=== PATIENT | female | born 1940 | race Caucasian/White ===

== ENCOUNTER → 2017-11-03 | Outpatient (CLI) | payer MEDICARE ==
[2017-11-03 11:36] LABS: ALT 24 U/L (9-52); AST 23 U/L (14-36); Cholesterol 165 mg/dL (<200); HDL Cholesterol 42 mg/dL (40-60); LDL Cholesterol,Calculated 73 mg/dL (0-99); Triglycerides 248 mg/dL (<150)
== END | disposition home or self-care (01) ==
LOC: LABWHC1 10:46
PROVIDERS: ATTEND Internal Medicine Cardiovascular Disease
DX: E78.2 Mixed hyperlipidemia (principal)
CPT/HCPCS: 36415; 80061; 84450; 84460

== ENCOUNTER → 2018-07-07 | Outpatient (CLI) | payer MEDICARE | END | disposition home or self-care (01) | LOC: LABWHC1 11:45 | PROVIDERS: ATTEND Internal Medicine Cardiovascular Disease | DX: E78.2 Mixed hyperlipidemia (principal) | CPT/HCPCS: 36415; 80061; 84450; 84460 ==

== ENCOUNTER 2018-12-27 14:49 | Emergency (ER) | payer MEDICARE ==
[2018-12-27 15:38] VITALS: BP 163/68; PULSE 78; RESP 18; TEMP 98.1
[2018-12-27] MEDS ORDERED: traMADol 50 MG STARTER PACK 3 TAB BTL PO STA (15:58)
--- NOTE | 2018-12-27 16:00 | ED ---
Extremity Problem HPI - General Chief complaint: Extremity Problem,Nontraumatic Stated complaint: Hip Pain Time Seen by Provider: 12/27/18 15:39 Source: patient Mode of arrival: ambulatory Limitations: no limitations - History of Present Illness Initial comments: 78-year-old female presenting for right hip pain x 4 months. Patient states she has been told she has arthritis of the right hip. Patient's been through physical therapy. Patient states she has had imaging studies that revealed arthritis. Patient states that she takes Tylenol for this pain, she states that over the past 2 months. Increasing. She states the Tylenol no longer works. Patient denies any significant change within the last week he trauma or injury to the hip. She denies any fever or chills night sweats redness or decrease in ability to range at the right hip. Patient states it is tender with full range of motion as well as weightbearing, she states he use a walker for ambulation. Remaining review of systems negative, Patient denies any joint pain, shortness of breath, chest pain, back pain, abdominal pain, nausea or vomiting, numbness or tingling, dysuria or hematuria, constipation or diarrhea, headaches or visual changes, or any other complaints. - Related Data Home Medications Medication Instructions Recorded Confirmed Aspirin 81 mg PO DAILY 08/08/16 08/08/16 Atorvastatin [Lipitor] 80 mg PO HS 08/08/16 08/08/16 Isosorbide Mononitrate ER [Imdur] 30 mg PO DAILY 08/08/16 08/08/16 Losartan [Cozaar] 50 mg PO DAILY 08/08/16 08/08/16 Metoprolol Tartrate [Lopressor] 25 mg PO DAILY 08/08/16 08/08/16 Previous Rx's Medication Instructions Recorded traMADol HCL [Ultram] 50 mg PO Q6HR PRN 3 Days #12 tab 12/27/18 Allergies Allergy/AdvReac Type Severity Reaction Status Date / Time No Known Allergies Allergy Verified 08/08/16 20:55 Review of Systems ROS Statement: Those systems with pertinent positive or pertinent negative responses have been documented in the HPI. ROS Other: All systems not noted in ROS Statement are negative. Past Medical History Past Medical History: Coronary Artery Disease (CAD), COPD, Hypertension, Myocar dial Infarction ([place]) Additional Past Medical History / Comment(s): DIVERTICULITIS, INCONT OF URINE, UTI'S Last Myocardial Infarction Date:: 2014 History of Any Multi-Drug Resistant Organisms: None Reported Past Surgical History: Section, Heart Catheterization With Stent, Hysterectomy Additional Past Surgical History / Comment(s): cataracts removed from both eyes, COLONOSCOPY, D&C, BRONCHOSCOPY,PARTIAL HYSTERECTOMY Past Anesthesia/Blood Transfusion Reactions: No Reported Reaction Date of Last Stent Placement:: 2014 Past Psychological History: No Psychological Hx Reported Smoking Status: Current every day smoker Past Alcohol Use History: Rare Past Drug Use History: None Reported - Past Family History Father Family Medical History: Cancer Mother Family Medical History: Cancer Additional Family Medical History / Comment(s): COLON CA General Exam - General Exam Comments Initial Comments: General: The patient is awake and alert, in no distress, and does not appear acutely ill. Eye: Pupils are equal, round and reactive to light, extra-ocular movements are intact. No nystagmus. There is normal conjunctiva bilaterally. No signs of icterus. Ears, nose, mouth and throat: There are moist mucous membranes and no oral lesions. Neck: The neck is supple, there is no tenderness or JVD. Cardiovascular: There is a regular rate and rhythm. No murmur, rub or gallop is appreciated. Respiratory: Lungs are clear to auscultation, respirations are non-labored, breath sounds are equal. No wheezes, stridor, rales, or rhonchi. Musculoskeletal: Upon inspection of the right hip there is no erythema. Patient is tender to palpation over the hip joint. Patient is able to both passively and actively range at the right hip. Patient admits to tenderness, does not appear out of proportion. Strength 5/5 of the lower extremities equal and comparison bilaterally including the hips. Sensation intact both proximal and distal to complaint site. No midline tenderness to palpation of the lumbar spine. DP pulses equal bilaterally 2+. No lower extremity edema Neurological: A&O x 3. CN II-XII intact, There are no obvious motor or sensory deficits. Coordination appears grossly intact. Speech is normal. Skin: Skin is warm and dry and no rashes or lesions are noted. Psychiatric: Cooperative, appropriate mood & affect, normal judgment. Limitations: no limitations Course Vital Signs 12/27/18 15:34 Temperature 98.1 F Pulse Rate 78 Respiratory 18 Rate Blood Pressure 163/68 O2 Sat by Pulse 94 L Oximetry Medical Decision Making - Medical Decision Making Well-appearing 78-year-old male presented for right hip pain, patient states this is been ongoing for 4 months. Patient neurovascularly intact. No significant pain with passive or active range of motion. Patient states she was told she had arthritis about 2 weeks ago when she had imaging studies performed. Patient states she has undergone physical therapy and taken Tylenol for the pain. Patient states this has not helped. Patient states she needs something stronger. Patient is provided prescription for Ultram. Patient denies a significant change in pain, fall or constitutional symptoms. At this time feel patient's pain is most likely due to arthritis. Patient ambulates with walker at home. Patient was instructed to follow-up with orthopedic surgery for further evaluation and consultation outpatient in the next week. Patient is agreeable to care plan and discharge. I discussed the case with ibuprofen or Dr. Singh was agreeable to patient care plan and discharge at this time. Parameters were discussed with patient prior to discharge. Disposition Clinical Impression: Chronic right hip pain Disposition: HOME SELF-CARE Condition: Good Instructions (If sedation given, give patient instructions): Hip Pain (ED) Additional Instructions: Please use medication as discussed, no driving, drinking alcohol, the operating machinery or working under the influence of tramadol. Please follow-up with orthopedic surgery in the next week, please continue to use walker for ambulation. Please return to emergency room if the symptoms increase or worsen or for any other concerns. Prescriptions: traMADol HCL [Ultram] 50 mg PO Q6HR PRN 3 Days #12 tab PRN Reason: Pain Is patient prescribed a controlled substance at d/c from ED?: Yes When asked, does pt state using other controlled substances?: No If prescribed controlled substance>3 days was MAPS reviewed?: Prescribed <3 Days If opioid is for acute pain is fill amount 7 days or less?: Yes If Rx opioid, was Start Talking consent form obtained?: Yes Referrals: Angel Mendoza MD [Primary Care Provider] - 1-2 days Clinton Canseco DO [Doctor of Osteopathic Medicine] - 1-2 days Time of Disposition: 16:00
== END 2018-12-27 16:10 | disposition home or self-care (01) ==
LOC: EC 14:49
DX: G89.29 Other chronic pain (principal); M25.551 Pain in right hip; I25.10 Atherosclerotic heart disease of native coronary artery without angina pectoris; I10 Essential (primary) hypertension; I25.2 Old myocardial infarction; F17.200 Nicotine dependence, unspecified, uncomplicated; Z95.5 Presence of coronary angioplasty implant and graft; Z79.82 Long term (current) use of aspirin; Z79.899 Other long term (current) drug therapy
CPT/HCPCS: 99283

== ENCOUNTER 2019-01-10 23:24 | Emergency (ER) | payer MEDICARE ==
[2019-01-11] MEDS ORDERED: methylPREDNISolone SOD SUCCI 125 MG/2 ML VIAL IV STA (00:22)
[2019-01-11] MEDS ORDERED: KETOROLAC 30 MG/ML 1 ML VIAL IVP STA (00:22)
--- NOTE | 2019-01-11 01:03 | ED ---
Extremity Problem HPI - General Chief complaint: Extremity Problem,Nontraumatic Stated complaint: Hip pain Time Seen by Provider: 01/10/19 23:42 Source: patient, family, EMS Mode of arrival: EMS Limitations: no limitations - History of Present Illness Initial comments: 79-year-old female patient with osteoarthritis of the right hip presents to the emergency department today for evaluation of right hip pain. Patient states that she has been having problems of the right hip long time. Patient states he recently did see branch service specialist to perform testing and diagnosed with osteoarthritis. They have scheduled a right hip replacement for February 06 however patient states tonight the pain seems to be worse. States that she is unable to walk or move the leg because the pain is so severe. She denies any numbness or tingling to the extremity. She denies any new injury. Denies any fevers or chills with this. Patient states that she does take Advil and tramadol however the medications are not working. States that she did call the physician and they recommended she present here for further evaluation. - Related Data Home Medications Medication Instructions Recorded Confirmed Aspirin 81 mg PO DAILY 08/08/16 01/11/19 Atorvastatin [Lipitor] 80 mg PO HS 08/08/16 01/11/19 Isosorbide Mononitrate ER [Imdur] 30 mg PO DAILY 08/08/16 01/11/19 Losartan [Cozaar] 50 mg PO DAILY 08/08/16 01/11/19 Metoprolol Tartrate [Lopressor] 25 mg PO DAILY 08/08/16 01/11/19 Previous Rx's Medication Instructions Recorded traMADol HCL [Ultram] 50 mg PO Q6HR PRN 3 Days #12 tab 12/27/18 Naproxen [EC-Naprosyn] 500 mg PO BID #30 tablet. 01/11/19 Allergies Allergy/AdvReac Type Severity Reaction Status Date / Time No Known Allergies Allergy Verified 08/08/16 20:55 Review of Systems ROS Statement: Those systems with pertinent positive or pertinent negative responses have been documented in the HPI. ROS Other: All systems not noted in ROS Statement are negative. Past Medical History Past Medical History: Coronary Artery Disease (CAD), COPD, Hypertension, Myocardial Infarction ([place]), Osteoarthritis ([place]) Additional Past Medical History / Comment(s): DIVERTICULITIS, INCONT OF URINE, UTI'S Last Myocardial Infarction Date:: 2014 History of Any Multi-Drug Resistant Organisms: None Reported Past Surgical History: Section, Heart Catheterization With Stent, Hysterectomy Additional Past Surgical History / Comment(s): cataracts removed from both eyes, COLONOSCOPY, D&C, BRONCHOSCOPY,PARTIAL HYSTERECTOMY, lazer eye sx Past Anesthesia/Blood Transfusion Reactions: No Reported Reaction Date of Last Stent Placement:: 2014 Past Psychological History: No Psychological Hx Reported Smoking Status: Current every day smoker Past Alcohol Use History: Rare Past Drug Use History: None Reported - Past Family History Father Family Medical History: Cancer Mother Family Medical History: Cancer Additional Family Medical History / Comment(s): COLON [place] General Exam Limitations: no limitations General appearance: alert, in no apparent distress, other (Physical well- developed, well-nourished elderly female patient in no acute distress. Vital signs upon presentation are temperature 97.9F, pulse 72, respirations 18, blood pressure 91/76, pulse ox 99% on room air.) Eye exam: Present: normal appearance, PERRL, EOMI. Absent: scleral icterus, conjunctival injection, periorbital swelling ENT exam: Present: normal exam, normal oropharynx, mucous membranes moist Respiratory exam: Present: normal lung sounds bilaterally. Absent: respiratory distress, wheezes, rales, rhonchi, stridor Cardiovascular Exam: Present: regular rate, normal rhythm, normal heart sounds. Absent: systolic murmur, diastolic murmur, rubs, gallop, clicks GI/Abdominal exam: Present: soft, normal bowel sounds. Absent: distended, tenderness, guarding, rebound, rigid Extremities exam: Present: normal inspection, full ROM, normal capillary refill, other (Increased pain with range of motion to the right hip. Skin is otherwise pink, warm, dry. Cap refills less than 3 seconds. Pedal and posttibial pulses are 2+ and equal bilaterally.). Absent: tenderness, pedal edema, joint swelling, calf tenderness Neurological exam: Present: alert, oriented X3, CN II-XII intact Psychiatric exam: Present: normal affect, normal mood Skin exam: Present: warm, dry, intact, normal color. Absent: rash Course Vital Signs 01/10/19 01/11/19 23:25 03:41 Temperature 97.9 F 98.7 F Pulse Rate 72 82 Respiratory 18 20 Rate Blood Pressure 91/76 110/61 O2 Sat by Pulse 99 92 L Oximetry Medical Decision Making - Medical Decision Making 79 old female patient presents to the emergency department today for evaluation of increase in her chronic right hip pain. Physical examination was done unremarkable. Patient doesn't have increased pain with any attempt at movement of the right hip. No erythema or swelling. Neurovascular status are intact. Patient is scheduled to have a hip replacement on February 06 and has recently had evaluation by orthopedics including imaging. Patient did receive steroids and Toradol here in the emergency department. This did not improve her pain she was still unable to handle he. We did administer Dilaudid. Patient was then able to ambulate and does feel much better. She'll be discharged with a prescription of naproxen and the steroids. She is instructed to follow-up with branch service specialist for recheck as soon as possible. Return parameters were discussed in detail. She verbalizes understanding and agrees with this plan. Disposition Clinical Impression: Osteoarthritis of right hip Disposition: HOME SELF-CARE Condition: Good Instructions (If sedation given, give patient instructions): Osteoarthritis (ED), Hip Pain (ED) Additional Instructions: Stop taking Advil, start taking naproxen. Complete steroid prescription and full. Follow-up with the branch service specialist for recheck as soon as possible. Return to the emergency department immediately for any new, worsening, or concerning symptoms. Prescriptions: Naproxen [EC-Naprosyn] 500 mg PO BID #30 tablet.dr Is patient prescribed a controlled substance at d/c from ED?: No Referrals: Angel Mendoza MD [Primary Care Provider] - 1-2 days Clinton Canseco DO [Doctor of Osteopathic Medicine] - 1-2 days Time of Disposition: 03:57
[2019-01-11] MEDS ORDERED: HYDROmorphone 2 MG/ML 1 ML SYRINGE IM STA (02:10)
[2019-01-11] MEDS ORDERED: HYDROmorphone 1 MG/ML 1 ML SYRINGE IVP STA (03:05)
[2019-01-11 05:24] VITALS: BP 115/81; PULSE 87; RESP 18; TEMP 98.6
== END 2019-01-11 05:15 | disposition home or self-care (01) ==
LOC: EC 23:24
DX: M16.11 Unilateral primary osteoarthritis, right hip (principal); I25.10 Atherosclerotic heart disease of native coronary artery without angina pectoris; I10 Essential (primary) hypertension; I25.2 Old myocardial infarction; F17.200 Nicotine dependence, unspecified, uncomplicated; Z79.82 Long term (current) use of aspirin; Z79.899 Other long term (current) drug therapy; Z95.5 Presence of coronary angioplasty implant and graft; Z53.8 Procedure and treatment not carried out for other reasons
CPT/HCPCS: 99284; 96374; 96375 ×2; J2930; J1885; J1170

== ENCOUNTER → 2019-01-28 | Outpatient (CLI) | payer MEDICARE | END | disposition home or self-care (01) | LOC: LABPAT 10:24 | PROVIDERS: ATTEND Orthopaedic Surgery | DX: Z01.812 Encounter for preprocedural laboratory examination (principal); M16.11 Unilateral primary osteoarthritis, right hip | CPT/HCPCS: 36415; 86850; 86900; 86901; 87070 ==

== ENCOUNTER → 2019-02-01 | Outpatient (CLI) | payer MEDICARE ==
[2019-02-01 15:29] LABS: Prothrombin Time 10.5 sec (9.0-12.0)
[2019-02-01 15:40] LABS: Anisocytosis Slight; Basophils % (A) 0 %; Eosinophils # (A) 0.1 k/uL (0-0.7); Eosinophils % (A) 1 %; HCT 35.3 % (34.0-46.0); Hypochromasia Slight; Lymphocytes # (A) 2.1 k/uL (1.0-4.8); Lymphocytes % (A) 21 %; MCH 28.4 pg (25.0-35.0); MCHC 31.1 g/dL (31.0-37.0); MCV 91.3 fL (80.0-100.0); Mean Platelet Volume 7.2; Monocytes # (A) 0.5 k/uL (0-1.0); Monocytes % (A) 5 %; Neutrophils # (A) 7.1 k/uL (1.3-7.7); Neutrophils % (A) 70 %; Platelet Count 397 k/uL (150-450); RBC 3.87 m/uL (3.80-5.40); RDW 16.9 % (11.5-15.5); WBC 10.1 k/uL (3.8-10.6)
== END ==
LOC: LABPAT 14:35
PROVIDERS: ATTEND Orthopaedic Surgery
DX: Z01.812 Encounter for preprocedural laboratory examination (principal); M16.11 Unilateral primary osteoarthritis, right hip; Z51.81 Encounter for therapeutic drug level monitoring; Z79.01 Long term (current) use of anticoagulants
CPT/HCPCS: 36415; 80051; 85025; 85610

== ENCOUNTER 2019-02-07 12:06 | Inpatient (IN) | payer MEDICARE ==
--- NOTE | 2019-02-06 12:44 | HP ---
HISTORY AND PHYSICAL REASON FOR ADMISSION: Surgery scheduled 02/07/2019 Edie Villalta is a 79-year-old patient seen with symptomatic right hip osteoarthritis. We discussed treatment options. She elected to proceed with right total hip arthroplasty. Consent was obtained. Medical clearance was provided by Dr. Mendoza. Cardiac clearance was provided by Dr. Clayton. PAST MEDICAL HISTORY: Cardiovascular disease, hypertension, hyperlipidemia. PAST SURGICAL HISTORY: Cardiac catheterization with stent insertion. DAILY MEDICATIONS: Aspirin, atorvastatin, isosorbide, losartan, metoprolol. ALLERGIES: None. SOCIAL HISTORY: Smokes 1 pack of cigarettes daily. PHYSICAL EXAMINATION: Evaluation of the right hip: She has limited range of motion, severe pain. Positive hip impingement sign. Straight leg raise negative. Distal neurovascular exam intact. RADIOGRAPHS: Radiographs of the right hip revealed moderate to severe osteoarthritic changes. IMPRESSION: 1. Right hip osteoarthritis. 2. Tobacco use. 3. Hypertension. 4. Hyperlipidemia. 5. Cardiovascular disease. PLAN: Right total hip arthroplasty. Surgery 02/07/2019. MMODL / IJN: [id number] /
[2019-02-07] MEDS ORDERED: FUROSEMIDE 10 MG/ML 4 ML VIAL IV STA (12:29)
--- NOTE | 2019-02-07 12:35 | ED ---
General Adult HPI - General Stated complaint: CHF Time Seen by Provider: 02/07/19 12:10 Source: RN notes reviewed - History of Present Illness Initial comments: This is a 79-year-old female presents emergency department stating that her legs are much more swollen than normal. Patient was supposed to have surgery in the right hip today but they saw her legs so swollen and decided to send her to the emergency department instead. Patient states this is been ongoing for at least a week or to start primary medical care doctor but he did not give her any diuretics. Patient states she is not feeling short of breath but they indicated to her in preop that she was oxygenating well. Patient denies any chest pain. Patient denies any palpitations. Patient denies any recent fever chills or cough. Patient denies abdominal pain. Patient has any nausea vomiting diarrhea. Patient denies lightheadedness dizziness or near syncopal episode. - Related Data Home Medications Medication Instructions Recorded Confirmed Aspirin 81 mg PO DAILY 08/08/16 02/07/19 Atorvastatin [Lipitor] 80 mg PO DAILY 08/08/16 02/07/19 Isosorbide Mononitrate ER [Imdur] 30 mg PO DAILY 08/08/16 02/07/19 Metoprolol Tartrate [Lopressor] 25 mg PO DAILY 08/08/16 02/07/19 Acetaminophen [Tylenol Extra 1,000 mg PO Q4H PRN 01/27/19 02/07/19 Strength] Calcium Carb-Vit D 250Mg-125Un 1 tab PO BID 01/27/19 02/07/19 [Oscal 250+D] HYDROcodone/APAP 5-325MG [[place]terson 1 tab PO BID 01/27/19 02/07/19 5-325] Losartan Potassium [Cozaar] 100 mg PO DAILY 01/27/19 02/07/19 Allergies Allergy/AdvReac Type Severity Reaction Status Date / Time No Known Allergies Allergy Verified 02/07/19 12:25 Review of Systems ROS Statement: Those systems with pertinent positive or pertinent negative responses have been documented in the HPI. ROS Other: All systems not noted in ROS Statement are negative. Past Medical History Past Medical History: Coronary Artery Disease (CAD), COPD, Hypertension, Myocardial Infarction ([place]), Osteoarthritis ([place]) Additional Past Medical History / Comment(s): TAKES FEW STEPS WITH WALKER BUT MOSTLY WHEEL CHAIR BOUND DUE TO PAIN RIGHT HIP. Last Myocardial Infarction Date:: 2014 History of Any Multi-Drug Resistant Organisms: None Reported Past Surgical History: Section, Heart Catheterization With Stent, Hysterectomy Additional Past Surgical History / Comment(s): LINDSAY CATARACTS , LASER EYE SURGERY., COLONOSCOPY, D&C, BRONCHOSCOPY,PARTIAL HYSTERECTOMY Past Anesthesia/Blood Transfusion Reactions: No Reported Reaction Date of Last Stent Placement:: 2014 Smoking Status: Former smoker Additional Past Alcohol Use History / Comment(s): QUIT SMOKING 3 DAYS AGO. (JANUARY 2019), SMOKED 1 PPD, STARTED SMOKING @ 20 YRS OLD - Past Family History Father Family Medical History: Cancer Mother Family Medical History: Cancer Additional Family Medical History / Comment(s): COLON CA General Exam - General Exam Comments Initial Comments: GENERAL: Patient is well-developed and well-nourished. Patient is nontoxic and well- hydrated and is in mild distress. ENT: Neck is soft and supple. No significant lymphadenopathy is noted. Oropharynx is clear. Moist mucous membranes. Neck has full range of motion without eliciting any pain. EYES: The sclera were anicteric and conjunctiva were pink and moist. Extraocular movements were intact and pupils were equal round and reactive to light. Eyelids were unremarkable. PULMONARY: Unlabored respirations. Good breath sounds bilaterally. No audible rales rhonchi or wheezing was noted. CARDIOVASCULAR: Patient is crackles bilateral bases. ABDOMEN: Soft and nontender with normal bowel sounds. No palpable organomegaly was noted. There is no palpable pulsatile mass. SKIN: Skin is clear with no lesions or rashes and otherwise unremarkable. NEUROLOGIC: Patient is alert and oriented x3. Cranial nerves II through XII are grossly intact. Motor and sensory are also intact. Normal speech, volume and content. Symmetrical smile. MUSCULOSKELETAL: Normal extremities with adequate strength and full range of motion. patient has 2+ edema LYMPHATICS: No significant lymphadenopathy is noted PSYCHIATRIC: Normal psychiatric evaluation. Course Vital Signs 02/07/19 02/07/19 12:26 14:20 Temperature 98.7 F Pulse Rate 95 92 Respiratory 24 18 Rate Blood Pressure 132/67 144/66 O2 Sat by Pulse 92 L 93 L Oximetry Medical Decision Making - Medical Decision Making EKG shows sinus rhythm with occasional PAC at 90 bpm OH interval 240 QRS is 94 QT interval 360 QTC is 440. Patient's EKG shows T-wave inversions in precordial leads V1 through V4 Chest x-ray shows pulmonary edema. Patient also has a pleural effusion on the left. Patient's troponin was elevated he did have some EKG changes I started the patient on heparin. I gave the patient Can't Because of the Elevated Potassium As Well As Some Kayexalate. I Spoke with Dr. Morales Agreed to Admit the Patient Admitted the Patient I Consulted Cardiology and Nephrology. - Lab Data Result diagrams: 02/07/19 11:45 02/07/19 11:45 Lab Results 02/07/19 02/07/19 02/07/19 Range/Units 11:45 11:45 11:45 WBC 10.9 H (3.8-10.6) k/uL RBC 4.02 (3.80-5.40) m/uL Hgb 11.0 L (11.4-16.0) gm/dL Hct 36.2 (34.0-46.0) % MCV 90.1 (80.0-100.0) fL MCH 27.4 (25.0-35.0) pg MCHC 30.4 L (31.0-37.0) g/dL RDW 17.8 H (11.5-15.5) % Plt Count 342 (150-450) k/uL Neutrophils % 76 % Lymphocytes % 15 % Monocytes % 7 % Eosinophils % 1 % Basophils % 0 % Neutrophils # 8.3 H (1.3-7.7) k/uL Lymphocytes # 1.6 (1.0-4.8) k/uL Monocytes # 0.7 (0-1.0) k/uL Eosinophils # 0.1 (0-0.7) k/uL Basophils # 0.0 (0-0.2) k/uL Hypochromasia Moderate Poikilocytosis Slight Anisocytosis Slight PT (9.0-12.0) sec INR (<1.2) APTT (22.0-30.0) sec Sodium 135 L (137-145) mmol/L Potassium 6.0 H (3.5-5.1) mmol/L Chloride 103 (98-107) mmol/L Carbon Dioxide 19 L (22-30) mmol/L Anion Gap 13 mmol/L BUN 86 H (7-17) mg/dL Creatinine 2.78 H (0.52-1.04) mg/dL Est GFR (CKD-EPI)AfAm 18 (>60 ml/min/1.73 sqM) Est GFR (CKD-EPI)NonAf 16 (>60 ml/min/1.73 sqM) Glucose 103 H (74-99) mg/dL Calcium 8.9 (8.4-10.2) mg/dL Magnesium 2.5 H (1.6-2.3) mg/dL Total Bilirubin 0.9 (0.2-1.3) mg/dL AST 59 H (14-36) U/L ALT 29 (9-52) U/L Alkaline Phosphatase 79 (38-126) U/L Troponin I (0.000-0.034) ng/mL NT-Pro-B Natriuret Pep 72838 pg/mL Total Protein 6.3 (6.3-8.2) g/dL Albumin 3.2 L (3.5-5.0) g/dL 02/07/19 02/07/19 Range/Units 11:45 14:10 WBC (3.8-10.6) k/uL RBC (3.80-5.40) m/uL Hgb (11.4-16.0) gm/dL Hct (34.0-46.0) % MCV (80.0-100.0) fL MCH (25.0-35.0) pg MCHC (31.0-37.0) g/dL RDW (11.5-15.5) % Plt Count (150-450) k/uL Neutrophils % % Lymphocytes % % Monocytes % % Eosinophils % % Basophils % % Neutrophils # (1.3-7.7) k/uL Lymphocytes # (1.0-4.8) k/uL Monocytes # (0-1.0) k/uL Eosinophils # (0-0.7) k/uL Basophils # (0-0.2) k/uL Hypochromasia Poikilocytosis Anisocytosis PT 10.3 (9.0-12.0) sec INR 1.0 (<1.2) APTT 21.6 L (22.0-30.0) sec Sodium (137-145) mmol/L Potassium (3.5-5.1) mmol/L Chloride (98-107) mmol/L Carbon Dioxide (22-30) mmol/L Anion Gap mmol/L BUN (7-17) mg/dL Creatinine (0.52-1.04) mg/dL Est GFR (CKD-EPI)AfAm (>60 ml/min/1.73 sqM) Est GFR (CKD-EPI)NonAf (>60 ml/min/1.73 sqM) Glucose (74-99) mg/dL Calcium (8.4-10.2) mg/dL Magnesium (1.6-2.3) mg/dL Total Bilirubin (0.2-1.3) mg/dL AST (14-36) U/L ALT (9-52) U/L Alkaline Phosphatase (38-126) U/L Troponin I 0.149 H* (0.000-0.034) ng/mL NT-Pro-B Natriuret Pep pg/mL Total Protein (6.3-8.2) g/dL Albumin (3.5-5.0) g/dL Critical Care Time Critical Care Time: Yes Total Critical Care Time: 35 Disposition Clinical Impression: Pleural effusion, Acute pulmonary edema, Elevated troponin, Acute renal failure Disposition: ADMITTED IP TO THIS HOSP Referrals: Angel Mendoza MD [Primary Care Provider] - 1-2 days Time of Disposition: 15:05
[2019-02-07 13:07] LABS: Albumin 3.2 g/dL (3.5-5.0); Calcium 8.9 mg/dL (8.4-10.2); Magnesium 2.5 mg/dL (1.6-2.3); Total Bilirubin 0.9 mg/dL (0.2-1.3); Total Protein 6.3 g/dL (6.3-8.2)
[2019-02-07 13:18] LABS: Anisocytosis Slight; Basophils % (A) 0 %; Eosinophils # (A) 0.1 k/uL (0-0.7); Eosinophils % (A) 1 %; HCT 36.2 % (34.0-46.0); Hypochromasia Moderate; Lymphocytes # (A) 1.6 k/uL (1.0-4.8); Lymphocytes % (A) 15 %; MCH 27.4 pg (25.0-35.0); MCHC 30.4 g/dL (31.0-37.0); MCV 90.1 fL (80.0-100.0); Mean Platelet Volume 7.9; Monocytes # (A) 0.7 k/uL (0-1.0); Monocytes % (A) 7 %; Neutrophils # (A) 8.3 k/uL (1.3-7.7); Neutrophils % (A) 76 %; Platelet Count 342 k/uL (150-450); Poikilocytosis Slight; RBC 4.02 m/uL (3.80-5.40); RDW 17.8 % (11.5-15.5); WBC 10.9 k/uL (3.8-10.6)
--- NOTE | 2019-02-07 13:52 | XR ---
EXAMINATION TYPE: XR chest 2V DATE OF EXAM: 02/07/2019 COMPARISON: Prior chest x-ray 08/08/2016 HISTORY: Difficulty breathing TECHNIQUE: Frontal and lateral views of the chest are obtained. FINDINGS: There is retrocardiac density with obscured left hemidiaphragm. Central vascularity and in terstitium are increased. There is no pneumothorax. Aorta is dense. Patient is rotated. Heart size is likely stable accounting for technique, likely enlarged. IMPRESSION: Correlate for congestive heart failure with associated left pleural effusion and associa nima atelectasis versus edema, pneumonia not excluded. Follow-up recommended.
[2019-02-07 14:52] LABS: Prothrombin Time 10.3 sec (9.0-12.0)
[2019-02-07] MEDS ORDERED: CALCIUM CHLORIDE 100 MG/ML 10 ML SYRINGE IVP STA (14:59)
[2019-02-07] MEDS ORDERED: SODIUM POLYSTYRENE SULFONATE 15 GM/60 ML BOTTLE PO STA (14:59)
[2019-02-07 15:00] LABS: Partial Thromboplastin Time 21.6 sec (22.0-30.0)
[2019-02-07] MEDS ORDERED: HEPARIN SODIUM,PORCINE 5,000 UNIT/ML 1 ML VIAL IV ONE (15:01)
[2019-02-07] MEDS: SODIUM CHLORIDE 0.9% 500 ML 500 ML IV SCH (15:57)
[2019-02-07] MEDS: HEPARIN SOD,PORK IN 0.45% NACL 25,000 UNIT in 0.45% NACL 1 250ML.BAG IV SCH (16:06)
[2019-02-07] MEDS: NITROGLYCERIN OINT 1 INCH/GM PACKET TOPICAL SCH ×2 (17:37→21:37)
[2019-02-07] MEDS: FUROSEMIDE 10 MG/ML 4 ML VIAL IV SCH (21:37)
[2019-02-07] MEDS ORDERED: ACETAMINOPHEN TAB 500 MG TAB PO PRN (22:08)
[2019-02-07] MEDS: HYDROcodone/APAP 5-325MG 1 EACH TAB PO PRN (22:20)
[2019-02-08] MEDS ORDERED: HYDROcodone/APAP 5-325MG 1 EACH TAB PO SCH
[2019-02-08] MEDS: FUROSEMIDE 10 MG/ML 4 ML VIAL IV SCH ×3 (06:24→20:33)
[2019-02-08 07:03] LABS: Albumin 2.7 g/dL (3.5-5.0); Calcium 8.9 mg/dL (8.4-10.2); Magnesium 2.4 mg/dL (1.6-2.3); Total Bilirubin 0.8 mg/dL (0.2-1.3); Total Protein 5.6 g/dL (6.3-8.2)
[2019-02-08 07:04] LABS: Potassium 4.9 mmol/L (3.5-5.1)
[2019-02-08] MEDS: NITROGLYCERIN OINT 1 INCH/GM PACKET TOPICAL SCH ×2 (08:24→12:11)
[2019-02-08] MEDS: HYDROcodone/APAP 5-325MG 1 EACH TAB PO PRN ×2 (08:24→20:32)
[2019-02-08] MEDS: ATORVASTATIN 80 MG TAB PO SCH (08:24)
[2019-02-08] MEDS ORDERED: LOSARTAN 50 MG TAB PO SCH (09:00)
--- NOTE | 2019-02-08 10:45 | P.NPCON ---
History of Present Illness - Reason for Consult acute renal failure - History of Present Illness Reason for consultation: Acute kidney injury History of present illness: Patient is a 79-year-old female seen in renal consultation for acute kidney injury. Patient's creatinine in 2014 was in the range of 0.6-0.8. In August 2016 it was 1.19. No other records available. Patient presented to the [facility] with lower extremity edema. Patient has history of arthritis and was scheduled to undergo right hip arthroplasty but was subsequently sent to the hospital due to edema. The surgery has been delayed for now. Creatinine admission was 2.78 and is 2.52 today. She is maintained on Lasix 40 mg IV 3 times daily. She admits to good urine output. Denies hematuria or dysuria. Denies use of nonsteroidals. Denies family history of renal disease. No history of diabetes. Potassium level was 6 on admission which was medically treated. It is 4.9 this morning. She does have history of coronary artery disease and had a stent placed in the past. Her BNP level was noted to be elevated at 49,300 on admission. Chest x-ray was suggestive of vascular congestion. She does have edema in her lower extremities. No vomiting or diarrhea. No fever or chills. No cough. Vital signs are stable. General: The patient appeared well nourished and normally developed. HEENT: Head exam is unremarkable. Neck is without jugular venous distension. LUNGS: Lungs are clear to auscultation and percussion. Breath sounds decreased. HEART: Rate and Rhythm are regular. First and second heart sounds normal. No m urmurs, rubs or gallops. ABDOMEN: Abdominal exam reveals normal bowel sounds. Non-tender and non-di stended. No evidence of peritonitis. EXTREMITITES: 1+ edema. Past Medical History Past Medical History: Coronary Artery Disease (CAD), COPD, Hypertension, Myoca rdial Infarction (IA), Osteoarthritis (OA) Additional Past Medical History / Comment(s): TAKES FEW STEPS WITH WALKER BUT MOSTLY WHEEL CHAIR BOUND DUE TO PAIN RIGHT HIP. Last Myocardial Infarction Date:: 2014 History of Any Multi-Drug Resistant Organisms: None Reported Past Surgical History: Section, Heart Catheterization With Stent, Hysterectomy Additional Past Surgical History / Comment(s): LINDSAY CATARACTS , LASER EYE SURGERY., COLONOSCOPY, D&C, BRONCHOSCOPY,PARTIAL HYSTERECTOMY Past Anesthesia/Blood Transfusion Reactions: No Reported Reaction Date of Last Stent Placement:: 2014 Past Psychological History: No Psychological Hx Reported Smoking Status: Former smoker Past Alcohol Use History: None Reported Additional Past Alcohol Use History / Comment(s): REPORTS CURRENTLY SMOKING 5 CIGARETTES PER DAY Past Drug Use History: None Reported - Past Family History Father Family Medical History: Cancer Mother Family Medical History: Cancer Additional Family Medical History / Comment(s): COLON CA Medications and Allergies Home Medications Medication Instructions Recorded Confirmed Type Aspirin 81 mg PO DAILY 08/08/16 02/07/19 History Atorvastatin [Lipitor] 80 mg PO DAILY 08/08/16 02/07/19 History Isosorbide Mononitrate ER [Imdur] 30 mg PO DAILY 08/08/16 02/07/19 History Metoprolol Tartrate [Lopressor] 25 mg PO DAILY 08/08/16 02/07/19 History Acetaminophen [Tylenol Extra 1,000 mg PO Q4H PRN 01/27/19 02/07/19 History Strength] Calcium Carb-Vit D 250Mg-125Un 1 tab PO BID 01/27/19 02/07/19 History [Oscal 250+D] HYDROcodone/APAP 5-325MG [Ola 1 tab PO BID 01/27/19 02/07/19 History 5-325] Losartan Potassium [Cozaar] 100 mg PO DAILY 01/27/19 02/07/19 History Allergies Allergy/AdvReac Type Severity Reaction Status Date / Time No Known Allergies Allergy Verified 02/07/19 20:02 Physical Exam Vitals: Vital Signs Temp Pulse Pulse Resp BP BP Pulse Ox 02/08/19 08:00 97.9 F 117 H 20 175/70 94 L 02/08/19 04:00 98.1 F 90 20 139/77 94 L 02/08/19 03:25 90 20 02/08/19 00:00 98.5 F 108 H 20 100/64 95 02/07/19 20:00 98.4 F 110 H 20 145/98 94 L 02/07/19 17:00 98.3 F 96 16 168/71 95 02/07/19 16:01 89 22 175/70 94 L 02/07/19 16:00 99.0 F 89 104 H 18 119/75 90/50 94 L 02/07/19 14:20 92 18 144/66 93 L 02/07/19 12:26 98.7 F 95 24 132/67 92 L Intake and Output 02/07/19 02/08/19 02/08/19 22:59 06:59 14:59 Intake Total 240 137.152 240 Output Total 1100 400 Balance -860 137.152 -160 Intake: Intake, IV Titration 137.152 Amount Heparin Sod,Pork in 0.45% 137.152 NaCl 25,000 unit In 0.45 % NaCl 1 250ml.bag @ 12 UNITS/KG/HR 8.491 mls/hr IV .Q24H [facility] Rx#: [id number] Oral 240 240 Output: Urine 1100 400 Other: # Voids 1 2 # Bowel Movements 1 Weight 50.5 kg Results - Lab Results Most recent lab results Calcium 8.9 mg/dL (8.4-10.2) 02/08/19 05:13 Magnesium 2.4 mg/dL (1.6-2.3) H 02/08/19 05:13 02/07/19 11:45 02/08/19 05:13 Assessment and Plan Plan: Assessment: 1. Acute kidney injury mostly prerenal secondary to cardiorenal syndrome. Creatinine 2.78 on admission and is 2.53 today. Baseline creatinine in the range of 0.6-0.8 from 2015. 2. Volume overload. Improving with diuresis. 3. Hyperkalemia secondary to acute kidney injury, metabolic acidosis and losartan. Improved with medical management. 4. Osteoarthritis of the right hip. Surgery delayed for now. 5. Benign hypertension. 6. Metabolic acidosis secondary to acute kidney injury. Better. Plan: Maintain Lasix 40 mg IV 3 times daily. Maintain Cozaar but need to hold the systolic blood pressure less than 120. Check urinalysis. Check renal ultrasound. Continue to monitor renal function and urine output. Thank you for the consultation. I will continue to follow the patient with you during her hospital stay.
--- NOTE | 2019-02-08 11:39 | US ---
EXAMINATION TYPE: US kidneys/renal and bladder DATE OF EXAM: 02/08/2019 COMPARISON: NONE CLINICAL HISTORY: tanya. EXAM MEASUREMENTS: Right Kidney: 10.9 x 4.1 x 4.7 cm Left Kidney: 10.3 x 4.7 x 5.6 cm Right Kidney: No hydronephrosis or masses seen Left Kidney: multiple cysts, largest measures 3.7 x 3.1 x 3.9 cm Bladder: wnl Bilateral Jets seen: No Incidental note is made of left pleural effusion. Cortical medullary junction and renal cortical echogenicity maintained. IMPRESSION: 1. Multiple simple appearing left renal cysts. Cortical medullary junction is maintained. 2. Incidental note made of a left pleural effusion.
--- NOTE | 2019-02-08 12:36 | P.CNOR ---
History of Present Illness - [facility] Consult date: 02/08/19 Consult reason: joint pain History of present illness: Patient is a 79-year-old female with Dr. Canseco, she has a known history of right hip osteoarthritis with significant discomfort. She was scheduled yester day for a right direct anterior total hip arthroplasty, it was determined in the preoperative area that the patient was in questionable heart failure. Surgery was canceled, she was admitted to the stepdown unit on 3 S. Multiple medical specialists having consult for her care. Patient was examined today at bedside, she is resting comfortably. She does note some discomfort in the right groin with movement. There is family at bedside today. She has no other orthopedic complaints this time. Review of Systems Constitutional: Reports as per [facility] Past Medical History Past Medical History: Coronary Artery Disease (CAD), COPD, Hypertension, Myocardial Infarction (MD), Osteoarthritis (OA) Additional Past Medical History / Comment(s): TAKES FEW STEPS WITH WALKER BUT MOSTLY WHEEL CHAIR BOUND DUE TO PAIN RIGHT HIP. Last Myocardial Infarction Date:: 2014 History of Any Multi-Drug Resistant Organisms: None Reported Past Surgical History: Section, Heart Catheterization With Stent, Hysterectomy Additional Past Surgical History / Comment(s): LINDSAY CATARACTS , LASER EYE SURGERY., COLONOSCOPY, D&C, BRONCHOSCOPY,PARTIAL HYSTERECTOMY Past Anesthesia/Blood Transfusion Reactions: No Reported Reaction Date of Last Stent Placement:: 2014 Past Psychological History: No Psychological Hx Reported Smoking Status: Former smoker Past Alcohol Use History: None Reported Additional Past Alcohol Use History / Comment(s): REPORTS CURRENTLY SMOKING 5 CIGARETTES PER DAY Past Drug Use History: None Reported - Past Family History Father Family Medical History: Cancer Mother Family Medical History: Cancer Additional Family Medical History / Comment(s): COLON CA Medications and Allergies Home Medications Medication Instructions Recorded Confirmed Type Aspirin 81 mg PO DAILY 08/08/16 02/07/19 History Atorvastatin [Lipitor] 80 mg PO DAILY 08/08/16 02/07/19 History Isosorbide Mononitrate ER [Imdur] 30 mg PO DAILY 08/08/16 02/07/19 History Metoprolol Tartrate [Lopressor] 25 mg PO DAILY 08/08/16 02/07/19 History Acetaminophen [Tylenol Extra 1,000 mg PO Q4H PRN 01/27/19 02/07/19 History Strength] Calcium Carb-Vit D 250Mg-125Un 1 tab PO BID 01/27/19 02/07/19 History [Oscal 250+D] HYDROcodone/APAP 5-325MG [Kathleen 1 tab PO BID 01/27/19 02/07/19 History 5-325] Losartan Potassium [Cozaar] 100 mg PO DAILY 01/27/19 02/07/19 History Allergies Allergy/AdvReac Type Severity Reaction Status Date / Time No Known Allergies Allergy Verified 02/07/19 20:02 Physical Examination Right lower extremity: No open lesions or sores present in the hip area Logroll maneuver of the hip reproduces some discomfort in the groin, she can straight leg raising minimal difficulty Plantar flexion, dorsiflexion, EHL, FHL are intact Sensory exam to light touch throughout extremities intact, dorsal pedis pulses 2+ Results - Labs Labs: Abnormal Lab Results - Last 24 Hours (Table) 02/07/19 02/07/19 02/07/19 Range/Units 11:45 11:45 11:45 WBC 10.9 H (3.8-10.6) k/uL Hgb 11.0 L (11.4-16.0) gm/dL MCHC 30.4 L (31.0-37.0) g/dL RDW 17.8 H (11.5-15.5) % Neutrophils # 8.3 H (1.3-7.7) k/uL APTT (22.0-30.0) sec Sodium 135 L (137-145) mmol/L Potassium 6.0 H (3.5-5.1) mmol/L Carbon Dioxide 19 L (22-30) mmol/L BUN 86 H (7-17) mg/dL Creatinine 2.78 H (0.52-1.04) mg/dL Glucose 103 H (74-99) mg/dL Magnesium 2.5 H (1.6-2.3) mg/dL AST 59 H (14-36) U/L Troponin I 0.149 H* (0.000-0.034) ng/mL Total Protein (6.3-8.2) g/dL Albumin 3.2 L (3.5-5.0) g/dL 02/07/19 02/07/19 02/07/19 Range/Units 14:10 21:32 21:32 WBC (3.8-10.6) k/uL Hgb (11.4-16.0) gm/dL MCHC (31.0-37.0) g/dL RDW (11.5-15.5) % Neutrophils # (1.3-7.7) k/uL APTT 21.6 L 41.7 H (22.0-30.0) sec Sodium (137-145) mmol/L Potassium (3.5-5.1) mmol/L Carbon Dioxide (22-30) mmol/L BUN (7-17) mg/dL Creatinine (0.52-1.04) mg/dL Glucose (74-99) mg/dL Magnesium (1.6-2.3) mg/dL AST (14-36) U/L Troponin I 0.146 H* (0.000-0.034) ng/mL Total Protein (6.3-8.2) g/dL Albumin (3.5-5.0) g/dL 02/08/19 02/08/19 02/08/19 Range/Units 03:29 05:13 05:13 WBC (3.8-10.6) k/uL Hgb (11.4-16.0) gm/dL MCHC (31.0-37.0) g/dL RDW (11.5-15.5) % Neutrophils # (1.3-7.7) k/uL APTT 45.7 H (22.0-30.0) sec Sodium (137-145) mmol/L Potassium (3.5-5.1) mmol/L Carbon Dioxide (22-30) mmol/L BUN 85 H (7-17) mg/dL Creatinine 2.53 H (0.52-1.04) mg/dL Glucose (74-99) mg/dL Magnesium 2.4 H (1.6-2.3) mg/dL AST 65 H (14-36) U/L Troponin I 0.136 H* (0.000-0.034) ng/mL Total Protein 5.6 L (6.3-8.2) g/dL Albumin 2.7 L (3.5-5.0) g/dL H & H 02/07/19 Range/Units 11:45 Hgb 11.0 L (11.4-16.0) gm/dL Hct 36.2 (34.0-46.0) % Coagulation 02/07/19 Range/Units 14:10 INR 1.0 (<1.2) Result Diagrams: 02/07/19 11:45 02/08/19 05:13 Assessment and Plan Plan: Assessment: 1. Right hip pain 2. Right hip osteoarthritis 3. Multiple medical comorbidities Plan: We did tentatively schedule patient for her hip surgery on 02/10/2019, pending clearances from other medical specialties Patient may weight-bear as tolerated with walker Pain control, oral medications needed Other medical specially recommendations at this time We'll continue to follow patient during inpatient stay Time with Patient: Less than 30
[2019-02-08] MEDS: HEPARIN SOD,PORK IN 0.45% NACL 25,000 UNIT in 0.45% NACL 1 250ML.BAG IV SCH (13:08)
[2019-02-08] MEDS: SODIUM CHLORIDE 0.9% 500 ML 500 ML IV SCH (13:08)
[2019-02-08 14:35] LABS: Appearance,Urine Cloudy (Clear); Bacteria,Urine Rare /hpf; Bilirubin,Urine Negative (Negative); Blood,Urine Negative (Negative); Color,Urine Light Yellow; Glucose,Urine (UA) Negative (Negative); Ketones,Urine Negative (Negative); Leukocyte Esterase,Urine Trace (Negative); Mucus,Urine Rare /hpf; Nitrite,Urine Negative (Negative); Protein,Urine Trace (Negative); RBC,Urine <1 /hpf (0-5); Squamous Epithelial Cell,Urine 1 /hpf (0-4); Urobilinogen,Urine <2.0 mg/dL (<2.0); WBC,Urine 3 /hpf (0-5)
[2019-02-08] MEDS ORDERED: HYDROcodone/APAP 5-325MG 1 EACH TAB ONE (15:20)
[2019-02-08] MEDS ORDERED: HEPARIN SODIUM,PORCINE 5,000 UNIT/ML 1 ML VIAL ONE (15:20)
[2019-02-08] MEDS: HEPARIN SODIUM,PORCINE 5,000 UNIT/ML 1 ML VIAL SQ SCH ×2 (16:40→23:54)
--- NOTE | 2019-02-08 16:57 | P.CRDCN ---
History of Present Illness Consult date: 02/08/19 Requesting physician: Justin Mendez Consult reason: congestive heart failure Chief complaint: Shortness of breath bilateral lower extremity edema History of present illness: This is a 79-year-old female with history of hypertension, hyperlipidemia, coronary artery disease with prior stent placement, COPD, she has also history of right hip osteoarthritis with significant discomfort on a regular basis. She was scheduled to undergo a right direct anterior total hip arthroplasty, it was determined in the preoperative area that the patient was in questionable heart failure therefore the surgery was canceled and she was admitted to the cardiac unit where we have seen her today in consultation. According to the patient, she's been having this noted swelling for quite some time, and it was felt that this was from her arthritis. He has also not been eating and drinking enough at home, because she has not wanted to have to move much to go to the bathroom because of the pain in her hip. Her blood pressure on arrival here 132/60 with a heart rate of 90, 92% on 2 L of oxygen. Blood pressure this morning 112/50 with a heart rate of 90, 95% on 5 L of oxygen. Chest x-ray showed congestive heart failure with associated left-sided pleural effusion and associated atelectasis versus edema. EKG showed normal sinus rhythm with incomplete right bundle branch block pattern and nonspecific ST-T wave changes. Ultrasound of the abdomen and bladder showed multiple simple appearing left renal cysts. Left pleural effusion noted. White blood cell count 10.9, hemoglobin 11.0, platelet count 342. Sodium 138, potassium 4.9, BUN 85 and 2.5 creatinine today. Yesterday her BUN was 86 and creatinine was 2.7. Patient's creatinine in 2014 was in the range of 0.6-0.8, in August 2016 was 1.1. BNP level49,300. Troponins 0.14, 0.14, 0.13. The patient was initiated on IV Lasix 40 mg every 8 hourly. She is also on Cozaar at home which we will discontinue at this time and start the patient on hydralazine. It was explained to the patient and her family in detail, that we would need to postpone her surgery until she is medically stable. We will obtain an echocardiogram with Yobany rocha, continue to laura. Past Medical History Past Medical History: Coronary Artery Disease (CAD), COPD, Hypertension, Myocardial Infarction (CT), Osteoarthritis (OA) Additional Past Medical History / Comment(s): TAKES FEW STEPS WITH WALKER BUT MOSTLY WHEEL CHAIR BOUND DUE TO PAIN RIGHT HIP. Last Myocardial Infarction Date:: 2014 History of Any Multi-Drug Resistant Organisms: None Reported Past Surgical History: Section, Heart Catheterization With Stent, Hysterectomy Additional Past Surgical History / Comment(s): LINDSAY CATARACTS , LASER EYE SURGERY., COLONOSCOPY, D&C, BRONCHOSCOPY,PARTIAL HYSTERECTOMY Past Anesthesia/Blood Transfusion Reactions: No Reported Reaction Date of Last Stent Placement:: 2014 Past Psychological History: No Psychological Hx Reported Smoking Status: Former smoker Past Alcohol Use History: None Reported Additional Past Alcohol Use History / Comment(s): REPORTS CURRENTLY SMOKING 5 CIGARETTES PER DAY Past Drug Use History: None Reported - Past Family History Father Family Medical History: Cancer Mother Family Medical History: Cancer Additional Family Medical History / Comment(s): COLON CA Medications and Allergies Home Medications Medication Instructions Recorded Confirmed Type Aspirin 81 mg PO DAILY 08/08/16 02/07/19 History Atorvastatin [Lipitor] 80 mg PO DAILY 08/08/16 02/07/19 History Isosorbide Mononitrate ER [Imdur] 30 mg PO DAILY 08/08/16 02/07/19 History Metoprolol Tartrate [Lopressor] 25 mg PO DAILY 08/08/16 02/07/19 History Acetaminophen [Tylenol Extra 1,000 mg PO Q4H PRN 01/27/19 02/07/19 History Strength] Calcium Carb-Vit D 250Mg-125Un 1 tab PO BID 01/27/19 02/07/19 History [Oscal 250+D] HYDROcodone/APAP 5-325MG [Cromwell 1 tab PO BID 01/27/19 02/07/19 History 5-325] Losartan Potassium [Cozaar] 100 mg PO DAILY 01/27/19 02/07/19 History Allergies Allergy/AdvReac Type Severity Reaction Status Date / Time No Known Allergies Allergy Verified 02/07/19 20:02 Physical Exam Vitals: Vital Signs Temp Pulse Pulse Resp BP BP Pulse Ox 02/08/19 11:41 97.5 F L 95 18 112/55 95 02/08/19 08:00 97.9 F 117 H 20 175/70 94 L 02/08/19 04:00 98.1 F 90 20 139/77 94 L 02/08/19 03:25 90 20 02/08/19 00:00 98.5 F 108 H 20 100/64 95 02/07/19 20:00 98.4 F 110 H 20 145/98 94 L 02/07/19 17:00 98.3 F 96 16 168/71 95 Intake and Output 02/08/19 02/08/19 02/08/19 06:59 14:59 22:59 Intake Total 137.152 549.63 Output Total 400 Balance 137.152 149.63 Intake: Intake, IV Titration 137.152 69.63 Amount Heparin Sod,Pork in 0.45% 137.152 69.63 NaCl 25,000 unit In 0.45 % NaCl 1 250ml.bag @ 12 UNITS/KG/HR 8.491 mls/hr IV .Q24H [facility] Rx#: [id number] Oral 480 Output: Urine 400 Other: # Voids 2 # Bowel Movements 1 Weight 50.5 kg PHYSICAL EXAMINATION: GENERAL: 79-year-old female in no acute distress at the time of my examination HEENT: Head is atraumatic, normocephalic. Pupils equal, round. Sclera anic teric. Conjunctiva are clear. Mucous membranes of the mouth are moist. Neck is supple. There is elevated jugular venous pressure. No carotid bruit is heard. HEART EXAMINATION: Heart S1 S2 1 systolic murmur is heard CHEST EXAMINATION: Lungs reveal rales bilaterally with diminished air entry to the bases, left greater than right ABDOMEN: Soft, nontender. Bowel sounds are heard. No organomegaly noted. EXTREMITIES: 2+ peripheral pulses with 2+ evidence of peripheral edema and no calf tenderness noted. NEUROLOGIC patient is awake, alert and oriented 3 . . Results 02/07/19 11:45 02/08/19 05:13 Cardiac Enzymes 02/07/19 02/08/19 02/08/19 Range/Units 21:32 03:29 05:13 AST 65 H (14-36) U/L Troponin I 0.146 H* 0.136 H* (0.000-0.034) ng/mL Coagulation 02/07/19 02/08/19 02/08/19 Range/Units 21:32 05:13 12:37 APTT 41.7 H 45.7 H 46.3 H (22.0-30.0) sec Comprehensive Metabolic Panel 02/07/19 02/08/19 Range/Units 21:32 05:13 Sodium 138 (137-145) mmol/L Potassium 4.9 4.9 (3.5-5.1) mmol/L Chloride 107 (98-107) mmol/L Carbon Dioxide 22 (22-30) mmol/L BUN 85 H (7-17) mg/dL Creatinine 2.53 H (0.52-1.04) mg/dL Glucose 88 (74-99) mg/dL Calcium 8.9 (8.4-10.2) mg/dL AST 65 H (14-36) U/L ALT 32 (9-52) U/L Alkaline Phosphatase 64 (38-126) U/L Total Protein 5.6 L (6.3-8.2) g/dL Albumin 2.7 L (3.5-5.0) g/dL Current Medications Generic Name Dose Route Start Last Admin Trade Name Freq PRN Reason Stop Dose Admin Acetaminophen 1,000 mg 02/07/19 22:08 Tylenol Tab PO Q6H PRN Pain Hydrocodone Bitart/Acetaminophen 2 each 02/07/19 22:10 02/08/19 08:24 Cromwell 5-325 PO 2 each Q6HR PRN Administration Pain Atorvastatin Calcium 80 mg 02/08/19 09:00 02/08/19 08:24 Lipitor PO 80 mg DAILY [facility] Administration Furosemide 40 mg 02/07/19 22:00 02/08/19 13:07 Lasix IV 40 mg Q8H [facility] Administration Heparin Sodium (Porcine) 5,000 unit 02/08/19 16:00 02/08/19 16:40 Heparin SQ Not Given Q8HR [facility] Sodium Chloride 500 mls @ 20 mls/hr 02/07/19 15:30 02/08/19 13:08 Saline 0.9% IV 20 mls/hr .Q24H [facility] Administration Losartan Potassium 100 mg 02/08/19 09:00 02/08/19 08:24 Cozaar PO 100 mg DAILY [facility] Administration Intake and Output 02/08/19 02/08/19 02/08/19 06:59 14:59 22:59 Intake Total 137.152 549.63 Output Total 400 Balance 137.152 149.63 Intake: Intake, IV Titration 137.152 69.63 Amount Heparin Sod,Pork in 0.45% 137.152 69.63 NaCl 25,000 unit In 0.45 % NaCl 1 250ml.bag @ 12 UNITS/KG/HR 8.491 mls/hr IV .Q24H [facility] Rx#: [id number] Oral 480 Output: Urine 400 Other: # Voids 2 # Bowel Movements 1 Weight 50.5 kg 02/07/19 11:45 02/08/19 05:13 EKG Interpretations (text) EKG shows a normal sinus rhythm with PACs and incomplete right bundle branch block pattern. Assessment and Plan Plan: Assessment and plan #1 congestive cardiac failure, LV function unknown #2 acute kidney injury #3 hyperkalemia #4 hypertension #5 hyperlipidemia #6 coronary artery disease with prior stent placement #7 osteoarthritis of the right hip, surgery delayed for now Plan We'll obtain an echocardiogram with Doppler study to assess the LV function, we will discontinue the Cozaar and start the patient on hydralazine at this time maintaining her blood pressure under adequate control. Continue with IV Lasix monitoring intake and output along with daily weights and daily lytes BUN and creatinine. His point in time patient is not medically stable to undergo surgery, continue current therapy. DNP note has been reviewed, I agree with a documented findings and plan of care. Patient was seen and examined.
[2019-02-08] MEDS: hydrALAZINE HCL 50 MG TAB PO SCH ×2 (17:37→20:33)
--- NOTE | 2019-02-08 18:28 | P.HPIM ---
History of Present Illness H&P Date: 02/08/19 Chief Complaint: short of breath History of presenting complaint: Severity pleasant 79-year-old patient of follows with from [place]. Her button sewer hand is Dr. Mauro Clayton. Chronic stable medical conditions include coronary artery with stent, COPD, hypertension, osteoarthritis. Patient was due to get a right hip surgery done yesterday. But patient of recently has become increasingly short of breath and wheezing increasing leg swelling. Finding it difficult to get around the house. This is been coming on about 3-4 weeks' time. No fever or chills. No sputum. Surgery was canceled and patient was admitted for the same. Patient currently got oxygen as has a walker. Patient's daughter and [id number] present. No chest pain. Review of systems: GEN.: Tired EYES: None HEENT: None NECK: None RESPIRATORY: Short of breath, cough, wheezing CARDIOVASCULAR: No chest pain, edema GASTROINTESTINAL: None GENITOURINARY: None MUSCULOSKELETAL: Pain In many joints LYMPHATICS: None HEMATOLOGICAL: None PSYCHIATRY: None NEUROLOGICAL: None Past medical history: Coronary artery with stent, COPD, hypertension, osteoarthritis Social history smoking a pack a day for 60 years for last 3-4 week is down to a few cigarettes a day. No alcohol. Lives with her boyfriend. Uses a walker. Investigations reviewed in the clinical context White count 10.9 hemoglobin 11 platelets 342 potassium 6 BUN 86 creatinine 2.78 Troponin I 0.149, 0.146, 0.136 EKG-flipped T waves in anterior leads Chest [id number] closely reviewed by me shows pulmonary edema Assessment: -Acute congestive heart failure exacerbation, EF not known -Acute COPD exacerbation and a current smoker -Chronic nicotine dependence patient active cigarette smoker -Primary osteoarthritis in multiple joints bilateral special he the right hip -Coronary artery disease diseases a prior history of stent -Essential hypertension -Acute hypoxic respiratory failure combination of COPD and CHF -Hyperkalemia in the setting of acute renal failure -Acute renal failure probably cardiorenal syndrome cannot rule out chronic kidney disease -Metabolic acidosis due to renal failure Plan: This is started on IV Lasix. Lovenox for DVT prophylaxis. We'll start the patient on DuoNeb's and bronchodilators and also stated IV steroids. Patient surgery currently is postponed. 2-D echocardiogram will be done. Also patient is made to cardiology and nephrology. Patient is to receive a cocktail for hyperkalemia. Repeat potassium is better. Adding bicarbonate. Care was discussed detail with the patient and family the bedside. Past Medical History Past Medical History: Coronary Artery Disease (CAD), COPD, Hypertension, Myocardial Infarction (IA), Osteoarthritis (OA) Additional Past Medical History / Comment(s): TAKES FEW STEPS WITH WALKER BUT MOSTLY WHEEL CHAIR BOUND DUE TO PAIN RIGHT HIP. Last Myocardial Infarction Date:: 2014 History of Any Multi-Drug Resistant Organisms: None Reported Past Surgical History: Section, Heart Catheterization With Stent, Hysterectomy Additional Past Surgical History / Comment(s): LINDSAY CATARACTS , LASER EYE SURGERY., COLONOSCOPY, D&C, BRONCHOSCOPY,PARTIAL HYSTERECTOMY Past Anesthesia/Blood Transfusion Reactions: No Reported Reaction Date of Last Stent Placement:: 2014 Past Psychological History: No Psychological Hx Reported Smoking Status: Former smoker Past Alcohol Use History: None Reported Additional Past Alcohol Use History / Comment(s): REPORTS CURRENTLY SMOKING 5 CIGARETTES PER DAY Past Drug Use History: None Reported - Past Family History Father Family Medical History: Cancer Mother Family Medical History: Cancer Additional Family Medical History / Comment(s): COLON CA Medications and Allergies Home Medications Medication Instructions Recorded Confirmed Type Aspirin 81 mg PO DAILY 08/08/16 02/07/19 History Atorvastatin [Lipitor] 80 mg PO DAILY 08/08/16 02/07/19 History Isosorbide Mononitrate ER [Imdur] 30 mg PO DAILY 08/08/16 02/07/19 History Metoprolol Tartrate [Lopressor] 25 mg PO DAILY 08/08/16 02/07/19 History Acetaminophen [Tylenol Extra 1,000 mg PO Q4H PRN 01/27/19 02/07/19 History Strength] Calcium Carb-Vit D 250Mg-125Un 1 tab PO BID 01/27/19 02/07/19 History [Oscal 250+D] HYDROcodone/APAP 5-325MG [[place] 1 tab PO BID 01/27/19 02/07/19 History 5-325] Losartan Potassium [Cozaar] 100 mg PO DAILY 01/27/19 02/07/19 History Allergies Allergy/AdvReac Type Severity Reaction Status Date / Time No Known Allergies Allergy Verified 02/07/19 20:02 Physical Exam Vitals: Vital Signs Temp Pulse Pulse Resp BP BP Pulse Ox 02/08/19 11:41 97.5 F L 95 18 112/55 95 02/08/19 08:00 97.9 F 117 H 20 175/70 94 L 02/08/19 04:00 98.1 F 90 20 139/77 94 L 02/08/19 03:25 90 20 02/08/19 00:00 98.5 F 108 H 20 100/64 95 02/07/19 20:00 98.4 F 110 H 20 145/98 94 L 02/07/19 17:00 98.3 F 96 16 168/71 95 02/07/19 16:01 89 22 175/70 94 L 02/07/19 16:00 99.0 F 89 104 H 18 119/75 90/50 94 L 02/07/19 14:20 92 18 144/66 93 L 02/07/19 12:26 98.7 F 95 24 132/67 92 L Intake and Output 02/07/19 02/08/19 02/08/19 22:59 06:59 14:59 Intake Total 240 137.152 240 Output Total 1100 400 Balance -860 137.152 -160 Intake: Intake, IV Titration 137.152 Amount Heparin Sod,Pork in 0.45% 137.152 NaCl 25,000 unit In 0.45 % NaCl 1 250ml.bag @ 12 UNITS/KG/HR 8.491 mls/hr IV .Q24H [facility] Rx#: [id number] Oral 240 240 Output: Urine 1100 400 Other: # Voids 1 2 # Bowel Movements 1 Weight 50.5 kg Results CBC & Chem 7: 02/07/19 11:45 02/08/19 05:13 Labs: Abnormal Lab Results - Last 24 Hours (Table) 02/07/19 02/07/19 02/07/19 Range/Units 11:45 11:45 11:45 WBC 10.9 H (3.8-10.6) k/uL Hgb 11.0 L (11.4-16.0) gm/dL MCHC 30.4 L (31.0-37.0) g/dL RDW 17.8 H (11.5-15.5) % Neutrophils # 8.3 H (1.3-7.7) k/uL APTT (22.0-30.0) sec Sodium 135 L (137-145) mmol/L Potassium 6.0 H (3.5-5.1) mmol/L Carbon Dioxide 19 L (22-30) mmol/L BUN 86 H (7-17) mg/dL Creatinine 2.78 H (0.52-1.04) mg/dL Glucose 103 H (74-99) mg/dL Magnesium 2.5 H (1.6-2.3) mg/dL AST 59 H (14-36) U/L Troponin I 0.149 H* (0.000-0.034) ng/mL Total Protein (6.3-8.2) g/dL Albumin 3.2 L (3.5-5.0) g/dL 02/07/19 02/07/19 02/07/19 Range/Units 14:10 21:32 21:32 WBC (3.8-10.6) k/uL Hgb (11.4-16.0) gm/dL MCHC (31.0-37.0) g/dL RDW (11.5-15.5) % Neutrophils # (1.3-7.7) k/uL APTT 21.6 L 41.7 H (22.0-30.0) sec Sodium (137-145) mmol/L Potassium (3.5-5.1) mmol/L Carbon Dioxide (22-30) mmol/L BUN (7-17) mg/dL Creatinine (0.52-1.04) mg/dL Glucose (74-99) mg/dL Magnesium (1.6-2.3) mg/dL AST (14-36) U/L Troponin I 0.146 H* (0.000-0.034) ng/mL Total Protein (6.3-8.2) g/dL Albumin (3.5-5.0) g/dL 02/08/19 02/08/19 02/08/19 Range/Units 03:29 05:13 05:13 WBC (3.8-10.6) k/uL Hgb (11.4-16.0) gm/dL MCHC (31.0-37.0) g/dL RDW (11.5-15.5) % Neutrophils # (1.3-7.7) k/uL APTT 45.7 H (22.0-30.0) sec Sodium (137-145) mmol/L Potassium (3.5-5.1) mmol/L Carbon Dioxide (22-30) mmol/L BUN 85 H (7-17) mg/dL Creatinine 2.53 H (0.52-1.04) mg/dL Glucose (74-99) mg/dL Magnesium 2.4 H (1.6-2.3) mg/dL AST 65 H (14-36) U/L Troponin I 0.136 H* (0.000-0.034) ng/mL Total Protein 5.6 L (6.3-8.2) g/dL Albumin 2.7 L (3.5-5.0) g/dL Thrombosis Risk Factor Assmnt - Choose All That Apply Each Factor Represents 1 point: Abnormal pulmonary function (COPD), Medical pt on bed rest, Obesity (BMI >25), Swollen legs (current) Each Risk Factor Represents 3 Points: Age 75 years or older Thrombosis Risk Factor Assessment Total Risk Factor Score: 7 Thrombosis Risk Factor Assessment Level: High Risk
[2019-02-08] MEDS: methylPREDNISolone SOD SUCCI 40 MG/ML 1 ML VIAL IV SCH ×2 (18:40→23:54)
[2019-02-08] MEDS: BUDESONIDE 1 MG/2 ML NEBU INHALATION SCH (20:24)
[2019-02-08] MEDS: IPRATROPIUM-ALBUTEROL 3 ML NEB INHALATION SCH (20:24)
[2019-02-08 21:02] LABS: Glucose,Whole Blood 138 mg/dL (75-99)
[2019-02-08] MEDS: INSULIN ASPART (NovoLOG) 100 UNIT/ML VIAL SQ SCH (21:06)
[2019-02-09] MEDS: IPRATROPIUM-ALBUTEROL 3 ML NEB INHALATION SCH ×7 (00:50→23:33)
[2019-02-09] MEDS: HYDROcodone/APAP 5-325MG 1 EACH TAB PO PRN (02:45)
[2019-02-09] MEDS: FUROSEMIDE 10 MG/ML 4 ML VIAL IV SCH ×3 (05:59→21:03)
[2019-02-09 06:00] LABS: Glucose,Whole Blood 223 mg/dL (75-99)
[2019-02-09] MEDS: INSULIN ASPART (NovoLOG) 100 UNIT/ML VIAL SQ SCH ×4 (06:32→21:03)
[2019-02-09 07:49] LABS: Calcium 8.6 mg/dL (8.4-10.2)
[2019-02-09] MEDS: ATORVASTATIN 80 MG TAB PO SCH (07:50)
[2019-02-09] MEDS: methylPREDNISolone SOD SUCCI 40 MG/ML 1 ML VIAL IV SCH ×2 (07:50→16:40)
[2019-02-09] MEDS: hydrALAZINE HCL 50 MG TAB PO SCH ×2 (07:50→16:40)
[2019-02-09] MEDS: HEPARIN SODIUM,PORCINE 5,000 UNIT/ML 1 ML VIAL SQ SCH ×2 (07:50→16:40)
[2019-02-09 07:57] LABS: Magnesium 2.7 mg/dL (1.6-2.3)
[2019-02-09] MEDS: BUDESONIDE 1 MG/2 ML NEBU INHALATION SCH ×2 (08:51→19:33)
[2019-02-09 11:26] VITALS: BMI 28.0
[2019-02-09 12:12] LABS: Glucose,Whole Blood 240 mg/dL (75-99)
[2019-02-09] MEDS: SODIUM CHLORIDE 0.9% 500 ML 500 ML IV SCH (16:35)
[2019-02-09 16:47] LABS: Glucose,Whole Blood 184 mg/dL (75-99)
--- NOTE | 2019-02-09 18:12 | PN ---
PROGRESS NOTE Patient is seen for followup for acute kidney injury. Patient was admitted with complaints of lower extremity edema and fluid overload. She is maintained on IV Lasix. She states she is feeling better. Her weight, however, is not significantly changed since admission. Serum creatinine is 2.48 today. It was at 2.7 on initial admission. On physical examination, blood pressure was 93/48 this morning, heart rate 92 per minute. Patient is afebrile. EXAMINATION OF THE HEART: S1 and S2. EXAMINATION OF LUNGS: Bilateral breath sounds are heard. Decreased breath sounds in the bases. ABDOMEN: Soft, non-tender. Examination of lower extremities shows edema 1+ bilaterally. Labs show sodium 138, potassium 6.0. Repeat potassium was 4.2 this morning. BUN 92, serum creatinine 2.48. ASSESSMENT: 1. Acute kidney injury, nonoliguric, mainly cardiorenal, somewhat improved. May continue with the IV Lasix. 2. Fluid overload, slowly improving. 3. Hyperkalemia on admission associated with acute kidney injury. 4. Osteoarthritis, right hip. Scheduled for right hip arthroplasty, but surgery on hold, given the heart failure and volume overload. PLAN: Continue with IV Lasix for now. Repeat labs in a.m. Avoid nephrotoxic agents. Ultrasound was unremarkable except for renal cysts. No contraindication to proceed with surgery from nephrology standpoint. MMODL / IJN: [id number] /
--- NOTE | 2019-02-09 19:09 | PN ---
PROGRESS NOTE This patient was supposed to have a hip surgery yesterday, but she was found to be in heart failure and so the surgery was canceled. The patient has a significant worsening of the renal failure. Creatinine today is 2.48 and BUN is 92. First and second heart sounds are normal. Lungs examination reveals bilateral basal rales. Chest x-ray suggestive of congestive cardiac failure. The patient's ultrasound of the abdomen does not show any evidence of hydronephrosis. We will continue the patient on the IV diuretics at present. Discussed the patient's condition with the patient's daughter. At present she is considered high risk for any surgical intervention. We may have to wait to 3 weeks to stabilize our heart failure and the renal functions. MMODL / IJN: [id number] /
[2019-02-09 20:43] LABS: Glucose,Whole Blood 245 mg/dL (75-99)
--- NOTE | 2019-02-09 22:55 | PN ---
PROGRESS NOTE DATE OF SERVICE: 02/09/2019 PRESENTING COMPLAINT: Short of breath. INTERVAL HISTORY: Patient admitted with CHF exacerbation, COPD exacerbation and acute hypoxic respiratory failure. Breathing is a bit better. Did tolerate some diet. Edema has gone down. Patient is also in acute renal failure from cardiorenal syndrome. REVIEW OF SYSTEMS: Done for constitutional, cardiovascular, GI, pulmonary; relevant findings as above. CURRENT MEDICATIONS: Reviewed. They include IV Lasix 40 mg q.8, bronchodilators and IV Solu-Medrol. PHYSICAL EXAMINATION: Temperature 97.8, pulse 53, respiration 18, blood pressure 102/58, pulse ox 96% on 3 L. GENERAL APPEARANCE: Sitting up, awake. Tired. EYES: Pupils equal. Conjunctivae normal. NECK: JVD unable to assess. Mass not palpable. RESPIRATORY: Effort increased. LUNGS: Decreased crackles. Wheezing present. CARDIOVASCULAR: Heart sounds irregular. Decreased edema. ABDOMEN: Soft, non-tender. Liver and spleen not palpable. PSYCHIATRY: Alert and oriented x3. Mood and affect normal. INVESTIGATIONS: Potassium was 6 and repeat was 4.2. BUN 92, creatinine 2.48. ASSESSMENT: 1. Acute congestive heart failure exacerbation; ejection fraction not known. 2. Acute chronic obstructive pulmonary disease exacerbation in a current smoker, slow to respond. 3. Chronic nicotine dependence. Patient is an active cigarette smoker. 4. Coronary artery disease with prior history of stent. 5. Essential hypertension. 6. Acute hypoxic respiratory failure; combination of chronic obstructive pulmonary disease and congestive heart failure. 7. Hyperkalemia in the setting of acute renal failure, recurrent. 8. Acute renal failure, probably cardiorenal syndrome. 9. Metabolic acid due to renal failure. Will continue patient on IV Lasix. We will keep a very close eye on patient's renal function. Again care was discussed the patient and family at the bedside. Surgery will have to be held off for a short time. In the meantime, continue with bronchodilators, steroids. Repeat electrolytes. MMODL / IJN: [id number] /
[2019-02-10] MEDS: methylPREDNISolone SOD SUCCI 40 MG/ML 1 ML VIAL IV SCH ×3 (00:01→16:47)
[2019-02-10] MEDS: HEPARIN SODIUM,PORCINE 5,000 UNIT/ML 1 ML VIAL SQ SCH ×3 (00:01→16:47)
[2019-02-10] MEDS: hydrALAZINE HCL 50 MG TAB PO SCH ×2 (00:02→07:43)
[2019-02-10] MEDS: IPRATROPIUM-ALBUTEROL 3 ML NEB INHALATION SCH ×5 (04:22→21:03)
[2019-02-10 06:06] LABS: Glucose,Whole Blood 230 mg/dL (75-99)
[2019-02-10] MEDS: FUROSEMIDE 10 MG/ML 4 ML VIAL IV SCH (06:15)
[2019-02-10] MEDS: INSULIN ASPART (NovoLOG) 100 UNIT/ML VIAL SQ SCH ×4 (06:16→21:38)
--- NOTE | 2019-02-10 06:33 | HP ---
HISTORY AND PHYSICAL ADDENDUM TO HISTORY AND PHYSICAL DATE OF SERVICE: 02/08/2019 PHYSICAL EXAMINATION: On examination, temperature 98.1, pulse 90, respiration 20, blood pressure 139/77, pulse ox 94% on 5 L. GENERAL APPEARANCE: Sitting up, tired, short of breath. EYES: Pupils equal. Conjunctivae normal. NECK: JVD possibly raised. Mass not palpable. RESPIRATORY: Effort increased. LUNGS: Decreased breath sounds. Some crackles, wheezing. CARDIOVASCULAR: First and second sounds . Edema present. ABDOMEN: Distended, soft. Liver and spleen not palpable. LYMPHATIC: No lymph nodes palpable in the neck and axilla. PSYCHIATRY: Alert and oriented x3. Mood and affect anxious appearing. MUSCULOSKELETAL: Evidence of osteoarthritis especially in the hands and knees. MMODL / IJN: [id number] /
[2019-02-10] MEDS: ATORVASTATIN 80 MG TAB PO SCH (07:43)
[2019-02-10] MEDS: BUDESONIDE 1 MG/2 ML NEBU INHALATION SCH ×2 (08:35→21:12)
--- NOTE | 2019-02-10 09:53 | XR ---
EXAMINATION TYPE: XR chest 2V DATE OF EXAM: 02/10/2019 COMPARISON: 02/07/2019 INDICATION: CHF TECHNIQUE: Frontal and lateral views of the chest are obtained. FINDINGS: The heart size is normal. The pulmonary vasculature is normal. Mild right lower lobe infiltrate is present. This is increasing. There is a small to moderate left pl eural effusion which appears stable.. IMPRESSION: 1. Stable small to moderate left pleural effusion. 2. Mild increasing infiltrate at the right base. Correlate for atelectasis or pneumonia. Atypical pul monary edema could be considered.
--- NOTE | 2019-02-10 09:58 | P.PN ---
Progress Note - Text Progress Note Date: 02/10/19 Patient is evaluated at bedside, her is present with her in the room. She was actually working with physical therapy when I came in. She continues to ambulate with the walker. Pain with regards to right hip is controlled at this time. After reviewing notes from the multiple medical specialists, patient is not medically cleared for right hip surgery at this time. I had the discussion with the patient today regarding rescheduling the right hip surgery when she is cleared by flanging roll operator. Patient is in good understanding. Patient will follow-up in the outpatient setting in the next few weeks
--- NOTE | 2019-02-10 11:07 | ECHOF ---
Referral Reason:chf MEASUREMENTS -------- HEIGHT: 157.5 cm WEIGHT: 69.4 kg BP: RVIDd: 3.2 cm (< 3.3) IVSd: 1.4 cm (0.6 - 1.1) LVIDd: 3.2 cm (3.9 - 5.3) LVPWd: 1.4 cm (0.6 - 1.1) IVSs: 1.7 cm LVIDs: 1.5 cm LVPWs: 2.0 cm Ao Diam: 2.9 cm (2.0 - 3.7) AV Cusp: 1.7 cm (1.5 - 2.6) LA Diam: 3.2 cm (2.7 - 3.8) MV EXCURSION: 9.024 mm (> 18.000) MV EF SLOPE: 39 mm/s (70 - 150) EPSS: 0.5 cm MV E Anand: 1.09 m/s MV DecT: 174 ms MV A Anand: 1.74 m/s MV E/A Ratio: 0.63 AV maxP.62 mmHg AV meanP.49 mmHg RAP: 5.00 mmHg RVSP: 42.70 mmHg FINDINGS -------- Sinus rhythm. This was a technically good study. The cavity size is decreased. There is moderate concentric left ventricular hypertrophy. Overall left ventricular systolic function is normal with, an EF between 65 - 70 %. Heart appears hyperdyna charli and LVH causing the gradients across the aortic valve and lvot to be high. The right ventricle is normal in size. The left atrial size is normal. The right atrial size is normal. Interatrial and interventricular septum intact. Aortic valve is trileaflet and is mildly thickened. Peak/mean gradient across the Aortic Valve is 2 8.62mmHg / 15.49mmHg. The mitral valve leaflets are mildly thickened. Mild mitral annular calcification present. Mild m itral regurgitation is present. Mild tricuspid regurgitation present. There is mild pulmonary hypertension. The right ventricular systolic pressure, as measured by Doppler, is 42.70mmHg. There is no pulmonic regurgitation present. The aortic root size is normal. Normal inferior vena cava with normal inspiratory collapse consistent with estimated right atrial pre ssure of 5 mmHg. There is no pericardial effusion. CONCLUSIONS -------- 1. Sinus rhythm. 2. This was a technically good study. 3. The cavity size is decreased. 4. There is moderate concentric left ventricular hypertrophy. 5. Overall left ventricular systolic function is normal with, an EF between 65 - 70 %. 6. Heart appears hyperdynamic and LVH causing the gradients across the aortic valve and lvot to be hi gh. 7. The right ventricle is normal in size. 8. The left atrial size is normal. 9. The right atrial size is normal. 10. Interatrial and interventricular septum intact. 11. Aortic valve is trileaflet and is mildly thickened. 12. Peak/mean gradient across the Aortic Valve is 28.62mmHg / 15.49mmHg. 13. The mitral valve leaflets are mildly thickened. 14. Mild mitral annular calcification present. 15. Mild mitral regurgitation is present. 16. Mild tricuspid regurgitation present. 17. There is mild pulmonary hypertension. 18. The right ventricular systolic pressure, as measured by Doppler, is 42.70mmHg. 19. There is no pulmonic regurgitation present. 20. The aortic root size is normal. 21. Normal inferior vena cava with normal inspiratory collapse consistent with estimated right atrial pressure of 5 mmHg. 22. There is no pericardial effusion. TRIMMING MACHINE SET UP OPERATOR: Teri David RDCS
--- NOTE | 2019-02-10 11:11 | P.PN ---
Subjective Patient is seen in follow-up for acute kidney injury. Patient's creatinine in 2014 was in the range of 0.6-0.8. In August 2016 it was 1.19. No other records available. Patient presented to the hospital with lower extremity edema which is improving. She is maintained on IV Lasix 40 mg 3 times daily. Urine output has been good. Vital signs are stable. General: The patient appeared well nourished and normally developed. HEENT: Head exam is unremarkable. Neck is without jugular venous distension. LUNGS: Breath sounds decreased. HEART: Rate and Rhythm are regular. First and second heart sounds normal. No murmurs, rubs or gallops. ABDOMEN: Abdominal exam reveals normal bowel sounds. Non-tender and non- distended. No evidence of peritonitis. EXTREMITITES: Trace edema. Objective - Vital Signs Vital signs: Vital Signs Temp 97.8 F 02/10/19 07:47 Pulse 92 02/10/19 08:56 Resp 18 02/10/19 07:47 BP 104/58 02/10/19 07:47 Pulse Ox 96 02/10/19 07:47 Intake & Output 02/09/19 02/10/19 02/10/19 18:59 06:59 18:59 Intake Total 480 260 240 Output Total 900 1550 500 Balance -420 -1290 -260 Weight 69.7 kg 67.6 kg Intake: Intake, IV Titration 60 Amount Sodium Chloride 0.9% 500 60 ml 500 ml @ 20 mls/hr IV .Q24H [facility] Rx#:[id number] Oral 480 200 240 Output: Urine 900 1550 500 Other: # Voids 1 1 # Bowel Movements 1 - Labs CBC & Chem 7: 02/07/19 11:45 02/09/19 12:31 Labs: Abnormal Lab Results - Last 24 Hours (Table) 02/09/19 02/09/19 02/09/19 Range/Units 11:43 16:44 20:42 POC Glucose (mg/dL) 240 H 184 H 245 H (75-99) mg/dL 02/10/19 Range/Units 06:05 POC Glucose (mg/dL) 230 H (75-99) mg/dL Assessment and Plan Plan: Assessment: 1. Acute kidney injury mostly prerenal secondary to cardiorenal syndrome. Creatinine 2.78 on admission and was 2.48 as of yesterday. Baseline creatinine in the range of 0.6-0.8 from 2015. Trace proteinuria on UA. No hydronephrosis noted on renal ultrasound. 2. Volume overload. Improving with diuresis. 3. Hyperkalemia secondary to acute kidney injury, metabolic acidosis and [place]. Improved with medical management. 4. Osteoarthritis of the right hip. Surgery delayed for now. 5. Benign hypertension. 6. Metabolic acidosis secondary to acute kidney injury. Plan: I will change Lasix to 40 mg orally twice daily. Avoid nephrotoxins. ECHO revealed preserved EF. Follow-up morning labs. Patient is cleared for right hip arthroplasty from nephrology standpoint.
[2019-02-10 11:54] LABS: Glucose,Whole Blood 162 mg/dL (75-99)
[2019-02-10] MEDS: METOPROLOL SUCCINATE (ER) 25 MG TAB.ER.24H PO SCH (12:04)
[2019-02-10 12:06] LABS: Magnesium 2.1 mg/dL (1.6-2.3)
[2019-02-10] MEDS ORDERED: FUROSEMIDE 40 MG TAB PO SCH (16:00)
[2019-02-10] MEDS: SODIUM CHLORIDE 0.9% 500 ML 500 ML IV SCH (16:28)
[2019-02-10 16:58] LABS: Glucose,Whole Blood 205 mg/dL (75-99)
[2019-02-10 21:04] LABS: Glucose,Whole Blood 160 mg/dL (75-99)
--- NOTE | 2019-02-10 21:13 | PN ---
PROGRESS NOTE This patient was supposed to have a hip surgery and the surgery was canceled because patient was found to be in heart failure. She is doing better. Her breathing is slightly improved. Chest x-ray still shows some congestive changes. The patient was also acute on chronic renal failure. Her creatinine is now 2.06, BUN is 85. First and second heart sounds are normal. Lungs reveal bilateral rhonchi. The patient's echocardiogram shows a hyperdynamic circulation with some increased LVOT gradient. PLAN: We will continue the patient on Lasix 40 mg b.i.d., discontinue hydralazine and start the patient on Lopressor 25 mg daily. We will gradually increase the dose of Toprol as necessary. We would like to get the patient stabilized for 2-3 weeks from heart failure point of view and after the patient remains euvolemic, the patient can undergo surgery. MARLO / JERI: [id number] /
[2019-02-10] MEDS: guaiFENesin 600 MG TABLET.ER PO SCH (21:38)
[2019-02-10] MEDS: FUROSEMIDE 100 MG in SODIUM CHLORIDE 0.9% 90 ML IV SCH (21:56)
--- NOTE | 2019-02-10 23:35 | PN ---
PROGRESS NOTE DATE OF SERVICE: 02/10/2019. PRESENTING COMPLAINT: Short of breath, cough. INTERVAL HISTORY: Patient with CHF exacerbation, COPD exacerbation, acute hypoxic respiratory failure. Breathing is better. Still congested. Edema has gone down. Short of breath at rest. The patient also felt to have a cardiorenal syndrome. REVIEW OF SYSTEMS: Done for constitutional, cardiovascular, GI, pulmonary; relevant findings as above. CURRENT MEDICATIONS: Reviewed that include IV Solu-Medrol, bronchodilator, switched to oral Lasix earlier today. PHYSICAL EXAMINATION: Temperature 97.7, pulse 101, respirations 22, blood pressure 108/55, pulse ox 95% on 2 L. GENERAL APPEARANCE: Sitting up, short of breath. EYES: Pupils equal. Conjunctivae normal. NECK: JVD possibly raised. Mass not palpable. Respiratory effort increased. LUNGS: Crackles are present. Wheezing present. CARDIOVASCULAR: Heart sounds irregular. Edema present. ABDOMEN: Soft, nontender. Liver and spleen not palpable. PSYCHIATRY: Alert, oriented x3. Mood and affect normal. INVESTIGATIONS: Potassium 4, BUN 85, creatinine 2.06. Accu-Cheks are noted. Chest x-ray film personally reviewed by me, shows left pleural effusion, pulmonary edema. ASSESSMENT: 1. Acute on chronic congestive heart failure exacerbation from diastolic dysfunction, EF 65 to 70 percent. 2. Hypertensive heart disease. 3. Acute chronic obstructive pulmonary disease exacerbation in a current smoker, slow to respond. 4. Chronic nicotine dependence patient is a cigarette smoker. 5. Coronary artery disease, prior history of stent. 6. Essential hypertension. 7. Acute hypoxic respiratory failure from chronic obstructive pulmonary disease and congestive heart failure. 8. Hyperkalemia in the setting of acute renal failure. 9. Acute renal failure, probably from cardiorenal syndrome. 10.Metabolic acidosis due to renal failure. PLAN: The patient still looks to be in fluid overload, especially symptomatically. At this point we will give the patient a Lasix drip overnight. We will also add Mucinex. Care was discussed with the patient and daughter at the bedside. Will follow. MMODL / IJN: [id number] /
[2019-02-11] MEDS: methylPREDNISolone SOD SUCCI 40 MG/ML 1 ML VIAL IV SCH ×3 (00:12→17:45)
[2019-02-11] MEDS: IPRATROPIUM-ALBUTEROL 3 ML NEB INHALATION SCH ×6 (00:26→19:55)
[2019-02-11] MEDS: FUROSEMIDE 100 MG in SODIUM CHLORIDE 0.9% 90 ML IV SCH (04:27)
[2019-02-11 06:14] LABS: Glucose,Whole Blood 232 mg/dL (75-99)
[2019-02-11] MEDS: INSULIN ASPART (NovoLOG) 100 UNIT/ML VIAL SQ SCH ×4 (06:26→20:40)
[2019-02-11 06:43] LABS: Calcium 8.1 mg/dL (8.4-10.2); Potassium 3.4 mmol/L (3.5-5.1)
[2019-02-11] MEDS: ATORVASTATIN 80 MG TAB PO SCH (08:31)
[2019-02-11] MEDS: guaiFENesin 600 MG TABLET.ER PO SCH ×2 (08:32→20:40)
[2019-02-11] MEDS: METOPROLOL SUCCINATE (ER) 25 MG TAB.ER.24H PO SCH (08:32)
[2019-02-11] MEDS: BUDESONIDE 1 MG/2 ML NEBU INHALATION SCH ×2 (08:54→19:56)
[2019-02-11] MEDS ORDERED: ENOXAPARIN 40 MG/0.4 ML SYRINGE SQ SCH (09:00)
[2019-02-11] MEDS ORDERED: POTASSIUM CHLORIDE ER 20 MEQ TAB.ER PO STA (09:25)
--- NOTE | 2019-02-11 09:33 | P.PN ---
Subjective Patient is seen in follow-up for acute kidney injury. Patient's creatinine in 2014 was in the range of 0.6-0.8. In August 2016 it was 1.19. No other records available. Patient presented to the hospital with lower extremity edema which is improving. Patient was receiving IV Lasix and was started on Lasix drip yesterday. Urine output has been good. Patient feels better. Renal function is worse which is due to diuresis. Creatinine 2.21 today. Vital signs are stable. General: The patient appeared well nourished and normally developed. HEENT: Head exam is unremarkable. Neck is without jugular venous distension. LUNGS: Breath sounds decreased. HEART: Rate and Rhythm are regular. First and second heart sounds normal. No murmurs, rubs or gallops. ABDOMEN: Abdominal exam reveals normal bowel sounds. Non-tender and non- distended. No evidence of peritonitis. EXTREMITITES: Trace edema. Objective - Vital Signs Vital signs: Vital Signs Temp 97.9 F 02/11/19 04:00 Pulse 96 02/11/19 09:14 Resp 18 02/11/19 04:00 BP 98/64 02/11/19 04:00 Pulse Ox 92 L 02/11/19 04:00 Intake & Output 02/10/19 02/11/19 02/11/19 18:59 06:59 18:59 Intake Total 960 65.167 Output Total 1300 600 Balance -340 -534.833 Weight 66.7 kg Intake: Intake, IV Titration 65.167 Amount Furosemide 100 mg In 65.167 Sodium Chloride 0.9% 90 ml @ 10 MG/HR 10 mls/hr IV .Q10H PAMELA Rx#: [id number] Oral 960 Output: Urine 1300 600 Other: # Voids 1 - Labs CBC & Chem 7: 02/07/19 11:45 02/11/19 05:44 Labs: Abnormal Lab Results - Last 24 Hours (Table) 02/10/19 02/10/19 02/10/19 Range/Units 11:29 11:32 16:43 Potassium (3.5-5.1) mmol/L BUN 85 H (7-17) mg/dL Creatinine 2.06 H (0.52-1.04) mg/dL Glucose 146 H (74-99) mg/dL POC Glucose (mg/dL) 162 H 205 H (75-99) mg/dL Calcium 8.0 L (8.4-10.2) mg/dL 02/10/19 02/11/19 02/11/19 Range/Units 21:01 05:44 06:09 Potassium 3.4 L (3.5-5.1) mmol/L BUN 87 H (7-17) mg/dL Creatinine 2.21 H (0.52-1.04) mg/dL Glucose 225 H (74-99) mg/dL POC Glucose (mg/dL) 160 H 232 H (75-99) mg/dL Calcium 8.1 L (8.4-10.2) mg/dL Assessment and Plan Plan: Assessment: 1. Acute kidney injury mostly prerenal secondary to cardiorenal syndrome. Creatinine 2.78 on admission and was 2.06 as of yesterday. It is 2.21 today due to aggressive diuresis. Baseline creatinine in the range of 0.6-0.8 from 2015. Trace proteinuria on UA. No hydronephrosis noted on renal ultrasound. 2. Volume overload. Improving with diuresis. 3. Hyperkalemia secondary to acute kidney injury, metabolic acidosis and losartan. Improved with medical management. Now hypokalemic from diuresis. 4. Osteoarthritis of the right hip. Surgery delayed for now. 5. Benign hypertension. Blood pressures on the lower side. 6. Metabolic acidosis secondary to acute kidney injury. Better. Plan: I will change Lasix to 40 mg IV twice daily. She can be transitioned over to 40 mg orally twice daily upon discharge. Avoid nephrotoxins. ECHO revealed preserved EF. Replace potassium. 40 mEq today. Add maintenance potassium supplementation. Patient will need a BMP and a mag rechecked 2-3 days postdischarge and follow up outpatient in the next 1-2 weeks.
[2019-02-11 12:09] LABS: Glucose,Whole Blood 163 mg/dL (75-99)
[2019-02-11] MEDS: FUROSEMIDE 10 MG/ML 4 ML VIAL IV SCH ×2 (12:30→20:40)
--- NOTE | 2019-02-11 14:54 | PN ---
PROGRESS NOTE This patient is admitted with respiratory distress secondary to acute exacerbation of chronic congestive heart failure as well as may have underlying some bronchospasm. Patient is feeling better. She is not in any respiratory distress. Blood pressure is 110/80 mmHg. First and second heart sounds are normal. Lungs reveal bilateral scattered wheezes. Patient's creatinine is 2.2. We will repeat the chest x- ray tomorrow. Continue IV Lasix for 24 hours and switch to the p.o. Lasix. Discussed the condition with daughter that the patient should be continued on the diuretics and bronchodilators for a couple of weeks and can be evaluated by Dr. Clayton as an outpatient and after her condition is stable, she can be considered for orthopedic surgery. MMODL / IJN: [id number] /
[2019-02-11 16:50] LABS: Glucose,Whole Blood 205 mg/dL (75-99)
[2019-02-11] MEDS: SODIUM CHLORIDE 0.9% 500 ML 500 ML IV SCH (17:45)
[2019-02-11 20:37] LABS: Glucose,Whole Blood 222 mg/dL (75-99)
[2019-02-11] MEDS: predniSONE 20 MG TAB PO SCH (20:39)
--- NOTE | 2019-02-11 21:24 | PN ---
PROGRESS NOTE DATE OF SERVICE: 02/11/2019 PRESENTING COMPLAINT: Short of breath, cough. INTERVAL HISTORY: Patient with CHF exacerbation, COPD exacerbation, acute hypoxic respiratory failure. I did put the patient on Lasix drip overnight. She put out close to 1000 mL. Edema has further gone down. Breathing is getting better. REVIEW OF SYSTEMS: Done for constitutional, cardiovascular, GI, pulmonary, relevant findings as above. CURRENT MEDICATIONS: Reviewed that include DuoNeb, switched over to IV Lasix 40 q.12h with Cardiology, IV Solu-Medrol. PHYSICAL EXAMINATION: VITAL SIGNS: Temperature 98.2, pulse 97, respiratory rate 16, blood pressure 109/75, pulse 91 percent on 3 L. GENERAL APPEARANCE: Sitting up, less short of breath. EYES: Pupils are equal. Conjunctivae normal. NECK: JVD raised. Mass not palpable. RESPIRATORY: Effort increased. LUNGS: Decreased breath sounds. Decreased crackle. Less wheezing. CARDIOVASCULAR: Heart sounds irregular. Decreased edema. ABDOMEN: Soft, nontender. Liver and spleen not palpable. PSYCHIATRY: Alert and oriented times three. Mood and affect normal. INVESTIGATIONS: Potassium 3.4, BUN 87, creatinine 2.21. ASSESSMENT: 1. Acute on chronic congestive heart failure exacerbation from diastolic dysfunction. EF 65-70 percent, improving. 2. Hypertensive heart disease. 3. Acute chronic obstructive pulmonary disease exacerbation in a current smoker. 4. Chronic nicotine dependence, patient is a cigarette smoker. 5. Coronary artery disease, prior history of stent. 6. Essential hypertension. 7. Acute hypoxic respiratory failure from chronic chronic obstructive pulmonary disease and congestive heart failure. 8. Hyperkalemia in a setting of acute renal failure. 9. Acute renal failure probably from cardiorenal syndrome. 10.Metabolic acidosis due to renal failure. PLAN: Care was discussed with the patient and daughter at the bedside. Dr. Garcia has switched the patient over to Lasix 40 q.12h. We will switch the patient to oral prednisone in the morning and expect the patient to be in the hospital for another day or 2. MMODL / IJN: [id number] /
[2019-02-12] MEDS: IPRATROPIUM-ALBUTEROL 3 ML NEB INHALATION SCH ×7 (00:47→23:55)
[2019-02-12 06:25] LABS: Glucose,Whole Blood 237 mg/dL (75-99)
--- NOTE | 2019-02-12 06:52 | XR ---
EXAMINATION TYPE: XR chest 2V DATE OF EXAM: 02/12/2019 HISTORY: f/u chf. REFERENCE: Previous study dated 02/10/2019. FINDINGS: Lung volumes are prominent. The heart is not enlarged. There is left basilar airspace disea se. There is a small left effusion. This is improved from previous. IMPRESSION: 1. COPD. 2. IMPROVING LEFT BASILAR AIRSPACE DISEASE. 3. SMALL LEFT EFFUSION.
[2019-02-12 07:01] LABS: Calcium 7.8 mg/dL (8.4-10.2); Magnesium 1.9 mg/dL (1.6-2.3); Potassium 3.9 mmol/L (3.5-5.1)
[2019-02-12] MEDS: INSULIN ASPART (NovoLOG) 100 UNIT/ML VIAL SQ SCH ×4 (07:09→20:46)
[2019-02-12] MEDS: POTASSIUM CHLORIDE ER 10 MEQ TAB.ER.PRT PO SCH (07:57)
[2019-02-12] MEDS: predniSONE 20 MG TAB PO SCH (07:57)
[2019-02-12] MEDS: METOPROLOL SUCCINATE (ER) 25 MG TAB.ER.24H PO SCH (07:58)
[2019-02-12] MEDS: guaiFENesin 600 MG TABLET.ER PO SCH ×2 (07:58→20:46)
[2019-02-12] MEDS: ENOXAPARIN 30 MG/0.3 ML SYRINGE SQ SCH (07:58)
[2019-02-12] MEDS: ATORVASTATIN 80 MG TAB PO SCH (07:58)
[2019-02-12] MEDS: FUROSEMIDE 10 MG/ML 4 ML VIAL IV SCH (07:58)
[2019-02-12] MEDS: BUDESONIDE 1 MG/2 ML NEBU INHALATION SCH ×2 (09:13→18:42)
--- NOTE | 2019-02-12 10:09 | P.PN ---
Subjective Patient is seen in follow-up for acute kidney injury. Patient's creatinine in 2014 was in the range of 0.6-0.8. In August 2016 it was 1.19. No other records available. Patient presented to the hospital with lower extremity edema which is improving. Currently on IV Lasix 40 mg twice daily. Urine output has been good. Patient feels better. Renal function is better. Vital signs are stable. General: The patient appeared well nourished and normally developed. HEENT: Head exam is unremarkable. Neck is without jugular venous distension. LUNGS: Breath sounds decreased. HEART: Rate and Rhythm are regular. First and second heart sounds normal. No murmurs, rubs or gallops. ABDOMEN: Abdominal exam reveals normal bowel sounds. Non-tender and non- distended. No evidence of peritonitis. EXTREMITITES: No edema. Objective - Vital Signs Vital signs: Vital Signs Temp 98.2 F 02/12/19 07:50 Pulse 99 02/12/19 07:50 Resp 20 02/12/19 07:50 BP 107/69 02/12/19 07:50 Pulse Ox 94 L 02/12/19 07:50 Intake & Output 02/11/19 02/12/19 02/12/19 18:59 06:59 18:59 Intake Total 720 240 Output Total 1800 Balance -1080 240 Weight 66.7 kg 65.4 kg Intake: Oral 720 240 Output: Urine 1800 Other: Voiding Method Bedside Commode Bedside Commode # Voids 3 # Bowel Movements 1 - Labs CBC & Chem 7: 02/07/19 11:45 02/12/19 06:26 Labs: Abnormal Lab Results - Last 24 Hours (Table) 02/11/19 02/11/19 02/11/19 Range/Units 11:49 16:47 20:35 Chloride (98-107) mmol/L BUN (7-17) mg/dL Creatinine (0.52-1.04) mg/dL Glucose (74-99) mg/dL POC Glucose (mg/dL) 163 H 205 H 222 H (75-99) mg/dL Calcium (8.4-10.2) mg/dL 02/12/19 02/12/19 Range/Units 06:24 06:26 Chloride 97 L (98-107) mmol/L BUN 97 H (7-17) mg/dL Creatinine 2.05 H (0.52-1.04) mg/dL Glucose 228 H (74-99) mg/dL POC Glucose (mg/dL) 237 H (75-99) mg/dL Calcium 7.8 L (8.4-10.2) mg/dL Assessment and Plan Plan: Assessment: 1. Acute kidney injury mostly prerenal secondary to cardiorenal syndrome. Renal function a little better today. Creatinine 2.05. Baseline creatinine in the range of 0.6-0.8 from 2015. Trace proteinuria on UA. No hydronephrosis noted on renal ultrasound. 2. Volume overload. Improving with diuresis. 3. Hyperkalemia secondary to acute kidney injury, metabolic acidosis and losartan. Improved with medical management. Patient then became hypokalemic from diuresis which was replaced. 4. Osteoarthritis of the right hip. Surgery delayed for now. 5. Benign hypertension. Stable. 6. Metabolic acidosis secondary to acute kidney injury. Better. Plan: I will change Lasix to 40 mg orally twice daily. Avoid nephrotoxins. ECHO revealed preserved EF. Patient will need a BMP and a mag rechecked 2-3 days postdischarge and follow up outpatient in the next 1-2 weeks.
[2019-02-12 11:49] LABS: Glucose,Whole Blood 138 mg/dL (75-99)
--- NOTE | 2019-02-12 14:00 | P.PN ---
Subjective Progress Note Date: 02/12/19 This is a 79-year-old female with history of hypertension, hyperlipidemia, coronary artery disease with prior stent placement, COPD, she has also history of right hip osteoarthritis with significant discomfort on a regular basis. She was scheduled to undergo a right direct anterior total hip arthroplasty, it was determined in the preoperative area that the patient was in questionable heart failure therefore the surgery was canceled and she was admitted to the cardiac unit where we have seen her today in consultation. According to the patient, she's been having this noted swelling for quite some time, and it was felt that this was from her arthritis. He has also not been eating and drinking enough at home, because she has not wanted to have to move much to go to the bathroom because of the pain in her hip. Her blood pressure on arrival here 132/60 with a heart rate of 90, 92% on 2 L of oxygen. Blood pressure this morning 112/50 with a heart rate of 90, 95% on 5 L of oxygen. Ch est x-ray showed congestive heart failure with associated left-sided pleural effusion and associated atelectasis versus edema. EKG showed normal sinus rhythm with incomplete right bundle branch block pattern and nonspecific ST-T wave changes. Ultrasound of the abdomen and bladder showed multiple simple appearing left renal cysts. Left pleural effusion noted. White blood cell count 10.9, hemoglobin 11.0, platelet count 342. Sodium 138, potassium 4.9, BUN 85 and 2.5 creatinine today. Yesterday her BUN was 86 and creatinine was 2.7. Patient's creatinine in 2014 was in the range of 0.6-0.8, in August 2016 was 1.1. BNP level49,300. Troponins 0.14, 0.14, 0.13. The patient was initiated on IV Lasix 40 mg every 8 hourly. She is also on Cozaar at home which we will discontinue at this time and start the patient on hydralazine. It was explained to the patient and her family in detail, that we would need to postpone her surgery until she is medically stable. We will obtain an echocardiogram with Doppler study, continue to laura. 02/12/2019 She was seen and examined this morning, she had continued on IV Lasix until this morning, nephrology has now changed her over to oral diuretics today. Blood pressure 122/70 with a heart rate of 90, 94% on 2 L of oxygen. Sodium 137, po tassium 3.9, and BUN 97 and creatinine 2.0, magnesium today is 1.9. Objective - Vital Signs Vital signs: Vital Signs Temp 98.0 F 02/12/19 11:54 Pulse 91 02/12/19 11:54 Resp 20 02/12/19 11:54 BP 123/71 02/12/19 11:54 Pulse Ox 94 L 02/12/19 11:54 Intake & Output 02/11/19 02/12/19 02/12/19 18:59 06:59 18:59 Intake Total 720 240 240 Output Total 1800 Balance -1080 240 240 Weight 66.7 kg 65.4 kg Intake: Oral 720 240 240 Output: Urine 1800 Other: Voiding Method Bedside Commode Bedside Commode # Voids 3 1 # Bowel Movements 1 1 - Exam PHYSICAL EXAMINATION: GENERAL: 79-year-old female in no acute distress at the time of my examination HEENT: Head is atraumatic, normocephalic. Pupils equal, round. Sclera anicteric. Conjunctiva are clear. Mucous membranes of the mouth are moist. Neck is supple. There is elevated jugular venous pressure. No carotid bruit is heard. HEART EXAMINATION: Heart S1 S2 1 systolic murmur is heard CHEST EXAMINATION: Lungs mild diminished air entry to bilateral bases ABDOMEN: Soft, nontender. Bowel sounds are heard. No organomegaly noted. EXTREMITIES: 2+ peripheral pulses with trace evidence of peripheral edema and no calf tenderness noted. NEUROLOGIC patient is awake, alert and oriented 3 . . - Labs CBC & Chem 7: 02/07/19 11:45 02/12/19 06:26 Labs: Abnormal Lab Results - Last 24 Hours (Table) 02/11/19 02/11/19 02/12/19 Range/Units 16:47 20:35 06:24 Chloride (98-107) mmol/L BUN (7-17) mg/dL Creatinine (0.52-1.04) mg/dL Glucose (74-99) mg/dL POC Glucose (mg/dL) 205 H 222 H 237 H (75-99) mg/dL Calcium (8.4-10.2) mg/dL 02/12/19 02/12/19 Range/Units 06:26 11:43 Chloride 97 L (98-107) mmol/L BUN 97 H (7-17) mg/dL Creatinine 2.05 H (0.52-1.04) mg/dL Glucose 228 H (74-99) mg/dL POC Glucose (mg/dL) 138 H (75-99) mg/dL Calcium 7.8 L (8.4-10.2) mg/dL Assessment and Plan Plan: Assessment and plan #1 congestive cardiac failure, LV function unknown #2 acute kidney injury #3 hyperkalemia #4 hypertension #5 hyperlipidemia #6 coronary artery disease with prior stent placement #7 osteoarthritis of the right hip, surgery delayed for now Plan From cardiology's perspective, patient may be able to be discharged home once cleared by primary and nephrology. Patient needs to be on diuretics and bronchodilators for a couple of weeks and then evaluated by Dr. Park as an outpatient, after her condition is stable she can then be considered for o rthopedic surgery We will make her a follow-up appointment in the office post discharge. DNP note has been reviewed, I agree with a documented findings and plan of care. Patient was seen and examined.
[2019-02-12 17:11] LABS: Glucose,Whole Blood 277 mg/dL (75-99)
[2019-02-12] MEDS: FUROSEMIDE 40 MG TAB PO SCH (17:23)
[2019-02-12 20:10] LABS: Glucose,Whole Blood 216 mg/dL (75-99)
[2019-02-13] MEDS: IPRATROPIUM-ALBUTEROL 3 ML NEB INHALATION SCH ×4 (03:55→16:33)
[2019-02-13 07:49] LABS: Glucose,Whole Blood 116 mg/dL (75-99)
[2019-02-13] MEDS: INSULIN ASPART (NovoLOG) 100 UNIT/ML VIAL SQ SCH ×2 (07:51→12:34)
[2019-02-13] MEDS: BUDESONIDE 1 MG/2 ML NEBU INHALATION SCH (07:55)
[2019-02-13] MEDS: ATORVASTATIN 80 MG TAB PO SCH (08:32)
[2019-02-13] MEDS: guaiFENesin 600 MG TABLET.ER PO SCH (08:32)
[2019-02-13] MEDS: FUROSEMIDE 40 MG TAB PO SCH ×2 (08:33→16:03)
[2019-02-13] MEDS: ENOXAPARIN 30 MG/0.3 ML SYRINGE SQ SCH (08:33)
[2019-02-13] MEDS: METOPROLOL SUCCINATE (ER) 25 MG TAB.ER.24H PO SCH (08:33)
[2019-02-13] MEDS: predniSONE 20 MG TAB PO SCH (08:33)
[2019-02-13] MEDS: POTASSIUM CHLORIDE ER 10 MEQ TAB.ER.PRT PO SCH (08:33)
[2019-02-13] MEDS ORDERED: CALCIUM CARBONATE 500 MG CHEWABLE PO PRN (09:11)
[2019-02-13] MEDS: HYDROcodone/APAP 5-325MG 1 EACH TAB PO PRN (10:27)
--- NOTE | 2019-02-13 11:20 | P.PN ---
Subjective Patient is seen in follow-up for acute kidney injury. Patient's creatinine in 2014 was in the range of 0.6-0.8. In August 2016 it was 1.19. No other records available. Patient presented to the hospital with lower extremity edema which is improving. Currently on oral Lasix 40 mg twice daily. Urine output has been good. Patient feels better. Creatinine was down to 2.05 as of yesterday. Vital signs are stable. General: The patient appeared well nourished and normally developed. HEENT: Head exam is unremarkable. Neck is without jugular venous distension. LUNGS: Breath sounds decreased. HEART: Rate and Rhythm are regular. First and second heart sounds normal. No murmurs, rubs or gallops. ABDOMEN: Abdominal exam reveals normal bowel sounds. Non-tender and non- distended. No evidence of peritonitis. EXTREMITITES: No edema. Objective - Vital Signs Vital signs: Vital Signs Temp 98.5 F 02/13/19 07:28 Pulse 86 02/13/19 10:29 Resp 18 02/13/19 07:28 BP 195/75 02/13/19 10:29 Pulse Ox 96 02/13/19 10:29 Intake & Output 02/12/19 02/13/19 02/13/19 18:59 06:59 18:59 Intake Total 480 220 Output Total 400 Balance 80 220 Intake: Oral 480 220 Output: Urine 400 Other: Voiding Method Toilet Toilet Bedside Commode # Voids 1 1 # Bowel Movements 1 - Labs CBC & Chem 7: 02/07/19 11:45 02/12/19 06:26 Labs: Abnormal Lab Results - Last 24 Hours (Table) 02/12/19 02/12/19 02/12/19 Range/Units 11:43 16:53 20:08 POC Glucose (mg/dL) 138 H 277 H 216 H (75-99) mg/dL 02/13/19 Range/Units 07:29 POC Glucose (mg/dL) 116 H (75-99) mg/dL Assessment and Plan Plan: Assessment: 1. Acute kidney injury mostly prerenal secondary to cardiorenal syndrome. Renal function improved as of yesterday. Creatinine 2.05. Baseline creatinine in the range of 0.6-0.8 from 2014. Trace proteinuria on UA. No hydronephrosis noted on renal ultrasound. 2. Volume overload. Improved with diuresis. 3. Hyperkalemia secondary to acute kidney injury, metabolic acidosis and losartan. Improved with medical management. Patient then became hypokalemic from diuresis which was replaced. 4. Osteoarthritis of the right hip. Surgery delayed for now. 5. Benign hypertension. Stable. 6. Metabolic acidosis secondary to acute kidney injury. Better. Plan: Maintain Lasix 40 mg orally twice daily. Avoid nephrotoxins. ECHO revealed preserved EF. Patient will need a BMP and magnesium checked 2-3 days postdischarge and follow up outpatient in the next 1-2 weeks.
[2019-02-13 12:16] LABS: Calcium 8.2 mg/dL (8.4-10.2); Magnesium 1.9 mg/dL (1.6-2.3); Potassium 3.9 mmol/L (3.5-5.1)
[2019-02-13 12:18] LABS: Glucose,Whole Blood 141 mg/dL (75-99)
[2019-02-13 15:30] VITALS: BP 151/74; PULSE 89; RESP 17; TEMP 98.3
== END 2019-02-13 17:17 | disposition home or self-care (01) | DRG 291 ==
LOC: EC 12:06 → 3SCARD 15:07 → 4SSUR 02-12 23:04
PROVIDERS: ADMIT Hospitalist; ATTEND Hospitalist
DX: I13.0 Hypertensive heart and chronic kidney disease with heart failure and stage 1 through stage 4 chronic kidney disease, or unspecified chronic kidney disease (principal); J96.01 Acute respiratory failure with hypoxia; E87.2 Acidosis; J44.1 Chronic obstructive pulmonary disease with (acute) exacerbation; N17.9 Acute kidney failure, unspecified; I50.9 Heart failure, unspecified; E78.5 Hyperlipidemia, unspecified; E87.5 Hyperkalemia; E87.6 Hypokalemia; F17.210 Nicotine dependence, cigarettes, uncomplicated; I25.10 Atherosclerotic heart disease of native coronary artery without angina pectoris; I25.2 Old myocardial infarction; I45.10 Unspecified right bundle-branch block; M16.11 Unilateral primary osteoarthritis, right hip; N18.9 Chronic kidney disease, unspecified; N28.1 Cyst of kidney, acquired; T50.2X5A Adverse effect of carbonic-anhydrase inhibitors, benzothiadiazides and other diuretics, initial encounter; Z53.9 Procedure and treatment not carried out, unspecified reason; Z79.82 Long term (current) use of aspirin; Z79.899 Other long term (current) drug therapy; Z80.0 Family history of malignant neoplasm of digestive organs; Z90.711 Acquired absence of uterus with remaining cervical stump; Z95.5 Presence of coronary angioplasty implant and graft; Z98.42 Cataract extraction status, left eye; Z98.41 Cataract extraction status, right eye; Z99.3 Dependence on wheelchair
CPT/HCPCS: 36415; 71046; 76770; 80048; 80053; 81001; 83735; 83880; 84132; 84484; 85025; 85610; 85730; 86850; 86900; 86901; 93005; 93306; 94640; 94760; 96365; 96366; 96375; 96376; 99285

== ENCOUNTER 2019-03-02 10:06 | Inpatient (IN) | payer MEDICARE ==
--- NOTE | 2019-03-02 10:43 | ED ---
Abdominal Pain HPI - General Source: patient Mode of arrival: wheelchair Limitations: no limitations <Esau Chambers - Last Filed: 03/02/19 11:34> <Fidencio Spring - Last Filed: 03/02/19 12:41> - General Chief Complaint: Abdominal Pain Stated Complaint: lt sided pain Time Seen by Provider: 03/02/19 10:17 - History of Present Illness Initial Comments: Patient is 79-year-old female with history of heart failure and acute kidney failure presents to the emergency Department with her daughter for left sided abdominal pain. Patient reports she was scheduled to have a hip replacement surgery on February 07 which was delayed due to fluid retention secondary to heart failure. Patient reports she was admitted for one week for inpatient treatment on February 07. Patient was discharged with diuretics, steroids and placed on 2 L nasal cannula at home. Patient denies chest pain chest tightness but does report shortness of breath ever since she was admitted along with a cough. Patient reports left-sided flank pain that occurs only in the morning for approximately 1 hour and is colicky in nature. Patient reports the pain is intermittent throughout the day and is positional. Patient does report constipation for past few days. Patient does take narcotics for pain control. Patient denies increased lower extremity edema. Patient denies fever, nausea, vomiting, diarrhea, suprapubic pain, increased urgency, frequency or dysuria. Patient denies hematuria, hematochezia or melena. (Esau Chambers) - Related Data Home Medications Medication Instructions Recorded Confirmed Aspirin 81 mg PO DAILY 08/08/16 03/02/19 Atorvastatin [Lipitor] 80 mg PO DAILY 08/08/16 03/02/19 Acetaminophen [Tylenol Extra 1,000 mg PO Q4H PRN 01/27/19 03/02/19 Strength] Calcium Carb-Vit D 250Mg-125Un 1 tab PO BID 01/27/19 03/02/19 [Oscal 250+D] HYDROcodone/APAP 5-325MG [[place] 1 tab PO BID 01/27/19 03/02/19 5-325] Budesonide-Formot 160-4.5 Mcg 1 puff INHALATION RT-BID 03/02/19 03/02/19 [Symbicort 160-4.5 Mcg Inhaler] Ipratropium-Albuterol Nebulize 3 ml INHALATION RT-TID 03/02/19 03/02/19 [Duoneb 0.5 mg-3 mg/3 ml Soln] Previous Rx's Medication Instructions Recorded Furosemide [Lasix] 40 mg PO DAILY #30 tablet 02/13/19 Metoprolol Tartrate [Lopressor] 12.5 mg PO BID #0 02/13/19 Potassium Chloride ER [K-Dur 10] 10 meq PO DAILY #30 tab.er.prt 02/13/19 guaiFENesin [Mucinex] 1,200 mg PO Q12HR #30 tablet.er 02/13/19 Allergies Allergy/AdvReac Type Severity Reaction Status Date / Time No Known Allergies Allergy Verified 03/02/19 10:42 Review of Systems ROS Other: All systems not noted in ROS Statement are negative. <Esau Chambers - Last Filed: 03/02/19 11:34> ROS Other: All systems not noted in ROS Statement are negative. <Fidencio Spring - Last Filed: 03/02/19 12:41> ROS Statement: Those systems with pertinent positive or pertinent negative responses have been documented in the HPI. Past Medical History Past Medical History: Coronary Artery Disease (CAD), COPD, Hypertension, Myocardial Infarction (HI), Osteoarthritis (OA) Additional Past Medical History / Comment(s): TAKES FEW STEPS WITH WALKER BUT MOSTLY WHEEL CHAIR BOUND DUE TO PAIN RIGHT HIP. Last Myocardial Infarction Date:: 2014 History of Any Multi-Drug Resistant Organisms: None Reported Past Surgical History: Section, Heart Catheterization With Stent, Hysterectomy Additional Past Surgical History / Comment(s): LINDSAY CATARACTS , LASER EYE SURGERY., COLONOSCOPY, D&C, BRONCHOSCOPY,PARTIAL HYSTERECTOMY Past Anesthesia/Blood Transfusion Reactions: No Reported Reaction Date of Last Stent Placement:: 2014 Past Psychological History: No Psychological Hx Reported Smoking Status: Former smoker Past Alcohol Use History: None Reported Past Drug Use History: None Reported - Past Family History Father Family Medical History: Cancer Mother Family Medical History: Cancer Additional Family Medical History / Comment(s): COLON CA <Esau Chambers - Last Filed: 03/02/19 11:34> General Exam Limitations: no limitations General appearance: alert, in no apparent distress Head exam: Present: atraumatic, normocephalic, normal inspection Eye exam: Present: normal appearance, PERRL, EOMI Pupils: Present: normal accommodation ENT exam: Present: normal exam, mucous membranes moist Neck exam: Present: normal inspection, full ROM Respiratory exam: Present: other (Crackles noted on bilateral lungs). Absent: respiratory distress Cardiovascular Exam: Present: regular rate, normal rhythm GI/Abdominal exam: Present: soft, normal bowel sounds. Absent: distended, tenderness, guarding, rebound Extremities exam: Present: normal inspection, full ROM, normal capillary refill, other (+2 dorsalis pedis and posterior tibialis, bilaterally. No lower extremity edema.) Back exam: Present: normal inspection Neurological exam: Present: alert, oriented X3 Psychiatric exam: Present: normal affect, normal mood Skin exam: Present: warm, intact, normal color <Esau Chambers - Last Filed: 03/02/19 11:34> Course <Fidencio Spring - Last Filed: 03/02/19 12:41> Vital Signs 03/02/19 03/02/19 10:10 11:34 Temperature 98.2 F 98 F Pulse Rate 86 94 Respiratory 20 16 Rate Blood Pressure 115/71 131/60 O2 Sat by Pulse 94 L 95 Oximetry - Reevaluation(s) Reevaluation #1: 03/02/19 12:04 PA supervision: I proceeded [id number] evaluation the patient she does demonstrate evidence of shortness of breath and exertional dyspnea. She does have a left pleural effusion. She will be admitted I discuss case with Dr. Mendez. 03/02/19 12:40 Abdomen is nontender to palpation I did review the x-rays (Fidencio Spring) Medical Decision Making - Lab Data Result diagrams: 03/02/19 11:09 <Esau Chambers - Last Filed: 03/02/19 11:34> - Lab Data Result diagrams: 03/02/19 11:09 03/02/19 11:09 <Fidencio Spring - Last Filed: 03/02/19 12:41> - Lab Data Lab Results 03/02/19 03/02/19 03/02/19 Range/Units 11:09 11:09 11:09 WBC 15.9 H (3.8-10.6) k/uL RBC 3.90 (3.80-5.40) m/uL Hgb 10.6 L (11.4-16.0) gm/dL Hct 32.7 L (34.0-46.0) % MCV 83.9 D (80.0-100.0) fL MCH 27.2 (25.0-35.0) pg MCHC 32.4 (31.0-37.0) g/dL RDW 16.7 H (11.5-15.5) % Plt Count 298 (150-450) k/uL Neutrophils % 70 % Lymphocytes % 20 % Monocytes % 5 % Eosinophils % 2 % Basophils % 0 % Neutrophils # 11.2 H (1.3-7.7) k/uL Lymphocytes # 3.2 (1.0-4.8) k/uL Monocytes # 0.8 (0-1.0) k/uL Eosinophils # 0.3 (0-0.7) k/uL Basophils # 0.1 (0-0.2) k/uL Hypochromasia Slight Poikilocytosis Slight Anisocytosis Slight Sodium 130 L (137-145) mmol/L Potassium 4.3 (3.5-5.1) mmol/L Chloride 92 L (98-107) mmol/L Carbon Dioxide 24 (22-30) mmol/L Anion Gap 14 mmol/L BUN 89 H (7-17) mg/dL Creatinine 2.23 H (0.52-1.04) mg/dL Est GFR (CKD-EPI)AfAm 24 (>60 ml/min/1.73 sqM) Est GFR (CKD-EPI)NonAf 20 (>60 ml/min/1.73 sqM) Glucose 148 H (74-99) mg/dL Calcium 9.4 (8.4-10.2) mg/dL Total Bilirubin 0.8 (0.2-1.3) mg/dL AST 49 H (14-36) U/L ALT 37 (9-52) U/L Alkaline Phosphatase 86 (38-126) U/L Total Protein 6.3 (6.3-8.2) g/dL Albumin 3.3 L (3.5-5.0) g/dL Amylase 89 (30-110) U/L Lipase 147 (23-300) U/L Urine Color Yellow Urine Appearance Cloudy H (Clear) Urine pH 5.0 (5.0-8.0) Ur Specific [place] 1.014 (1.001-1.035) Urine Protein 1+ H (Negative) Urine Glucose (UA) Negative (Negative) Urine Ketones Negative (Negative) Urine Blood Trace H (Negative) Urine Nitrite Negative (Negative) Urine Bilirubin Negative (Negative) Urine Urobilinogen <2.0 (<2.0) mg/dL Ur Leukocyte Esterase Large H (Negative) Urine RBC 4 (0-5) /hpf Urine WBC 48 H (0-5) /hpf Ur Squamous Epith Cells 6 H (0-4) /hpf Amorphous Sediment Rare H (None) /hpf Hyaline Casts 4 H (0-2) /lpf Urine Mucus Rare H (None) /hpf Disposition <Esau Chambers - Last Filed: 03/02/19 11:34> <Fidencio Spring - Last Filed: 03/02/19 12:41> Clinical Impression: Pleural effusion on left, Abdominal pain Disposition: ADMITTED IP TO THIS HOSP Condition: Stable
--- NOTE | 2019-03-02 11:15 | XR ---
EXAMINATION TYPE: XR chest 2V DATE OF EXAM: 03/02/2019 COMPARISON: 02/12/2019 HISTORY: 79-year-old female cough and pain TECHNIQUE: PA and lateral views FINDINGS: Left heart margin obscured by adjacent pleural parenchymal opacity. Mild interstitial prominence is u nchanged. Mild hyperinflation. Increasing, now moderate to large left pleural effusion with extensive adjacent opacity on the left. Atherosclerotic calcifications throughout the aorta. IMPRESSION: Increasing, now moderate to large left pleural effusion with adjacent atelectasis and/or consolidatio n. Background of COPD. Further appropriate evaluation recommended as to etiology.
--- NOTE | 2019-03-02 11:17 | XR ---
EXAMINATION TYPE: XR KUB DATE OF EXAM: 03/02/2019 CLINICAL DATA: 79-year-old female abdominal pain, PHH COMPARISON: None FINDINGS: No evidence for free intraperitoneal air. Scattered air-fluid levels in the colon. No differential air-fluid levels in the small bowel or abnor mal bowel dilatation. Moderate stool in the right side of the colon. Scattered air extends distally i nto the rectum. Vascular calcifications. Nonspecific calcifications in the left paramedian epigastric region measuring up to 1.2 cm are nonspe cific. IMPRESSION: 1. Overall nonobstructive bowel gas pattern. No free air. 2. A few scattered air-fluid levels in the colon could represent ileus or enteritis. Moderate stool o n the right. 3. Nonspecific calcifications left paramedian epigastric region could represent vascular calcificatio ns, pancreatic calcifications in the setting of chronic pancreatitis, or left renal calculi measuring up to 1.2 cm.
[2019-03-02 11:26] LABS: Amorphous Sediment,Urine Rare /hpf; Appearance,Urine Cloudy (Clear); Bilirubin,Urine Negative (Negative); Blood,Urine Trace (Negative); Color,Urine Yellow; Glucose,Urine (UA) Negative (Negative); Hyaline Casts,Urine 4 /lpf (0-2); Ketones,Urine Negative (Negative); Leukocyte Esterase,Urine Large (Negative); Mucus,Urine Rare /hpf; Nitrite,Urine Negative (Negative); Protein,Urine 1+ (Negative); RBC,Urine 4 /hpf (0-5); Specific Gravity,Urine 1.014 (1.001-1.035); Squamous Epithelial Cell,Urine 6 /hpf (0-4); Urobilinogen,Urine <2.0 mg/dL (<2.0); WBC,Urine 48 /hpf (0-5)
[2019-03-02 11:29] LABS: Albumin 3.3 g/dL (3.5-5.0); Calcium 9.4 mg/dL (8.4-10.2); Potassium 4.3 mmol/L (3.5-5.1); Total Bilirubin 0.8 mg/dL (0.2-1.3); Total Protein 6.3 g/dL (6.3-8.2)
[2019-03-02 11:42] LABS: Anisocytosis Slight; Basophils # (A) 0.1 k/uL (0-0.2); Basophils % (A) 0 %; Eosinophils # (A) 0.3 k/uL (0-0.7); Eosinophils % (A) 2 %; HCT 32.7 % (34.0-46.0); HGB 10.6 gm/dL (11.4-16.0); Hypochromasia Slight; Lymphocytes # (A) 3.2 k/uL (1.0-4.8); Lymphocytes % (A) 20 %; MCH 27.2 pg (25.0-35.0); MCHC 32.4 g/dL (31.0-37.0); Mean Platelet Volume 7.9; Monocytes # (A) 0.8 k/uL (0-1.0); Monocytes % (A) 5 %; Neutrophils # (A) 11.2 k/uL (1.3-7.7); Neutrophils % (A) 70 %; Platelet Count 298 k/uL (150-450); Poikilocytosis Slight; RDW 16.7 % (11.5-15.5); WBC 15.9 k/uL (3.8-10.6)
[2019-03-02] MEDS ORDERED: NALOXONE 0.4 MG/ML 1 ML VIAL IV PRN (12:08)
[2019-03-02 12:20] LABS: MCV 83.9 fL (80.0-100.0)
[2019-03-02] MEDS ORDERED: IPRATROPIUM-ALBUTEROL 3 ML NEB INHALATION PRN (14:23)
--- NOTE | 2019-03-02 14:49 | P.CNPUL ---
History of Present Illness Consult date: 03/02/19 Requesting physician: Justin Mendez Reason for consult: dyspnea, cough, pleural effusion, abnormal CXR/CT Chief complaint: Left lateral and posterior chest discomfort, flank pain, dyspnea History of present illness: This is a 79-year-old white female patient that follows with Dr. Mendoza, with past medical history of coronary artery disease with previous stenting, hypertension, previous myocardial infarction, suspected COPD, osteoarthritis, former smoker, was recently hospitalized at this hospital for acute exacerbation of congestive heart failure, acute kidney injury. Patient was supposed to undergo right hip arthroplasty, which had to be canceled related to times of increasing peripheral edema, shortness of breath. Patient's proBNP on last admission was 49,300, troponins were 0.14, 0.14, 0.13. Echocardiogram completed on 02/10/2019 revealing preserved left ventricular systolic function with an EF of 67-70%, mildly thickened aortic valve which was trileaflet, mild MR, mild TR, and mild pulmonary hypertension, right-sided pressures of 42.7 mmHg. She was diuresed, clinically improved, she was discharged home in stable condition on 02/17/2019. She was discharged home on diuretics, Symbicort, DuoNeb nebulized treatments, Mucinex, and prednisone taper. Patient came in to the hospital on 03/02/2019 with complaints of left-sided chest discomfort along lower ribs, lateral lower rib cage, left flank pain and abdominal discomfort in the left upper abdomen. She does have a congested cough, wheezing. Denied any fever or chills. Did have some mild shortness of breath, but no significant distress. She took current discharge medications as prescribed, and she states her generalized edema and lower extremity edema had significantly improved. Chest x-ray showed increasing moderate to large left pleural effusion with adjacent atelectasis and/or consolidation on the background of COPD. Were consulted in regards to this large pleural effusion. Review of Systems All systems: negative Constitutional: Denies chills, Denies fever Eyes: denies blurred vision, denies pain Ears, nose, mouth and throat: Denies headache, Denies sore throat Cardiovascular: Denies chest pain, Denies shortness of breath Respiratory: Reports cough with sputum, Reports dyspnea, Reports home oxygen, Reports wheezing, Denies cough Gastrointestinal: Denies abdominal pain, Denies diarrhea, Denies nausea, Denies vomiting Genitourinary: Denies dysuria, Denies hematuria Musculoskeletal: Denies myalgias Musculoskeletal: right: hip pain Integumentary: Denies pruritus, Denies rash Neurological: Denies numbness, Denies weakness Psychiatric: Denies anxiety, Denies depression Endocrine: Denies fatigue, Denies weight change Past Medical History Past Medical History: Coronary Artery Disease (CAD), COPD, Hypertension, Myocardial Infarction ([place]), Osteoarthritis (OA) Additional Past Medical History / Comment(s): TAKES FEW STEPS WITH WALKER BUT MOSTLY WHEEL CHAIR BOUND DUE TO PAIN RIGHT HIP. Last Myocardial Infarction Date:: 2014 History of Any Multi-Drug Resistant Organisms: None Reported Past Surgical History: Section, Heart Catheterization With Stent, Hysterectomy Additional Past Surgical History / Comment(s): LINDSAY CATARACTS , LASER EYE SURGERY., COLONOSCOPY, D&C, BRONCHOSCOPY,PARTIAL HYSTERECTOMY Past Anesthesia/Blood Transfusion Reactions: No Reported Reaction Date of Last Stent Placement:: 2014 Past Psychological History: No Psychological Hx Reported Smoking Status: Former smoker Past Alcohol Use History: None Reported Past Drug Use History: None Reported - Past Family History Father Family Medical History: Cancer Mother Family Medical History: Cancer Additional Family Medical History / Comment(s): COLON CA Medications and Allergies Home Medications Medication Instructions Recorded Confirmed Type Aspirin 81 mg PO DAILY 08/08/16 03/02/19 History Atorvastatin [Lipitor] 80 mg PO DAILY 08/08/16 03/02/19 History Acetaminophen [Tylenol Extra 1,000 mg PO Q4H PRN 01/27/19 03/02/19 History Strength] Calcium Carb-Vit D 250Mg-125Un 1 tab PO BID 01/27/19 03/02/19 History [Oscal 250+D] HYDROcodone/APAP 5-325MG [[place] 1 tab PO BID 01/27/19 03/02/19 History 5-325] Furosemide [Lasix] 40 mg PO DAILY #30 tablet 02/13/19 03/02/19 Rx Metoprolol Tartrate [Lopressor] 12.5 mg PO BID #0 02/13/19 03/02/19 Rx Potassium Chloride ER [K-Dur 10] 10 meq PO DAILY #30 tab.er.prt 02/13/19 03/02/19 Rx guaiFENesin [Mucinex] 1,200 mg PO Q12HR #30 tablet.er 02/13/19 03/02/19 Rx Budesonide-Formot 160-4.5 Mcg 1 puff INHALATION RT-BID 03/02/19 03/02/19 History [Symbicort 160-4.5 Mcg Inhaler] Ipratropium-Albuterol Nebulize 3 ml INHALATION RT-TID 03/02/19 03/02/19 History [Duoneb 0.5 mg-3 mg/3 ml Soln] Allergies Allergy/AdvReac Type Severity Reaction Status Date / Time No Known Allergies Allergy Verified 03/02/19 10:42 Physical Exam Vitals: Vital Signs Temp Pulse Resp BP Pulse Ox 03/02/19 14:09 97.8 F 70 16 128/78 98 03/02/19 12:53 98 F 92 16 128/66 96 03/02/19 11:34 98 F 94 16 131/60 95 03/02/19 10:10 98.2 F 86 20 115/71 94 L Intake and Output 03/01/19 03/02/19 03/02/19 22:59 06:59 14:59 Other: Weight 62.596 kg GENERAL EXAM: Alert, pleasant, 79-year-old white female on 2 L of oxygen with a pulse ox of 98%, comfortable in no apparent distress. HEAD: Normocephalic/atraumatic. EYES: Normal reaction of pupils, equal size. Conjunctiva pink, sclera white. NOSE: Clear with pink turbinates. THROAT: No erythema or exudates. NECK: No masses, no JVD, no thyroid enlargement, no adenopathy. CHEST: No chest wall deformity. Symmetrical expansion. LUNGS: Equal air entry with diffuse wheezes, rhonchi, and diminished breath soun ds over left posterior base CVS: Regular rate and rhythm, normal S1 and S2, no gallops, no murmurs, no rubs ABDOMEN: Soft, nontender. No hepatosplenomegaly, normal bowel sounds, no guarding or rigidity. EXTREMITIES: No clubbing, no edema, no cyanosis, 2+ pulses and upper and lower extremities. MUSCULOSKELETAL: Muscle strength and tone normal. SPINE: No scoliosis or deformity SKIN: No rashes CENTRAL NERVOUS SYSTEM: Alert and oriented -3. No focal deficits, tone is normal in all 4 extremities. PSYCHIATRIC: Alert and oriented -3. Appropriate affect. Intact judgment and insight. Results - Laboratory Findings CBC and BMP: 03/02/19 11:09 03/02/19 11:09 Abnormal lab findings: Abnormal Labs 03/02/19 03/02/19 03/02/19 11:09 11:09 11:09 WBC 15.9 H Hgb 10.6 L Hct 32.7 L RDW 16.7 H Neutrophils # 11.2 H Sodium 130 L Chloride 92 L BUN 89 H Creatinine 2.23 H Glucose 148 H AST 49 H Albumin 3.3 L Urine Appearance Cloudy H Urine Protein 1+ H Urine Blood Trace H Ur Leukocyte Esterase Large H Urine WBC 48 H Ur Squamous Epith Cells 6 H Amorphous Sediment Rare H Hyaline Casts 4 H Urine Mucus Rare H - Diagnostic Findings Chest x-ray: report reviewed, image reviewed Assessment and Plan Plan: Assessment: #1. Large left-sided pleural effusion, and secondary left lower pleuritic chest pain, shortness of breath #2. Recent hospitalization for exacerbation of COPD, and congestive heart failure with diastolic dysfunction #3. Left flank discomfort, urinalysis with large amount of leukocyte esterase, and increased WBCs, possibly urinary tract infection #4. Acute kidney injury, likely related to diuretic therapy #5. Coronary artery disease, with previous stenting of the circumflex artery #6. Suspect a history of COPD #7. History of nicotine dependence, currently in remission, quit smoking 3 months ago, carries over 50-[id number]-[id number] history of smoking #8. History of myocardial infarction #9. Osteoarthritis #10. Mild hyponatremia, likely related to diuretic therapy Plan: We will obtain ultrasound of the chest with markings to see if there is free- flowing fluid in the pleural space. We'll start DuoNeb nebulized treatments, Pulmicort, Perforomist, IV Solu-Medrol, Rocephin for antibiotic coverage, send a urine culture. Patient is comfortable, denies any acute distress. We'll hold off on the diuretics right now, home meds have been reordered. Follow-up blood work in the morning. Proceed with thoracentesis if the chest ultrasound shows a sizable pocket of free-flowing fluid. I performed a history & physical examination of the patient and discussed their management with my nurse practitioner, Susanne Benitez. I reviewed the nurse practitioner's note and agree with the documented findings and plan of care. Lung sounds are positive for diffuse wheezes throughout the lung miranda. The findings and the impression was discussed with the patient. I attest to the doc umentation by the nurse practitioner. Time with Patient: Greater than 30
--- NOTE | 2019-03-02 15:00 | US ---
EXAMINATION TYPE: US chest DATE OF EXAM: 03/02/2019 COMPARISON: NONE CLINICAL HISTORY: left pleural effusion. Left pleural effusion TECHNIQUE: Targeted ultrasound of the posterior lower left hemithorax EXAM MEASUREMENTS: Left Pleural Effusion pocket size: 9.6 cm Left skin surface to fluid distance: 2.2 cm Lung seen within mid portion of fluid pocket Left side MARKED for possible thoracentesis outside the dept. Pulmonologists are able to review the images in the patient?s EMR. IMPRESSIONS: Left pleural effusion
[2019-03-02] MEDS: methylPREDNISolone SOD SUCCI 125 MG/2 ML VIAL IV SCH ×3 (15:07→23:25)
[2019-03-02] MEDS: IPRATROPIUM-ALBUTEROL 3 ML NEB INHALATION SCH ×2 (15:48→20:15)
[2019-03-02] MEDS: guaiFENesin 600 MG TABLET.ER PO SCH ×2 (16:37→20:29)
[2019-03-02] MEDS: BUDESONIDE 1 MG/2 ML NEBU INHALATION SCH (20:15)
[2019-03-02] MEDS: FORMOTEROL FUMARATE 20 MCG/2 ML NEBU INHALATION SCH (20:15)
[2019-03-02] MEDS: METOPROLOL TARTRATE 12.5 MG TAB PO SCH (20:28)
[2019-03-02] MEDS: HYDROcodone/APAP 5-325MG 1 EACH TAB PO SCH (20:28)
--- NOTE | 2019-03-02 21:48 | P.HPIM ---
History of Present Illness H&P Date: 03/02/19 Chief Complaint: Short of breath History of presenting complaint: This is a pleasant 79-year-old patient of Dr. serna from [place]. Patient was recently in the hospital for about a week and discharged on February 13. Patient was then admitted for COPD exacerbation being a smoker and CHF exacerbation. EF is 60-65%. Chronic stable medical conditions include hypertensive heart disease, coronary artery disease with stent, hypertension, and osteoarthritis. Patient recently was due to get orthopedic surgery but this was postponed because of loss admission. Patient now presents with the cough which has been persistent. Congested in the chest. Occasionally bringing up some sputum. No fever or chills. But compared to the last admission she is overall a bit better. No edema. She has pain on the left rib cage lower aspect when she coughs not otherwise present. Patient ER was found to have significant left- sided pleural effusion. Also present on the last admission. Review of systems: GEN.: Tired EYES: None HEENT: Decreased hearing NECK: None RESPIRATORY: As above CARDIOVASCULAR: As above GASTROINTESTINAL: None GENITOURINARY: None MUSCULOSKELETAL: Pain in some joints] LYMPHATICS: None HEMATOLOGICAL: None PSYCHIATRY: None NEUROLOGICAL: Occasional forgetful Past medical history: Includes CHF with EF of 60-65%, hypertensive heart disease, COPD, coronary artery disease with a prior history of stent, hypertension, osteoarthritis. Social history: Smoked a pack a day for 60 years until about 3 weeks ago. No alcohol. Boyfriend lives with her. Does use a walker. Family history: Colon cancer Physical examination: VITAL SIGNS: 98, 94, 16, 1 30 x 60, 95% on 2 L GENERAL: Average built, laying in bed, a bit tired appearing. EYES: Pupils equal. Conjunctiva normal. HEENT: External appearance of nose and ears normal, oral cavity grossly normal. NECK: JVD not raised; masses not palpable. HEART: First and second heart sounds are normal; no edema. LUNGS: Respiratory rate increased, bilateral inspiratory and expiratory crackles more so on the left side. ABDOMEN: Soft, nontender, liver spleen not palpable, no masses palpable. LYMPHATICS: No lymph nodes palpable in the axilla and neck. PSYCH: Alert and oriented x3; mood and affect normal. NEUROLOGICAL: Cranial nerves grossly intact; no facial asymmetry, power and sensation grossly intact MUSCULAR skeletal: Evidence of osteoarthritis in the hands Investigations: Reviewed in the clinical context. White count 15.9, hemoglobin 10.6, crit is 28, potassium 4.3, BUN 89, creatinine 2.23 Patient is BUN and creatinine was 87/1.85 on February 13 Chest x-ray film personally reviewed by me shows large left-sided pleural effusion Assessment: Large left pleural effusion possibly from underlying congestive heart failure -Chronic congestive heart failure from diastolic dysfunction EF 60-65% -Hypertensive heart disease -Acute COPD exacerbation in an ex-smoker -Coronary artery disease with prior history of stent -Advanced primary osteoarthritis -Acute renal failure patient's creatinine has gone from 1.85-2.23 in the last few weeks -Chronic kidney disease suspect underlying nephrosclerosis -Left lower rib cage pain musculoskeletal from coughing Plan: Pulmonary was consulted. They ordered a chest ultrasound. Home medications reviewed. Patient is put on bronchodilators. We'll also get a nephrology opinion. Care was discussed with the patient. Patient may need left-sided t horacentesis. Will give 1 dose of IV Lasix 80 mg a morning. Past Medical History Past Medical History: Coronary Artery Disease (CAD), COPD, Hypertension, Myoca rdial Infarction ([place]), Osteoarthritis (OA) Additional Past Medical History / Comment(s): TAKES FEW STEPS WITH WALKER BUT MOSTLY WHEEL CHAIR BOUND DUE TO PAIN RIGHT HIP. Last Myocardial Infarction Date:: 2014 History of Any Multi-Drug Resistant Organisms: None Reported Past Surgical History: Section, Heart Catheterization With Stent, Hysterectomy Additional Past Surgical History / Comment(s): LINDSAY CATARACTS , LASER EYE SURGERY., COLONOSCOPY, D&C, BRONCHOSCOPY,PARTIAL HYSTERECTOMY Past Anesthesia/Blood Transfusion Reactions: No Reported Reaction Date of Last Stent Placement:: 2014 Past Psychological History: No Psychological Hx Reported Smoking Status: Former smoker Past Alcohol Use History: None Reported Past Drug Use History: None Reported - Past Family History Father Family Medical History: Cancer Mother Family Medical History: Cancer Additional Family Medical History / Comment(s): COLON CA Medications and Allergies Home Medications Medication Instructions Recorded Confirmed Type Aspirin 81 mg PO DAILY 08/08/16 03/02/19 History Atorvastatin [Lipitor] 80 mg PO DAILY 08/08/16 03/02/19 History Acetaminophen [Tylenol Extra 1,000 mg PO Q4H PRN 01/27/19 03/02/19 History Strength] Calcium Carb-Vit D 250Mg-125Un 1 tab PO BID 01/27/19 03/02/19 History [Oscal 250+D] HYDROcodone/APAP 5-325MG [[place] 1 tab PO BID 01/27/19 03/02/19 History 5-325] Furosemide [Lasix] 40 mg PO DAILY #30 tablet 02/13/19 03/02/19 Rx Metoprolol Tartrate [Lopressor] 12.5 mg PO BID #0 02/13/19 03/02/19 Rx Potassium Chloride ER [K-Dur 10] 10 meq PO DAILY #30 tab.er.prt 02/13/19 03/02/19 Rx guaiFENesin [Mucinex] 1,200 mg PO Q12HR #30 tablet.er 02/13/19 03/02/19 Rx Budesonide-Formot 160-4.5 Mcg 1 puff INHALATION RT-BID 03/02/19 03/02/19 History [Symbicort 160-4.5 Mcg Inhaler] Ipratropium-Albuterol Nebulize 3 ml INHALATION RT-TID 03/02/19 03/02/19 History [Duoneb 0.5 mg-3 mg/3 ml Soln] Allergies Allergy/AdvReac Type Severity Reaction Status Date / Time No Known Allergies Allergy Verified 03/02/19 10:42 Physical Exam Vitals: Vital Signs Temp Pulse Pulse Resp BP BP Pulse Ox 03/02/19 21:00 84 03/02/19 20:50 80 03/02/19 20:49 80 03/02/19 20:33 80 03/02/19 19:23 98.6 F 16 117/63 90 L 03/02/19 15:57 78 03/02/19 15:49 77 03/02/19 15:28 98.1 F 101 H 131/80 91 L 03/02/19 15:14 68 18 128/66 03/02/19 14:09 97.8 F 70 16 128/78 98 03/02/19 12:53 98 F 92 16 128/66 96 03/02/19 11:34 98 F 94 16 131/60 95 03/02/19 10:10 98.2 F 86 20 115/71 94 L Intake and Output 06/26/19 06/26/19 06/26/19 06:59 14:59 22:59 Other: Weight 62.596 kg Results CBC & Chem 7: 03/02/19 11:09 03/02/19 11:09 Labs: Abnormal Lab Results - Last 24 Hours (Table) 03/02/19 03/02/19 03/02/19 Range/Units 11:09 11:09 11:09 WBC 15.9 H (3.8-10.6) k/uL Hgb 10.6 L (11.4-16.0) gm/dL Hct 32.7 L (34.0-46.0) % RDW 16.7 H (11.5-15.5) % Neutrophils # 11.2 H (1.3-7.7) k/uL Sodium 130 L (137-145) mmol/L Chloride 92 L (98-107) mmol/L BUN 89 H (7-17) mg/dL Creatinine 2.23 H (0.52-1.04) mg/dL Glucose 148 H (74-99) mg/dL AST 49 H (14-36) U/L Albumin 3.3 L (3.5-5.0) g/dL Urine Appearance Cloudy H (Clear) Urine Protein 1+ H (Negative) Urine Blood Trace H (Negative) Ur Leukocyte Esterase Large H (Negative) Urine WBC 48 H (0-5) /hpf Ur Squamous Epith Cells 6 H (0-4) /hpf Amorphous Sediment Rare H (None) /hpf Hyaline Casts 4 H (0-2) /lpf Urine Mucus Rare H (None) /hpf Microbiology - Last 24 Hours (Table) 03/02/19 11:09 Urine Culture - Preliminary Urine,Voided Thrombosis Risk Factor Assmnt - Choose All That Apply Any of the Below Risk Factors Present?: Yes Each Factor Represents 1 point: Abnormal pulmonary function (COPD), Obesity (BMI >25) Other Risk Factors: Yes Each Risk Factor Represents 2 Points: Age 61-74 years Thrombosis Risk Factor Assessment Total Risk Factor Score: 4 Thrombosis Risk Factor Assessment Level: Moderate Risk
[2019-03-03] MEDS: methylPREDNISolone SOD SUCCI 125 MG/2 ML VIAL IV SCH ×4 (05:53→22:59)
[2019-03-03] MEDS ORDERED: FUROSEMIDE 10 MG/ML 10 ML VIAL IV SCH (07:00)
[2019-03-03] MEDS: BUDESONIDE 1 MG/2 ML NEBU INHALATION SCH ×2 (07:14→20:40)
[2019-03-03] MEDS: FORMOTEROL FUMARATE 20 MCG/2 ML NEBU INHALATION SCH ×2 (07:14→20:40)
[2019-03-03] MEDS: IPRATROPIUM-ALBUTEROL 3 ML NEB INHALATION SCH ×4 (07:14→20:40)
--- NOTE | 2019-03-03 08:33 | XR ---
EXAMINATION TYPE: XR chest 1V portable DATE OF EXAM: 03/03/2019 COMPARISON: 03/02/2019 HISTORY: Follow-up for pleural effusion TECHNIQUE: Single frontal view of the chest is obtained. FINDINGS: There is now complete opacification of the left lung with leftward mediastinal shift. Mild interstitial pulmonary edema seen on the right with right infrahilar linear airspace disease, likely atelectasis. No acute osseous pathology is seen. Cardiomediastinal silhouette is obscured. IMPRESSION: Complete opacification of the left lung may represent complete atelectasis with endobron chial obstruction or large pleural effusion with associated atelectasis as there is leftward mediasti nal shift, secondary sign of volume loss. Right infrahilar atelectasis and mild interstitial edema ar e noted.
[2019-03-03] MEDS: HYDROcodone/APAP 5-325MG 1 EACH TAB PO SCH ×2 (08:45→20:56)
[2019-03-03] MEDS: ATORVASTATIN 80 MG TAB PO SCH (08:46)
[2019-03-03] MEDS: POTASSIUM CHLORIDE ER 10 MEQ TAB.ER.PRT PO SCH (08:46)
[2019-03-03] MEDS: guaiFENesin 600 MG TABLET.ER PO SCH ×2 (08:46→20:56)
[2019-03-03] MEDS: METOPROLOL TARTRATE 12.5 MG TAB PO SCH ×2 (08:46→20:56)
[2019-03-03] MEDS: ASPIRIN 81 MG PO SCH (08:46)
[2019-03-03 09:10] LABS: Anisocytosis Slight; HCT 29.3 % (34.0-46.0); HGB 9.6 gm/dL (11.4-16.0); Hypochromasia Slight; MCH 27.7 pg (25.0-35.0); MCHC 32.7 g/dL (31.0-37.0); MCV 84.7 fL (80.0-100.0); Mean Platelet Volume 8.1; Platelet Count 289 k/uL (150-450); Poikilocytosis Slight; RBC 3.46 m/uL (3.80-5.40); RDW 16.9 % (11.5-15.5); WBC 11.6 k/uL (3.8-10.6)
[2019-03-03 09:18] LABS: Calcium 9.3 mg/dL (8.4-10.2); Potassium 4.5 mmol/L (3.5-5.1)
[2019-03-03] MEDS: FUROSEMIDE 10 MG/ML 4 ML VIAL IV SCH ×2 (09:18→20:56)
--- NOTE | 2019-03-03 09:41 | P.NPCON ---
History of Present Illness - Reason for Consult chronic renal failure - History of Present Illness Reason for consultation: Chronic kidney disease History of present illness: Patient is a 79-year-old female seen in renal consultation for chronic kidney disease. Patient has chronic kidney disease stage IV secondary to cardiorenal syndrome with recent baseline creatinine in the range of 1.8-2.2. Patient presented to the hospital with left-sided pain in the upper abdomen and rib cage area. She also admits to congestion. Patient has history of diastolic CHF. She was taking Lasix 40 mg daily at home. On imaging she was noted to have significant left-sided pleural effusion and is scheduled for thoracentesis today. She is maintained on IV Lasix 40 mg twice daily. Admits to good urine output. No hematuria or dysuria. No vomiting or diarrhea. Edema in her legs has significantly improved since last hospital admission. Denies use of nonsteroidals. No history of diabetes. Hemodynamically stable. Patient was seen in the observation unit. Vital signs are stable. General: The patient appeared well nourished and normally developed. HEENT: Head exam is unremarkable. Neck is without jugular venous distension. LUNGS: Breath sounds decreased. HEART: Rate and Rhythm are regular. First and second heart sounds normal. No murmurs, rubs or gallops. ABDOMEN: Abdominal exam reveals normal bowel sounds. Non-tender and non- distended. No evidence of peritonitis. EXTREMITITES: No clubbing, cyanosis, or edema. Past Medical History Past Medical History: Coronary Artery Disease (CAD), COPD, Hypertension, Myocardial Infarction ([place]), Osteoarthritis (OA) Additional Past Medical History / Comment(s): TAKES FEW STEPS WITH WALKER BUT MOSTLY WHEEL CHAIR BOUND DUE TO PAIN RIGHT HIP. Last Myocardial Infarction Date:: 2014 History of Any Multi-Drug Resistant Organisms: None Reported Past Surgical History: Section, Heart Catheterization With Stent, H ysterectomy Additional Past Surgical History / Comment(s): LINDSAY CATARACTS , LASER EYE SURGERY., COLONOSCOPY, D&C, BRONCHOSCOPY,PARTIAL HYSTERECTOMY Past Anesthesia/Blood Transfusion Reactions: No Reported Reaction Date of Last Stent Placement:: 2014 Past Psychological History: No Psychological Hx Reported Smoking Status: Former smoker Past Alcohol Use History: None Reported Past Drug Use History: None Reported - Past Family History Father Family Medical History: Cancer Mother Family Medical History: Cancer Additional Family Medical History / Comment(s): COLON CA Medications and Allergies Home Medications Medication Instructions Recorded Confirmed Type Aspirin 81 mg PO DAILY 08/08/16 03/02/19 History Atorvastatin [Lipitor] 80 mg PO DAILY 08/08/16 03/02/19 History Acetaminophen [Tylenol Extra 1,000 mg PO Q4H PRN 01/27/19 03/02/19 History Strength] Calcium Carb-Vit D 250Mg-125Un 1 tab PO BID 01/27/19 03/02/19 History [Oscal 250+D] HYDROcodone/APAP 5-325MG [[place] 1 tab PO BID 01/27/19 03/02/19 History 5-325] Furosemide [Lasix] 40 mg PO DAILY #30 tablet 02/13/19 03/02/19 Rx Metoprolol Tartrate [Lopressor] 12.5 mg PO BID #0 02/13/19 03/02/19 Rx Potassium Chloride ER [K-Dur 10] 10 meq PO DAILY #30 tab.er.prt 02/13/19 Rx guaiFENesin [Mucinex] 1,200 mg PO Q12HR #30 tablet.er 02/13/19 03/02/19 Rx Budesonide-Formot 160-4.5 Mcg 1 puff INHALATION RT-BID 03/02/19 03/02/19 History [Symbicort 160-4.5 Mcg Inhaler] Ipratropium-Albuterol Nebulize 3 ml INHALATION RT-TID 03/02/19 03/02/19 History [Duoneb 0.5 mg-3 mg/3 ml Soln] Allergies Allergy/AdvReac Type Severity Reaction Status Date / Time No Known Allergies Allergy Verified 03/02/19 10:42 Physical Exam Vitals: Vital Signs Temp Pulse Pulse Resp BP BP BP 03/03/19 07:40 97.5 F L 83 18 98/66 03/03/19 07:33 84 03/03/19 07:25 88 03/03/19 07:16 88 03/03/19 03:12 16 03/03/19 00:00 97.9 F 90 16 91/56 03/02/19 21:00 84 03/02/19 20:50 80 03/02/19 20:49 80 03/02/19 20:33 80 03/02/19 20:00 16 03/02/19 19:23 98.6 F 16 117/63 03/02/19 15:57 78 03/02/19 15:49 77 03/02/19 15:28 98.1 F 101 H 131/80 03/02/19 15:14 68 18 128/66 03/02/19 14:09 97.8 F 70 16 128/78 03/02/19 12:53 98 F 92 16 128/66 03/02/19 11:34 98 F 94 16 131/60 03/02/19 10:10 98.2 F 86 20 115/71 Pulse Ox 03/03/19 07:40 94 L 03/03/19 07:33 03/03/19 07:25 03/03/19 07:16 03/03/19 03:12 03/03/19 00:00 90 L 03/02/19 21:00 03/02/19 20:50 03/02/19 20:49 03/02/19 20:33 03/02/19 20:00 03/02/19 19:23 90 L 03/02/19 15:57 03/02/19 15:49 03/02/19 15:28 91 L 03/02/19 15:14 03/02/19 14:09 98 03/02/19 12:53 96 03/02/19 11:34 95 03/02/19 10:10 94 L Intake and Output 03/02/19 03/03/19 03/03/19 22:59 06:59 14:59 Intake Total 240 Balance 240 Intake: Oral 240 Other: # Voids 1 1 Results - Lab Results Most recent lab results Calcium 9.3 mg/dL (8.4-10.2) 03/03/19 08:28 03/03/19 08:28 03/03/19 08:28 Assessment and Plan Plan: Assessment: 1. Chronic kidney disease stage IV secondary to cardiorenal syndrome. Recent creatinine in the range of 1.8-2.2. 2. Hypervolemic hyponatremia. 3. Left-sided pleural effusion. Scheduled for thoracentesis today. 4. Diastolic CHF. 5. Anemia of chronic kidney disease. Rule out iron deficiency. 6. Pyuria. Follow-up urine culture. Plan: Start IV Lasix 40 mg twice daily. Low-salt diet. Check iron studies. Continue to monitor renal function and urine output. Upon discharge, I will change her to oral Demadex 20 mg once daily. Thank you for the consultation. I will continue to follow the patient with you during her hospital stay.
--- NOTE | 2019-03-03 11:28 | P.PN ---
Subjective Progress Note Date: 03/03/19 Principal diagnosis: Left lateral posterior chest pain secondary to a large left pleural effusion This is a 79-year-old white female patient that follows with Dr. Mendoza, with past medical history of coronary artery disease with previous stenting, hypertension, previous myocardial infarction, suspected COPD, osteoarthritis, former smoker, was recently hospitalized at this hospital for acute exacerbation of congestive heart failure, acute kidney injury. Patient was supposed to undergo right hip arthroplasty, which had to be canceled related to times of increasing peripheral edema, shortness of breath. Patient's proBNP on last admission was 49,300, troponins were 0.14, 0.14, 0.13. Echocardiogram completed on 02/10/2019 revealing preserved left ventricular systolic function with an EF of 67-70%, mildly thickened aortic valve which was trileaflet, mild MR, mild TR, and mild pulmonary hypertension, right-sided pressures of 42.7 mmHg. She was diuresed, clinically improved, she was discharged home in stable condition on 02/17/2019. She was discharged home on diuretics, Symbicort, DuoNeb nebulized treatments, Mucinex, and prednisone taper. Patient came in to the hospital on 03/02/2019 with complaints of left-sided chest discomfort along lower ribs, lateral lower rib cage, left flank pain and abdominal discomfort in the left upper abdomen. She does have a congested cough, wheezing. Denied any fever or chills. Did have some mild shortness of breath, but no significant distress. She took current discharge medications as prescribed, and she states her generalized edema and lower extremity edema had significantly improved. Chest x-ray showed increasing moderate to large left pleural effusion with adjacent atelectasis and/or consolidation on the background of COPD. Were consulted in regards to this large pleural effusion. The patient is seen today 03/03/2018 in follow-up in the observation unit. She is currently awake and alert in no acute distress. She is still somewhat dyspneic on minimal exertion. Maintaining O2 saturations in the 90s on 2 L/m per nasal cannula. She's afebrile. Hemodynamically stable. Urine culture pending. White count 11.6. Hemoglobin 9.6. Creatinine 2.17. Ultrasound of the left pleural effusion revealed a pocket size 9.6 cm. Marked for thoracentesis. She has been on Lasix 40 mg IV every 12 hours. Today's chest x- ray continues to show complete opacification of the left lung secondary to large pleural effusion. Objective - Vital Signs Vital signs: Vital Signs Temp 97.5 F L 03/03/19 07:40 Pulse 94 03/03/19 11:15 Resp 18 03/03/19 11:15 BP 149/72 03/03/19 11:15 Pulse Ox 88 L 03/03/19 11:15 Intake & Output 03/02/19 03/03/19 03/03/19 18:59 06:59 18:59 Intake Total 240 Balance 240 Weight 62.596 kg Intake: Oral 240 Other: # Voids 1 - Exam GENERAL EXAM: Alert, pleasant, 79-year-old female on 2 L of oxygen with a pulse ox of 94%, comfortable in no apparent distress. HEAD: Normocephalic/atraumatic. EYES: Normal reaction of pupils, equal size. Conjunctiva pink, sclera white. NOSE: Clear with pink turbinates. THROAT: No erythema or exudates. NECK: No masses, no JVD, no thyroid enlargement, no adenopathy. CHEST: No chest wall deformity. Symmetrical expansion. LUNGS: Equal air entry with diffuse wheezes, rhonchi, and diminished breath sounds over left posterior base CVS: Regular rate and rhythm, normal S1 and S2, no gallops, no murmurs, no rubs ABDOMEN: Soft, nontender. No hepatosplenomegaly, normal bowel sounds, no guard ing or rigidity. EXTREMITIES: No clubbing, no edema, no cyanosis, 2+ pulses and upper and lower extremities. MUSCULOSKELETAL: Muscle strength and tone normal. SPINE: No scoliosis or deformity SKIN: No rashes CENTRAL NERVOUS SYSTEM: No focal deficits, tone is normal in all 4 extremities. PSYCHIATRIC: Alert and oriented -3. Appropriate affect. Intact judgment and insight. - Labs CBC & Chem 7: 03/03/19 08:28 03/03/19 08:28 Labs: Abnormal Lab Results - Last 24 Hours (Table) 03/02/19 03/02/19 03/02/19 Range/Units 11:09 11:09 11:09 WBC 15.9 H (3.8-10.6) k/uL RBC (3.80-5.40) m/uL Hgb 10.6 L (11.4-16.0) gm/dL Hct 32.7 L (34.0-46.0) % RDW 16.7 H (11.5-15.5) % Neutrophils # 11.2 H (1.3-7.7) k/uL Sodium 130 L (137-145) mmol/L Chloride 92 L (98-107) mmol/L BUN 89 H (7-17) mg/dL Creatinine 2.23 H (0.52-1.04) mg/dL Glucose 148 H (74-99) mg/dL AST 49 H (14-36) U/L Albumin 3.3 L (3.5-5.0) g/dL Urine Appearance Cloudy H (Clear) Urine Protein 1+ H (Negative) Urine Blood Trace H (Negative) Ur Leukocyte Esterase Large H (Negative) Urine WBC 48 H (0-5) /hpf Ur Squamous Epith Cells 6 H (0-4) /hpf Amorphous Sediment Rare H (None) /hpf Hyaline Casts 4 H (0-2) /lpf Urine Mucus Rare H (None) /hpf 03/03/19 03/03/19 Range/Units 08:28 08:28 WBC 11.6 H (3.8-10.6) k/uL RBC 3.46 L (3.80-5.40) m/uL Hgb 9.6 L (11.4-16.0) gm/dL Hct 29.3 L (34.0-46.0) % RDW 16.9 H (11.5-15.5) % Neutrophils # (1.3-7.7) k/uL Sodium 132 L (137-145) mmol/L Chloride 93 L (98-107) mmol/L BUN 97 H (7-17) mg/dL Creatinine 2.17 H (0.52-1.04) mg/dL Glucose 233 H (74-99) mg/dL AST (14-36) U/L Albumin (3.5-5.0) g/dL Urine Appearance (Clear) Urine Protein (Negative) Urine Blood (Negative) Ur Leukocyte Esterase (Negative) Urine WBC (0-5) /hpf Ur Squamous Epith Cells (0-4) /hpf Amorphous Sediment (None) /hpf Hyaline Casts (0-2) /lpf Urine Mucus (None) /hpf Microbiology - Last 24 Hours (Table) 03/02/19 11:09 Urine Culture - Preliminary Urine,Voided Assessment and Plan Assessment: Assessment: #1. Large left-sided pleural effusion, and secondary left lower pleuritic chest pain, shortness of breath. Status post left-sided thoracentesis with 1200 ML's of dark bloody fluid removed. Suspect exudative. #2. Recent hospitalization for exacerbation of COPD, and congestive heart failure with diastolic dysfunction #3. Left flank discomfort, urinalysis with large amount of leukocyte esterase, and increased WBCs, possibly urinary tract infection #4. Acute kidney injury, likely related to diuretic therapy #5. Coronary artery disease, with previous stenting of the circumflex artery #6. Suspect a history of COPD #7. History of nicotine dependence, currently in remission, quit smoking 3 months ago, carries over [id number] history of smoking #8. History of myocardial infarction #9. Osteoarthritis #10. Mild hyponatremia, likely related to diuretic therapy Plan: The patient was seen and evaluated by Dr. Rogers. Chest x-ray and ultrasound reviewed. He did go ahead and perform a left-sided thoracentesis with 1200 mL of dark bloody fluid removed. Appears exudative. Sent for analysis and pathology. Follow-up chest x-ray pending. We will obtain a computed tomography scan of the chest rule out any underlying mass or lesion. Continue with DuoNeb inhalations, Pulmicort and Perforomist inhalations, IV Solu-Medrol. Antibiotics in the form of ceftriaxone. We'll increase her activity as tolerated. We'll continue to follow and make further recommendations based on her clinical status. I, the cosigning physician, performed a history & physical examination of the patient. Lungs sounds few scattered rhonchi, crackles in left base, diminished. Maintaining good O2 saturations in the 90s on 2 L/m per nasal. I discussed the assessment and plan of care with my nurse practitioner, Shyla Blankenship. I attest to the above note as dictated by her.
--- NOTE | 2019-03-03 11:33 | XR ---
EXAMINATION TYPE: XR chest 1V portable DATE OF EXAM: 03/03/2019 COMPARISON: Prior chest x-ray 03/03/2019 at earlier time HISTORY: Status post left thoracentesis TECHNIQUE: Single frontal view of the chest is obtained. FINDINGS: Interval improved visualization of the left upper lobe. There is persistent retrocardiac d ensity obscures left hemidiaphragm. Patient is rotated. Interstitium is increased. Heart may be enlar ged. The aorta is dense and ectatic. No pneumothorax. IMPRESSION: No evident complication status post thoracentesis. Follow-up recommended.
--- NOTE | 2019-03-03 11:38 | PCN ---
PROCEDURE NOTE PROCEDURE: Left thoracentesis. REASON FOR THORACENTESIS: Large left pleural effusion. PREOPERATIVE DIAGNOSIS: Large left pleural effusion. POSTOPERATIVE DIAGNOSIS: Large left pleural effusion. OPERATORS: Dr. Lawson, Dr. Blankenship and Catracho Benitez. Indication pleural effusion. A time-out was completed verifying correct patient, procedure, site, positioning , and implant (s) or special equipment if applicable. Ultrasound guidance was used and appropriate fluid pocket was identified and marked. Patient was positioned, prepped and draped in usual sterile fashion. Lidocaine was used to anesthetize the area. A Thoracentesis catheter was introduced into the pleural space and fluid was removed. Blood loss was none. A chest x-ray was ordered to evaluate for pneumothorax. Total Fluid Removed 1200 mL Color of Fluid Quite bloody. Fluid was sent for appropriate laboratory tests. Patient tolerated the procedure well and there were no complications. There was an informed consent. There was universal timeout. 1200 mL of fluid was removed from the left pleural space. The left chest was marked by ultrasound. The patient tolerated the procedure well. There was a stat chest x-ray ordered after the procedure. The fluid was 1200 mL and quite bloody. The fluid will be sent for analysis including cytology, chemistry and microbiology. No additional recommendations are made. There was no immediate complication and the patient tolerated the procedure well. MMODL / IJN: [id number] /
--- NOTE | 2019-03-03 12:34 | CT ---
EXAMINATION TYPE: CT chest wo con DATE OF EXAM: 03/03/2019 COMPARISON: Radiograph same day HISTORY: 79-year-old female Left lung mass. TECHNIQUE: Contiguous axial scanning of the chest without IV contrast. Coronal and sagittal reconstru ctions performed. CT DLP: 249.5 mGycm Automated exposure control for dose reduction was used. FINDINGS: Heart upper limits of normal in size without pericardial effusion. Coronary vessel calcifications are present. There is leftward shift of the heart due to volume loss in the left mid thorax. Moderate arthritis cardiac arch calcifications. There is an direct takeoff of the left vertebral bijal ry directly from the aortic arch. Large caliber to the main right and left pulmonary arteries measuring 2.9 and 2.8 cm, respectively, c ompatible with underlying pulmonary arterial hypertension. There is mediastinal lymphadenopathy measuring up to 1.6 cm precarinal, 1.4 cm AP window, and 1.3 cm subcarinal. 0.9 cm right pericardiac. Suggestion of some thickening of the central bronchovascular bundles and scattered nodularity. There seems to be some volume loss and consolidation within the medial segment right middle lobe. Add itional volume loss/consolidation inferior lingular. Background of mild emphysema. Scattered areas of nodularity measuring 7 mm and smaller are present bilaterally in the lungs. Larger nodule measures 1.2 cm in the left suprahilar region. There is cut off of the left lower lobe bronchus with collapse of the left lower lobe. Underlying sma ll left effusion. Trace anterior midlung pneumothorax measuring only 4 mm wide and extending 3.6 cm craniocaudal. Visualized upper abdomen shows small gallstones in the left renal cyst as well as a posterior gastric fundal diverticulum. Bones: No osseous destructive process. IMPRESSION: 1. TRACE ANTERIOR MIDLUNG PNEUMOTHORAX MEASURING ONLY 4 MM WIDE AND SPANNING 3.6 CM CRANIOCAUDAL. THE RE IS RESIDUAL SMALL LEFT EFFUSION AFTER THORACENTESIS. 2. CUT OFF OF THE LEFT LOWER LOBE BRONCHUS WITH COMPLETE LEFT LOWER LOBAR COLLAPSE. CONSIDER ENDOBRON CHIAL LESION OR MUCOUS PLUGGING. BRONCHOSCOPY IF INDICATED. 3. VOLUME LOSS AND CONSOLIDATION MEDIAL RIGHT MIDDLE LOBE AND INFERIOR LINGULA. CORRELATE TO EXCLUDE PNEUMONIA. 4. CENTRAL INTERSTITIAL/PERIBRONCHOVASCULAR THICKENING AND SCATTERED NODULARITY MEASURING UP TO 7 MM. THERE IS ALSO MEDIASTINAL LYMPHADENOPATHY MEASURING UP TO 1.6 CM. FINDINGS COULD BE ON AN INFLAMMATO RY BASIS SUCH SARCOIDOSIS OR COULD REPRESENT ATYPICAL INFECTIONS. METASTATIC DISEASE NOT EXCLUDED AT THIS TIME. 5. DOMINANT PULMONARY NODULE MEASURES 1.2 CM IN THE LEFT SUPRAHILAR REGION. FOLLOW-UP RECOMMENDED. 6. COPD AND PULMONARY ARTERIAL HYPERTENSION.
[2019-03-03 15:12] VITALS: BMI 25.2
[2019-03-03 16:35] LABS: Iron Saturation 18.94 (12.00-45.00)
[2019-03-03] MEDS: DOCUSATE 100 MG CAP PO PRN (21:05)
--- NOTE | 2019-03-03 21:36 | P.PN ---
Progress Note - Text Progress Note Date: 03/03/19 Chief Complaint: Short of breath Interval history: This is a pleasant 79-year-old patient of Dr. serna from [place]. Patient was recently in the hospital for about a week and discharged on February 13. Patient was then admitted for COPD exacerbation being a smoker and CHF exacerbation. EF is 60-65%. Chronic stable medical conditions include hypertensive heart disease, coronary artery disease with stent, hypertension, and osteoarthritis. Patient recently was due to get orthopedic surgery but this was postponed because of loss admission. Patient now presents with the cough which has been persistent. Congested in the chest. Occasionally bringing up some sputum. No fever or chills. But compared to the last admission she is overall a bit better. No edema. She has pain on the left rib cage lower aspect when she coughs not otherwise present. Patient ER was found to have significant left- sided pleural effusion. Also present on the last admission. Today-thoracentesis was carried out today. 1200 mL of bloody fluid was obtained. Breathing a bit better. Tolerated diet. Review of systems: Was done for constitutional, cardiovascular, GI, pulmonary. relevant finding as above Physical examination: VITAL SIGNS: 97.5, 83, 18, 98 x 66, 94% on 2 L GENERAL: Sitting up in bed, tired. EYES: Pupils equal. Conjunctiva normal. HEENT: External appearance of nose and ears normal, oral cavity grossly normal. NECK: JVD not raised; masses not palpable. HEART: First and second heart sounds are normal; no edema. LUNGS: Respiratory rate increased, bilateral inspiratory and expiratory crackles more so on the left. ABDOMEN: Soft, nontender, liver spleen not palpable, no masses palpable. PSYCH: Alert and oriented x3; mood and affect normal. MUSCULAR skeletal: Evidence of osteoarthritis in the hands Investigations: Reviewed in the clinical context. Computed tomography scan of the chest shows left lower lobe collapse soft lymph nodes present White count 11.6, hemoglobin 9.6, sodium 132, BUN 97, creatinine 2.17 Assessment: Large left pleural effusion , with thoracentesis 1200 mL of bloody fluid -Chronic congestive heart failure from diastolic dysfunction EF 60-65% -Hypertensive heart disease -Acute COPD exacerbation in an ex-smoker -Coronary artery disease with prior history of stent -Advanced primary osteoarthritis -Acute renal failure patient's creatinine has gone from 1.85-2.23 in the last few weeks, prerenal component -Chronic kidney disease suspect underlying nephrosclerosis -Left lower rib cage pain musculoskeletal from coughing -Left lower lobe collapse per computed tomography scan -Hyponatremia possibly hypoosmolar on presentation Plan: The pleural fluid appeared to be exudative. Of interest also the same continue current medication treatment plan. Repeat electrolytes and follow
[2019-03-04] MEDS: methylPREDNISolone SOD SUCCI 125 MG/2 ML VIAL IV SCH ×3 (05:29→17:04)
--- NOTE | 2019-03-04 08:02 | P.PN ---
Subjective Patient is seen in follow-up for chronic kidney disease. Patient has chronic kidney disease stage IV secondary to cardiorenal syndrome with recent baseline creatinine in the range of 1.8-2.2. Patient presented with dyspnea. She has history of diastolic CHF. She was noted to have large left-sided pleural effusion and underwent thoracentesis yesterday with 1.2 L drained. She feels better today. Urine output is good. Currently maintained on IV Lasix 40 mg twice daily. Vital signs are stable. General: The patient appeared well nourished and normally developed. HEENT: Head exam is unremarkable. Neck is without jugular venous distension. LUNGS: Breath sounds decreased. HEART: Rate and Rhythm are regular. First and second heart sounds normal. No murmurs, rubs or gallops. ABDOMEN: Abdominal exam reveals normal bowel sounds. Non-tender and non- distended. No evidence of peritonitis. EXTREMITITES: No clubbing, cyanosis, or edema. Objective - Vital Signs Vital signs: Vital Signs Temp 97.8 F 03/03/19 23:42 Pulse 100 03/03/19 23:42 Resp 18 03/04/19 03:17 BP 92/64 03/03/19 23:42 Pulse Ox 94 L 03/03/19 23:42 Intake & Output 03/03/19 03/04/19 03/04/19 18:59 06:59 18:59 Intake Total 1080 Balance 1080 Weight 62.596 kg Intake: Oral 880 Other 200 Other: # Voids 1 - Labs CBC & Chem 7: 03/03/19 08:28 03/03/19 08:28 Labs: Abnormal Lab Results - Last 24 Hours (Table) 03/03/19 03/03/19 03/03/19 Range/Units 08:28 08:28 08:28 WBC 11.6 H (3.8-10.6) k/uL RBC 3.46 L (3.80-5.40) m/uL Hgb 9.6 L (11.4-16.0) gm/dL Hct 29.3 L (34.0-46.0) % RDW 16.9 H (11.5-15.5) % Sodium 132 L (137-145) mmol/L Chloride 93 L (98-107) mmol/L BUN 97 H (7-17) mg/dL Creatinine 2.17 H (0.52-1.04) mg/dL Glucose 233 H (74-99) mg/dL Iron 43 L (50-170) ug/dL TIBC 227 L (228-460) ug/dL Ferritin 1395.0 H (10.0-291.0) ng/mL Microbiology - Last 24 Hours (Table) 03/02/19 11:09 Urine Culture - Final Urine,Voided 03/03/19 06:05 Gram Stain - Preliminary Sputum Assessment and Plan Plan: Assessment: 1. Chronic kidney disease stage IV secondary to cardiorenal syndrome. Recent creatinine in the range of 1.8-2.2. 2. Hypervolemic hyponatremia. 3. Left-sided pleural effusion. Status post thoracentesis yesterday was 1.2 L drained. 4. Diastolic CHF. 5. Anemia of chronic kidney disease. High ferritin level noted. 6. Pyuria. Follow-up urine culture. Plan: Maintain IV Lasix 40 mg twice daily. Low-salt diet. Add Aranesp. Continue to monitor renal function and urine output. Upon discharge, I will change her to oral Demadex 20 mg once daily. I advised her to monitor her weight closely at home and to call our office if gains more than 2-3 pounds. I also advised her to follow a low-salt diet and 60-70 ounces of fluid restriction per day.
[2019-03-04] MEDS: BUDESONIDE 1 MG/2 ML NEBU INHALATION SCH ×2 (08:10→19:20)
[2019-03-04] MEDS: FORMOTEROL FUMARATE 20 MCG/2 ML NEBU INHALATION SCH ×2 (08:11→19:21)
[2019-03-04] MEDS: IPRATROPIUM-ALBUTEROL 3 ML NEB INHALATION SCH ×5 (08:11→19:21)
[2019-03-04 08:27] LABS: Calcium 8.8 mg/dL (8.4-10.2); Magnesium 2.3 mg/dL (1.6-2.3); Potassium 4.4 mmol/L (3.5-5.1)
[2019-03-04] MEDS: FUROSEMIDE 10 MG/ML 4 ML VIAL IV SCH (09:33)
[2019-03-04] MEDS ORDERED: LIDOCAINE 1% INJ 10MG/ML (20 ML MDV) ONE (11:00)
[2019-03-04] MEDS ORDERED: KETAMINE 10 MG/ML 20 ML VIAL ONE (11:00)
[2019-03-04] MEDS ORDERED: PROPOFOL 10 MG/ML 20 ML VIAL IV ONE (11:00)
[2019-03-04] MEDS ORDERED: MIDAZOLAM 2 MG/2 ML VIAL ONE (11:00)
[2019-03-04] MEDS ORDERED: SODIUM CHLORIDE 0.9% 500 ML 500 ML IV ONE (11:05)
[2019-03-04] MEDS ORDERED: LIDOCAINE 2% INJ 20 MG/ML INTRATRACH ONE (11:26)
--- NOTE | 2019-03-04 11:34 | P.PN ---
Subjective Progress Note Date: 03/04/19 Principal diagnosis: Left lateral posterior chest pain secondary to a large left pleural effusion This is a 79-year-old white female patient that follows with Dr. Mendoza, with past medical history of coronary artery disease with previous stenting, hypertension, previous myocardial infarction, suspected COPD, osteoarthritis, former smoker, was recently hospitalized at this hospital for acute exacerbation of congestive heart failure, acute kidney injury. Patient was supposed to undergo right hip arthroplasty, which had to be canceled related to times of increasing peripheral edema, shortness of breath. Patient's proBNP on last admission was 49,300, troponins were 0.14, 0.14, 0.13. Echocardiogram completed on 02/10/2019 revealing preserved left ventricular systolic function with an EF of 67-70%, mildly thickened aortic valve which was trileaflet, mild MR, mild TR, and mild pulmonary hypertension, right-sided pressures of 42.7 mmHg. She was diuresed, clinically improved, she was discharged home in stable condition on 02/17/2019. She was discharged home on diuretics, Symbicort, DuoNeb nebulized treatments, Mucinex, and prednisone taper. Patient came in to the hospital on 03/02/2019 with complaints of left-sided chest discomfort along lower ribs, lateral lower rib cage, left flank pain and abdominal discomfort in the left upper abdomen. She does have a congested cough, wheezing. Denied any fever or chills. Did have some mild shortness of breath, but no significant distress. She took current discharge medications as prescribed, and she states her ge neralized edema and lower extremity edema had significantly improved. Chest x- ray showed increasing moderate to large left pleural effusion with adjacent atelectasis and/or consolidation on the background of COPD. Were consulted in regards to this large pleural effusion. The patient is seen today 03/03/2018 in follow-up in the observation unit. She is currently awake and alert in no acute distress. She is still somewhat dyspneic on minimal exertion. Maintaining O2 saturations in the 90s on 2 L/m per nasal cannula. She's afebrile. Hemodynamically stable. Urine culture pending. White count 11.6. Hemoglobin 9.6. Creatinine 2.17. Ultrasound of the left pleural effusion revealed a pocket size 9.6 cm. Marked for thoracentesis. She has been on Lasix 40 mg IV every 12 hours. Today's chest x- ray continues to show complete opacification of the left lung secondary to large pleural effusion. On 03/04/2019 patient seen in follow-up in the observation unit. History she underwent left-sided thoracentesis with removal of 1200 mL of bloody pleural effusion, which was very suspicious for malignant effusion. CT chest was obtained showing trace anterior mid lung pneumothorax, residual small left effusion after thoracentesis. There was a suspicious endobronchial lesion or mucous plugging in the left lower lobe bronchus with complete left lower lobar collapse. There was volume loss and consolidation in the medial right middle lobe and inferior lingula. No central interstitial. Bronchovascular thickening and scattered nodularity, also mediastinal lymphadenopathy measuring up to 1.6 cm. Metastatic disease could not be excluded, and patient was scheduled for bronchoscopy with airway examination and possible biopsies today. Overall she states she is breathing easier, lung sounds are still coarse, rhonchorous, patient is afebrile, she is on 2 L of oxygen with a pulse ox of 98%. Preliminary Emmanuel stain of the sputum showed gram-positive cocci and peers, few gram-positive bacilli and few gram-negative bacilli, fungal cultures pending. Patient is on Rocephin for antibiotic coverage, she is on IV steroids, nebulized bronchodilators. Objective - Vital Signs Vital signs: Vital Signs Temp 97.7 F 03/04/19 08:00 Pulse 80 03/04/19 08:28 Resp 18 03/04/19 08:00 BP 98/66 03/04/19 08:00 Pulse Ox 98 03/04/19 08:00 Intake & Output 03/03/19 03/04/19 03/04/19 18:59 06:59 18:59 Intake Total 1080 Balance 1080 Weight 62.596 kg Intake: Oral 880 Other 200 Other: # Voids 1 - Exam GENERAL EXAM: Alert, pleasant, 79-year-old female on 2 L of oxygen with a pulse ox of 98%, comfortable in no apparent distress. HEAD: Normocephalic/atraumatic. EYES: Normal reaction of pupils, equal size. Conjunctiva pink, sclera white. NOSE: Clear with pink turbinates. THROAT: No erythema or exudates. NECK: No masses, no JVD, no thyroid enlargement, no adenopathy. CHEST: No chest wall deformity. Symmetrical expansion. LUNGS: Equal air entry with rhonchi, and diminished breath sounds over left posterior base CVS: Regular rate and rhythm, normal S1 and S2, no gallops, no murmurs, no rubs ABDOMEN: Soft, nontender. No hepatosplenomegaly, normal bowel sounds, no guarding or rigidity. EXTREMITIES: No clubbing, no edema, no cyanosis, 2+ pulses and upper and lower extremities. MUSCULOSKELETAL: Muscle strength and tone normal. SPINE: No scoliosis or deformity SKIN: No rashes CENTRAL NERVOUS SYSTEM: No focal deficits, tone is normal in all 4 extremities. PSYCHIATRIC: Alert and oriented -3. Appropriate affect. Intact judgment and insight. - Labs CBC & Chem 7: 03/03/19 08:28 03/04/19 07:18 Labs: Abnormal Lab Results - Last 24 Hours (Table) 03/03/19 03/04/19 Range/Units 08:28 07:18 Sodium 132 L (137-145) mmol/L Chloride 95 L (98-107) mmol/L Carbon Dioxide 19 L (22-30) mmol/L BUN 105 H* (7-17) mg/dL Creatinine 2.24 H (0.52-1.04) mg/dL Glucose 258 H (74-99) mg/dL Iron 43 L (50-170) ug/dL TIBC 227 L (228-460) ug/dL Ferritin 1395.0 H (10.0-291.0) ng/mL Microbiology - Last 24 Hours (Table) 03/02/19 11:09 Urine Culture - Final Urine,Voided 03/03/19 06:05 Gram Stain - Preliminary Sputum Assessment and Plan Plan: Assessment: #1. Large left-sided pleural effusion, and secondary left lower pleuritic chest pain, shortness of breath #2. Left lower lobe bronchus endobronchial lesion with complete left lower lobar collapse, scattered nodularity measuring up to 7 mm, and mediastinal lymphadenopathy, suspicious for metastatic disease #3. Recent hospitalization for exacerbation of COPD, and congestive heart failure with diastolic dysfunction #4. Left flank discomfort, urinalysis with large amount of leukocyte esterase, and increased WBCs, possibly urinary tract infection #5. Acute kidney injury, likely related to diuretic therapy #6. Coronary artery disease, with previous stenting of the circumflex artery #7. Suspect a history of COPD #8. History of nicotine dependence, currently in remission, quit smoking 3 months ago, carries over 45-[id number]-etwi history of smoking #9. History of myocardial infarction #10. Osteoarthritis #11. Mild hyponatremia, likely related to diuretic therapy, improving Plan: Continue with current antibiotic coverage, CT chest shows suspicious left lower bronchial endobronchial lesion with scattered nodularity, and mediastinal l ymphadenopathy, metastatic disease is a consideration, we'll proceed with bronchoscopy with BAL today, otherwise continue with current medical treatment. Pleural fluid analysis showed glucose of 179, total protein was 3600, LDH was 1500, this was a exudate of fluid, cell count showed RBCs of 173,500. White blood cell count of 760, 40% polymorphonuclear neutrophils, 50% of mononuclear neutrophils, and 3% eosinophils. Patient is agreeable to proceed with a bronchoscopy with biopsies. I performed a history & physical examination of the patient and discussed their management with my nurse practitioner, Susanne Benitez. I reviewed the nurse practitioner's note and agree with the documented findings and plan of care. Lung sounds are positive for diffuse wheezes throughout the lung miranda. The findings and the impression was discussed with the patient. I attest to the documentation by the nurse practitioner. Time with Patient: Less than 30
--- NOTE | 2019-03-04 11:55 | PCN ---
PROCEDURE NOTE PROCEDURE: Bronchoscopy, airway examination, therapeutic lavage, BAL endobronchial and transbronchial biopsies left lower lobe. PREOPERATIVE DIAGNOSIS: Lung mass, rule out lung cancer. POSTOPERATIVE DIAGNOSIS: Lung mass, rule out lung cancer. OPERATORS: Dr. Solis and Dr. Blankenship. INFANT ROOM TEACHER provided general anesthesia/unconscious sedation. There was informed consent. There was universal timeout. The patient's procedure took place in room #1 in endoscopy. After the patient was adequately sedated and being fully monitored, the bronchoscope was inserted through the right nostril. It passed through the right nasopharynx into the oropharynx. The hypopharynx was identified and topicalized. The hypopharyngeal structures all appeared relatively normal. This included the anterior commissure, true cords, false cords, arytenoids, piriform sinuses, right and left vallecula and epiglottis. After topicalization, bronchoscope was pushed through the glottic opening into the trachea. Trachea appeared normal. Tracheal tami was sharp. There were some secretions noted. The right side was evaluated first. The right upper lobe and its 3 segments, the right middle lobe and its 2 segments, right lower lobe and its 5 segments all relatively normal except for thick secretions. They were suctioned with some difficulty out of the right lung. Next, we did an evaluation on the left side. After topicalization of the left upper lobe proper and its 2 segments and the lingula and its 2 segments were found to be normal. There was significant mucosal abnormality in the left lower lobe. The mucosa was heaped and abnormal. It appeared very vascular. There was some narrowing of the bronchial lumen. There was no distinct mass or tumor, though. The mucosa looked like it was infiltrated with abnormality. Anyway, there was multiple brushings done in this area. In addition, endobronchial and transbronchial biopsies were done in this area. There was no immediate complications with some bleeding. The patient then had bronchial washings done in this area for pooled cytology. The patient tolerated the procedure well. Before the bronchoscope was withdrawn, we ensured that there was hemostasis. Once that was accomplished, the bronchoscope was withdrawn. The patient will be recovered. Additional recommendations and suggestions are forthcoming. The specimens will be sent to the laboratory for analysis. MMODL / IJN: [id number] /
[2019-03-04] MEDS ORDERED: DARBEPOETIN ALFA 40 MCG/0.4 ML SYRINGE SQ SCH (12:00)
[2019-03-04] MEDS: METOPROLOL TARTRATE 12.5 MG TAB PO SCH ×2 (12:44→21:51)
[2019-03-04] MEDS: HYDROcodone/APAP 5-325MG 1 EACH TAB PO SCH ×2 (12:45→21:51)
[2019-03-04] MEDS: POTASSIUM CHLORIDE ER 10 MEQ TAB.ER.PRT PO SCH (12:56)
[2019-03-04] MEDS: ATORVASTATIN 80 MG TAB PO SCH (12:56)
[2019-03-04] MEDS: guaiFENesin 600 MG TABLET.ER PO SCH ×2 (12:57→21:51)
[2019-03-04] MEDS: TORSEMIDE 20 MG TAB PO SCH (12:57)
[2019-03-04] MEDS: ASPIRIN 81 MG PO SCH (12:57)
[2019-03-04] MEDS: DOCUSATE 100 MG CAP PO PRN (12:57)
[2019-03-04] MEDS: SODIUM BICARBONATE TAB 650 MG TAB PO SCH ×2 (12:57→21:52)
[2019-03-04 13:51] LABS: Hemoglobin A1C 6.7 % (4.0-6.0)
[2019-03-04 14:46] LABS: Appearance,BF Cloudy; Color,BF Red; Nucleated Cells, Body Fluid 760 /uL; RBC, Body Fluid 173500 /uL
[2019-03-04 14:47] LABS: Mononuclear WBC,Body Fluid 50 %; Polynuclear WBC,Body Fluid 47 %
[2019-03-04 14:51] LABS: Total Protein, Body Fluid 3600
[2019-03-04 16:23] LABS: Appearance,BF Cloudy; Color,BF Red
[2019-03-04 16:36] LABS: Glucose,Whole Blood 339 mg/dL (75-99)
[2019-03-04] MEDS: INSULIN ASPART (NovoLOG) 100 UNIT/ML VIAL SQ SCH ×2 (17:01→21:54)
--- NOTE | 2019-03-04 17:03 | P.PN ---
Progress Note - Text Progress Note Date: 03/04/19 Chief Complaint: Short of breath Interval history: This is a pleasant 79-year-old patient of Dr. serna from [place]. Patient was recently in the hospital for about a week and discharged on February 13. Patient was then admitted for COPD exacerbation being a smoker and CHF exacerbation. EF is 60-65%. Chronic stable medical conditions include hypertensive heart disease, coronary artery disease with stent, hypertension, and osteoarthritis. Patient recently was due to get orthopedic surgery but this was postponed because of loss admission. Patient now presents with the cough which has been persistent. Congested in the chest. Occasionally bringing up some sputum. No fever or chills. But compared to the last admission she is overall a bit better. No edema. She has pain on the left rib cage lower aspect when she coughs not otherwise present. Patient ER was found to have significant left- sided pleural effusion. Also present on the last admission. Status post 1200mL of bloody thoracentesis on the left side Today-patient underwent a bronchoscopy today. [place] washings were carried out. Breathing is a bit manager park. Laying in bed. Review of systems: Was done for constitutional, cardiovascular, GI, pulmonary. relevant finding as above Current medications reviewed that included: IV ceftriaxone IV Solu-Medrol 60 mg every 6 and DuoNeb Physical examination: VITAL SIGNS: 98.2, 110, 17, 138/71, [place] 4% at 2 L GENERAL: Laying in bed, more comfortable. EYES: Pupils equal. Conjunctiva normal. HEENT: External appearance of nose and ears normal, oral cavity grossly normal. NECK: JVD not raised; masses not palpable. HEART: First and second heart sounds are normal; no edema. LUNGS: Respiratory rate increased, bilateral inspiratory and decreased crackles. ABDOMEN: Soft, nontender, liver spleen not palpable, no masses palpable. PSYCH: Alert and oriented x3; mood and affect normal. MUSCULAR skeletal: Evidence of osteoarthritis in the hands Investigations: Reviewed in the clinical context. Computed tomography scan of the chest shows left lower lobe collapse soft lymph nodes present Sodium 132 potassium 4.4 BNP 105 creatinine 2.24 Accu-Cheks 339 Assessment: Large left pleural effusion , with thoracentesis 1200 mL of bloody fluid -Chronic congestive heart failure from diastolic dysfunction EF 60-65% -Hypertensive heart disease -Acute COPD exacerbation in an ex-smoker -Coronary artery disease with prior history of stent -Advanced primary osteoarthritis -Acute renal failure patient's creatinine has gone from 1.85-2.23 in the last few weeks, prerenal component -Chronic kidney disease suspect underlying nephrosclerosis -Left lower rib cage pain musculoskeletal from coughing -Left lower lobe collapse per computed tomography scan -Hyponatremia possibly hypoosmolar on presentation -Hyperglycemia secondary to his IV steroids -Status post bronchoscopy and brushings Plan: Status post bronchoscopy. Discussed with the patient and significant other the bedside. Cut back on steroids. Encouraged to be out of bed. Await culture results.
[2019-03-04 17:53] LABS: Nucleated Cells, Body Fluid 300 /uL; RBC, Body Fluid 143400 /uL
[2019-03-04 17:58] LABS: Mononuclear WBC,Body Fluid 9 %; Polynuclear WBC,Body Fluid 91 %; Total Cells Counted,Body Fluid 100
[2019-03-04 19:57] LABS: Glucose,Whole Blood 242 mg/dL (75-99)
[2019-03-04] MEDS: methylPREDNISolone SOD SUCCI 40 MG/ML 1 ML VIAL IV SCH (23:35)
[2019-03-05 06:38] LABS: Glucose,Whole Blood 265 mg/dL (75-99)
[2019-03-05 07:03] VITALS: RESP 18
[2019-03-05] MEDS: IPRATROPIUM-ALBUTEROL 3 ML NEB INHALATION SCH ×2 (07:49→14:10)
[2019-03-05] MEDS: FORMOTEROL FUMARATE 20 MCG/2 ML NEBU INHALATION SCH (07:49)
[2019-03-05] MEDS: BUDESONIDE 1 MG/2 ML NEBU INHALATION SCH (07:49)
[2019-03-05] MEDS: INSULIN ASPART (NovoLOG) 100 UNIT/ML VIAL SQ SCH ×2 (08:15→12:51)
[2019-03-05] MEDS: methylPREDNISolone SOD SUCCI 40 MG/ML 1 ML VIAL IV SCH (08:17)
[2019-03-05] MEDS: TORSEMIDE 20 MG TAB PO SCH (08:22)
[2019-03-05] MEDS: ASPIRIN 81 MG PO SCH (08:22)
[2019-03-05] MEDS: guaiFENesin 600 MG TABLET.ER PO SCH (08:22)
[2019-03-05] MEDS: POTASSIUM CHLORIDE ER 10 MEQ TAB.ER.PRT PO SCH (08:22)
[2019-03-05] MEDS: ATORVASTATIN 80 MG TAB PO SCH (08:22)
[2019-03-05] MEDS: SODIUM BICARBONATE TAB 650 MG TAB PO SCH (08:22)
[2019-03-05] MEDS: METOPROLOL TARTRATE 12.5 MG TAB PO SCH (08:22)
[2019-03-05] MEDS: HYDROcodone/APAP 5-325MG 1 EACH TAB PO SCH (08:24)
[2019-03-05 09:41] LABS: Calcium 8.3 mg/dL (8.4-10.2); Potassium 3.6 mmol/L (3.5-5.1)
--- NOTE | 2019-03-05 10:38 | P.PN ---
Subjective Progress Note Date: 03/05/19 Seen and examined for the follow-up of acute kidney injury. Feeling better. Objective - Vital Signs Vital signs: Vital Signs Temp 97.4 F L 03/05/19 07:02 Pulse 104 H 03/05/19 08:12 Resp 18 03/05/19 07:02 BP 146/65 03/05/19 07:02 Pulse Ox 96 03/05/19 07:02 Intake & Output 03/04/19 03/05/19 03/05/19 18:59 06:59 18:59 Intake Total 200 240 Balance 200 240 Intake: Oral 200 240 Other: Voiding Method Toilet # Voids 2 1 - Exam No acute distress S1-S2 heard Decreased breath sounds Trace edema - Labs CBC & Chem 7: 03/03/19 08:28 03/05/19 09:14 Labs: Abnormal Lab Results - Last 24 Hours (Table) 03/04/19 03/04/19 03/04/19 Range/Units 07:18 16:34 19:54 Sodium (137-145) mmol/L BUN (7-17) mg/dL Creatinine (0.52-1.04) mg/dL Glucose (74-99) mg/dL POC Glucose (mg/dL) 339 H 242 H (75-99) mg/dL Hemoglobin A1c 6.7 H (4.0-6.0) % Calcium (8.4-10.2) mg/dL 03/05/19 03/05/19 Range/Units 06:34 09:14 Sodium 133 L (137-145) mmol/L BUN 99 H (7-17) mg/dL Creatinine 1.97 H (0.52-1.04) mg/dL Glucose 341 H (74-99) mg/dL POC Glucose (mg/dL) 265 H (75-99) mg/dL Hemoglobin A1c (4.0-6.0) % Calcium 8.3 L (8.4-10.2) mg/dL Microbiology - Last 24 Hours (Table) 03/03/19 06:05 Gram Stain - Final Sputum Sputum Culture - Final 03/04/19 11:00 Gram Stain - Preliminary Bronchial Brushings - Left Bronchial Washings Culture - Preliminary 03/04/19 11:00 Acid Fast Bacilli Smear - Final Bronchial Brushings - Left Acid Fast Bacilli Culture - Preliminary 03/04/19 11:00 Fungal Culture - Preliminary Bronchial Brushings - Left 03/03/19 10:55 Fungal Culture - Preliminary Pleural Fluid 03/03/19 10:55 Acid Fast Bacilli Smear - Final Pleural Fluid Acid Fast Bacilli Culture - Preliminary 03/03/19 10:55 Gram Stain - Preliminary Pleural Fluid Body Fluid Culture - Preliminary Assessment and Plan Assessment: #1 chronic kidney disease stage IV secondary to cardiorenal syndrome type II cre atinine currently at baseline. Baseline creatinine 1.8-2.2 MG per DL. #2 hypervolemic hyponatremia #3 left-sided pleural effusion status post thoracentesis with 1.2 L drained. #4 diastolic CHF #5 anemia with chronic kidney disease Plan: #1 high BUNs suspect secondary to steroids #2 continue with torsemide. Renal function stable #3 avoid nephrotoxic agents and hypotensive episodes.
[2019-03-05 11:07] LABS: Glucose,Whole Blood 275 mg/dL (75-99)
[2019-03-05 11:50] VITALS: BP 139/68; PULSE 84; TEMP 97.6
--- NOTE | 2019-03-05 13:32 | P.PN ---
Subjective Progress Note Date: 03/05/19 Principal diagnosis: Left lateral posterior chest pain secondary to a large left pleural effusion This is a 79-year-old white female patient that follows with Dr. Mendoza, with past medical history of coronary artery disease with previous stenting, hypertension, previous myocardial infarction, suspected COPD, osteoarthritis, former smoker, was recently hospitalized at this hospital for acute exacerbation of congestive heart failure, acute kidney injury. Patient was supposed to undergo right hip arthroplasty, which had to be canceled related to times of increasing peripheral edema, shortness of breath. Patient's proBNP on last admission was 49,300, troponins were 0.14, 0.14, 0.13. Echocardiogram completed on 02/10/2019 revealing preserved left ventricular systolic function with an EF of 67-70%, mildly thickened aortic valve which was trileaflet, mild MR, mild TR, and mild pulmonary hypertension, right-sided pressures of 42.7 mmHg. She was diuresed, clinically improved, she was discharged home in stable condition on 02/17/2019. She was discharged home on diuretics, Symbicort, DuoNeb nebulized treatments, Mucinex, and prednisone taper. Patient came in to the hospital on 03/02/2019 with complaints of left-sided chest discomfort along lower ribs, lateral lower rib cage, left flank pain and abdominal discomfort in the left upper abdomen. She does have a congested cough, wheezing. Denied any fever or chills. Did have some mild shortness of breath, but no significant distress. She took current discharge medications as prescribed, and she states her generalized edema and lower extremity edema had significantly improved. Chest x-ray showed increasing moderate to large left pleural effusion with adjacent atelectasis and/or consolidation on the background of COPD. Were consulted in regards to this large pleural effusion. The patient is seen today 03/05/2019 in follow-up on the regular medical floor. She is awake and alert in no acute distress. She denies any worsening shortness of breath, cough or congestion. She is status post bronchoscopy with biopsies and thoracentesis. Pathology of which is all pending. Sputum culture revealed no growth. Urine culture revealed no growth. Sodium 133. Potassium 3.6. Creatinine 1.97. She remains on DuoNeb inhalations, Pulmicort inhalations, antibiotics in the form of ceftriaxone, IV Solu-Medrol. She is anxious to go home. Objective - Vital Signs Vital signs: Vital Signs Temp 97.6 F 03/05/19 11:28 Pulse 84 03/05/19 11:28 Resp 18 03/05/19 11:28 BP 139/68 03/05/19 11:28 Pulse Ox 97 03/05/19 11:28 Intake & Output 03/04/19 03/05/19 03/05/19 18:59 06:59 18:59 Intake Total 200 240 Balance 200 240 Intake: Oral 200 240 Other: Voiding Method Toilet # Voids 2 1 - Exam GENERAL EXAM: Alert, pleasant, 79-year-old female comfortable in no apparent distress. HEAD: Normocephalic/atraumatic. EYES: Normal reaction of pupils, equal size. Conjunctiva pink, sclera white. NOSE: Clear with pink turbinates. THROAT: No erythema or exudates. NECK: No masses, no JVD, no thyroid enlargement, no adenopathy. CHEST: No chest wall deformity. Symmetrical expansion. LUNGS: Equal air entry with diffuse wheezes, rhonchi, and diminished breath sounds over left posterior base CVS: Regular rate and rhythm, normal S1 and S2, no gallops, no murmurs, no rubs ABDOMEN: Soft, nontender. No hepatosplenomegaly, normal bowel sounds, no guarding or rigidity. EXTREMITIES: No clubbing, no edema, no cyanosis, 2+ pulses and upper and lower extremities. MUSCULOSKELETAL: Muscle strength and tone normal. SPINE: No scoliosis or deformity SKIN: No rashes CENTRAL NERVOUS SYSTEM: No focal deficits, tone is normal in all 4 extremities. PSYCHIATRIC: Alert and oriented -3. Appropriate affect. Intact judgment and insight. - Labs CBC & Chem 7: 03/03/19 08:28 03/05/19 09:14 Labs: Abnormal Lab Results - Last 24 Hours (Table) 03/04/19 03/04/19 03/04/19 Range/Units 07:18 11:00 16:34 Sodium (137-145) mmol/L BUN (7-17) mg/dL Creatinine (0.52-1.04) mg/dL Glucose (74-99) mg/dL POC Glucose (mg/dL) 339 H (75-99) mg/dL Hemoglobin A1c 6.7 H (4.0-6.0) % Calcium (8.4-10.2) mg/dL Viral Test See Below H 03/04/19 03/05/19 03/05/19 Range/Units 19:54 06:34 09:14 Sodium 133 L (137-145) mmol/L BUN 99 H (7-17) mg/dL Creatinine 1.97 H (0.52-1.04) mg/dL Glucose 341 H (74-99) mg/dL POC Glucose (mg/dL) 242 H 265 H (75-99) mg/dL Hemoglobin A1c (4.0-6.0) % Calcium 8.3 L (8.4-10.2) mg/dL Viral Test 03/05/19 Range/Units 11:05 Sodium (137-145) mmol/L BUN (7-17) mg/dL Creatinine (0.52-1.04) mg/dL Glucose (74-99) mg/dL POC Glucose (mg/dL) 275 H (75-99) mg/dL Hemoglobin A1c (4.0-6.0) % Calcium (8.4-10.2) mg/dL Viral Test Microbiology - Last 24 Hours (Table) 03/03/19 06:05 Gram Stain - Final Sputum Sputum Culture - Final 03/04/19 11:00 Gram Stain - Preliminary Bronchial Brushings - Left Bronchial Washings Culture - Preliminary 03/04/19 11:00 Acid Fast Bacilli Smear - Final Bronchial Brushings - Left Acid Fast Bacilli Culture - Preliminary 03/04/19 11:00 Fungal Culture - Preliminary Bronchial Brushings - Left 03/03/19 10:55 Fungal Culture - Preliminary Pleural Fluid 03/03/19 10:55 Acid Fast Bacilli Smear - Final Pleural Fluid Acid Fast Bacilli Culture - Preliminary 03/03/19 10:55 Gram Stain - Preliminary Pleural Fluid Body Fluid Culture - Preliminary Assessment and Plan Assessment: Assessment: #1. Large left-sided pleural effusion, and secondary left lower pleuritic chest pain, shortness of breath. Status post left-sided thoracentesis with 1200 ML's of dark bloody fluid removed. Pathology pending. Status post bronchoscopy with biopsies of the left lower lobe, pathology pending. #2. Recent hospitalization for exacerbation of COPD, and congestive heart failure with diastolic dysfunction #3. Left flank discomfort, urinalysis with large amount of leukocyte esterase, and increased WBCs, possibly urinary tract infection #4. Acute kidney injury, likely related to diuretic therapy #5. Coronary artery disease, with previous stenting of the circumflex artery #6. Suspect a history of COPD #7. History of nicotine dependence, currently in remission, quit smoking 3 months ago, carries over [id number] history of smoking #8. History of myocardial infarction #9. Osteoarthritis #10. Mild hyponatremia, likely related to diuretic therapy Plan: The patient was seen and evaluated by Dr. Lawson. She is cleared for discharge from the pulmonary standpoint. Complete prednisone taper. Complete course of antibiotics. Follow-up in our office in 1-2 weeks' time. He will review the results of the biopsies at that time. I, the cosigning physician, performed a history & physical examination of the patient. Lungs sounds few scattered rhonchi, crackles in left base, diminished. Maintaining good O2 saturations in the 90s on 1 L/m per nasal. I discussed the assessment and plan of care with my nurse practitioner, Shyla Blankenship. I attest to the above note as dictated by her.
--- NOTE | 2019-03-06 18:55 | P.DS ---
Providers Date of admission: 03/03/19 14:06 Expected date of discharge: 03/05/19 Attending physician: Justin Mendez Consults: 03/02/19 12:08 Consult Physician Stat Consulting Provider: Chuy Langley Consult Reason/Comments: pleural effusion Do you want consulting provider notified?: Already Contacted 03/02/19 21:49 Consult Physician Routine Consulting Provider: Danish Gonzalez Consult Reason/Comments: acute on ckd Do you want consulting provider notified?: Yes Primary care physician: Angel Mendoza Hospital Course: Discharge diagnoses: -Large left pleural effusion , with thoracentesis 1200 mL of bloody fluid -Chronic congestive heart failure from diastolic dysfunction EF 60-65% -Hypertensive heart disease -Acute COPD exacerbation in an ex-smoker -Coronary artery disease with prior history of stent -Advanced primary osteoarthritis -Acute renal failure patient's creatinine has gone from 1.85-2.23 in the last few weeks, prerenal component -Chronic kidney disease suspect underlying nephrosclerosis -Left lower rib cage pain musculoskeletal from coughing -Left lower lobe collapse per computed tomography scan -Hyponatremia possibly hypoosmolar on presentation -Hyperglycemia secondary to his IV steroids Interval history: This is a pleasant 79-year-old patient of Dr. mendoza from [place]. Patient was recently in the hospital for about a week and discharged on February 13. Patient was then admitted for COPD exacerbation being a smoker and CHF exacerbation. EF is 60-65%. Chronic stable medical conditions include hypertensive heart disease, coronary artery disease with stent, hypertension, and osteoarthritis. Patient recently was due to get orthopedic surgery but this was postponed because of loss admission. Patient now presents with the cough which has been persistent. Congested in the chest. Occasionally bringing up some sputum. No fever or chills. But compared to the last admission she is overall a bit better. No edema. She has pain on the left rib cage lower aspect when she coughs not otherwise present. Patient ER was found to have significant left- sided pleural effusion. Also present on the last admission. Status post 1200mL of bloody thoracentesis on the left. Also underwent bronchoscopy with brushing. Treated with bronchodilators, steroids, antibiotics. Feeling much better by the time of discharge. Care was discussed with the patient and her family the day of discharge. Question answered. Discussed with Dr. Starks. Discharge planning including discussion more than 35 minutes Consultation: Dr. Starks from pulmonary Dr. Gonzalez from nephrology Procedures: Left-sided thoracentesis Bronchoscopy with lavage and cytology Physical examination: VITAL SIGNS: 97.6, 84, 18, 139/68, 97% on 1 L GENERAL: Sitting up, feeling better EYES: Pupils equal. Conjunctiva normal. HEENT: External appearance of nose and ears normal, oral cavity grossly normal. NECK: JVD not raised; masses not palpable. HEART: First and second heart sounds are normal; no edema. LUNGS: Respiratory rate increased, some wheezing, decreased crackles. ABDOMEN: Soft, nontender, liver spleen not palpable, no masses palpable. PSYCH: Alert and oriented x3; mood and affect normal. MUSCULAR skeletal: Evidence of osteoarthritis in the hands Investigations: Reviewed in the clinical context. Computed tomography scan of the chest shows left lower lobe collapse soft lymph nodes present Blood urea nitrogen 99, creatinine 1.97 Bronchoscopy cultures pending, cytology pending Patient Condition at Discharge: Stable Plan - Discharge Summary Discharge Rx Participant: Yes New Discharge Prescriptions: New Torsemide [Demadex] 20 mg PO DAILY #30 tab predniSONE 10 mg PO DAILY #30 tab Sodium Bicarbonate Tab 650 mg PO BID #60 tab Cefuroxime Axetil [Ceftin] 500 mg PO BID #10 tab Continue Atorvastatin [Lipitor] 80 mg PO DAILY Aspirin 81 mg PO DAILY Calcium Carb-Vit D 250Mg-125Un [[place]scal 250+D] 1 tab PO BID HYDROcodone/APAP 5-325MG [[place] 5-325] 1 tab PO BID Acetaminophen [Tylenol Extra Strength] 1,000 mg PO Q4H PRN PRN Reason: Pain guaiFENesin [Mucinex] 1,200 mg PO Q12HR #30 tablet.er Metoprolol Tartrate [Lopressor] 12.5 mg PO BID #0 Potassium Chloride ER [K-Dur 10] 10 meq PO DAILY #30 tab.er.prt Budesonide-Formot 160-4.5 Mcg [Symbicort 160-4.5 Mcg Inhaler] 1 puff INHALATION RT-BID Ipratropium-Albuterol Nebulize [Duoneb 0.5 mg-3 mg/3 ml Soln] 3 ml INHALATION RT-TID Discontinued Furosemide [Lasix] 40 mg PO DAILY #30 tablet Discharge Medication List Aspirin 81 mg PO DAILY 08/08/16 [History] Atorvastatin [Lipitor] 80 mg PO DAILY 08/08/16 [History] Acetaminophen [Tylenol Extra Strength] 1,000 mg PO Q4H PRN 01/27/19 [History] Calcium Carb-Vit D 250Mg-125Un [[place]scal 250+D] 1 tab PO BID 01/27/19 [History] HYDROcodone/APAP 5-325MG [[place] 5-325] 1 tab PO BID 01/27/19 [History] Metoprolol Tartrate [Lopressor] 12.5 mg PO BID #0 02/13/19 [Rx] Potassium Chloride ER [K-Dur 10] 10 meq PO DAILY #30 tab.er.prt 02/13/19 [Rx] guaiFENesin [Mucinex] 1,200 mg PO Q12HR #30 tablet.er 02/13/19 [Rx] Budesonide-Formot 160-4.5 Mcg [Symbicort 160-4.5 Mcg Inhaler] 1 puff INHALATION RT-BID 03/02/19 [History] Ipratropium-Albuterol Nebulize [Duoneb 0.5 mg-3 mg/3 ml Soln] 3 ml INHALATION RT-TID 03/02/19 [History] Cefuroxime Axetil [Ceftin] 500 mg PO BID #10 tab 03/05/19 [Rx] Sodium Bicarbonate Tab 650 mg PO BID #60 tab 03/05/19 [Rx] Torsemide [Demadex] 20 mg PO DAILY #30 tab 03/05/19 [Rx] predniSONE 10 mg PO DAILY #30 tab 03/05/19 [Rx] Follow up Appointment(s)/Referral(s): Fidencio Lawson DO [Doctor of Osteopathic Medicine] - 1 Week (call for appointment on Thursday ) Mahdi Lawson DO [Doctor of Osteopathic Medicine] - 1 Week Angel Mendoza MD [Primary Care Provider] - 1 Week [facility] Visiting Nurse, [NON-STAFF] - 1-2 Days Patient Instructions/Handouts: Cefuroxime (By mouth), Prednisone (By mouth), Torsemide (By mouth), Sodium Bicarbonate (By mouth), Pulmonary Edema (DC), Pleural Effusion (DC), Abdominal Pain (ED), Decision Aid for Stable Ischemic Heart Disease (GEN) Activity/Diet/Wound Care/Special Instructions: Pt needs indigent funds at discharge, contact CM dc if ok with dr Lawson Discharge Disposition: HOME WITH HOME HEALTH SERVICES
--- NOTE | 2019-03-08 10:03 | CDI ---
Documentation Clarification Form Date: 03/08/2019 9:42:21 AM From: CHRIS Stearns; Lucie Key Hat Presser Phone: If you have a question about this query, please contact Lucie Key Hat Presser, at [phone] between 8 am and 5 pm. Admit Date: 03/03/2019 2:06:00 PM Patient Name: Edie Villalta Visit Number: [id number] Discharge Date: 03/05/2019 2:23:00 PM ATTENTION: The Clinical Documentation Specialists (CDI) and [facility] Coding Staff appreciate your assistance in clarifying documentation. Please respond to the clarification below the line at the bottom and electronically sign. The CDI & [facility] Coding staff will review the response and follow-up if needed. Please note: Queries are made part of the Legal Health Record. If you have any questions, please contact the author of this message via ITS. Dr. Justin Mendez The final diagnosis of the pathology report states moderately differentiated adenocarcinoma left lower lobe, transbronchial needed core biopsy. Documentation states: Lung mass Patient history/risk factors: Shortness of breath, COPD, CHF, smoker Clinical Indicators: Persistent cough, pain on left rib cage area. Treatment: Paracentesis, lung biopsy. For clarity of the final diagnosis related to the lung mass, please update your final diagnosis based on the pathology results. Please clarify if there is a link between the final pathology report on the lung mass and the large left pleural effusion. Other (please specify) Unable to determine ____adenocarcinoma of the lung causing left pleural effusion MTDD
== END 2019-03-05 14:23 | disposition home health service (06) | DRG 181 ==
LOC: EC 10:06 → 1SOBS 12:21 → OBSVTOIN 03-03 14:06 → 3NMEDONC 03-05 11:02
PROVIDERS: ADMIT Hospitalist; ATTEND Hospitalist
PROC: 0W9B3ZZ Drainage of Left Pleural Cavity, Percutaneous Approach (ICD-10-PCS; principal; 2019-03-03)
PROC: 0BDJ8ZX Extraction of Left Lower Lung Lobe, Via Natural or Artificial Opening Endoscopic, Diagnostic (ICD-10-PCS; 2019-03-04 08:15)
PROC: 0B9J8ZX Drainage of Left Lower Lung Lobe, Via Natural or Artificial Opening Endoscopic, Diagnostic (ICD-10-PCS; 2019-03-04 08:15)
DX: C34.32 Malignant neoplasm of lower lobe, left bronchus or lung (principal); J91.0 Malignant pleural effusion; E87.1 Hypo-osmolality and hyponatremia; I13.0 Hypertensive heart and chronic kidney disease with heart failure and stage 1 through stage 4 chronic kidney disease, or unspecified chronic kidney disease; I50.32 Chronic diastolic (congestive) heart failure; J98.19 Other pulmonary collapse; N17.9 Acute kidney failure, unspecified; N18.4 Chronic kidney disease, stage 4 (severe); J44.1 Chronic obstructive pulmonary disease with (acute) exacerbation; D63.1 Anemia in chronic kidney disease; F17.200 Nicotine dependence, unspecified, uncomplicated; I25.10 Atherosclerotic heart disease of native coronary artery without angina pectoris; I25.2 Old myocardial infarction; I27.20 Pulmonary hypertension, unspecified; M19.91 Primary osteoarthritis, unspecified site; T50.2X5A Adverse effect of carbonic-anhydrase inhibitors, benzothiadiazides and other diuretics, initial encounter; Z79.51 Long term (current) use of inhaled steroids; Z79.82 Long term (current) use of aspirin; Z79.899 Other long term (current) drug therapy; Z80.0 Family history of malignant neoplasm of digestive organs; Z90.711 Acquired absence of uterus with remaining cervical stump; Z95.5 Presence of coronary angioplasty implant and graft; Z96.641 Presence of right artificial hip joint; Z99.3 Dependence on wheelchair; R73.9 Hyperglycemia, unspecified; T38.0X5A Adverse effect of glucocorticoids and synthetic analogues, initial encounter
CPT/HCPCS: 31623; 31624; 31625; 36415; 71045; 71046; 71250; 74018; 76604; 80048; 80053; 81001; 82150; 82728; 82945; 83036; 83540; 83550; 83615; 83690; 83735; 83880; 84157; 85025; 85027; 87070; 87086; 87102; 87116; 87205; 87206; 87252; 87496; 87498; 87502; 87529; 87634; 87798; 88104; 88108; 88305; 88341; 88342; 89050; 94640; 94760; 96374; 99285

== ENCOUNTER → 2019-03-14 | Outpatient (CLI) | payer MEDICARE ==
[2019-03-14 11:25] LABS: Anisocytosis Slight; Basophils % (A) 0 %; Eosinophils # (A) 0.1 k/uL (0-0.7); Eosinophils % (A) 0 %; HGB 10.5 gm/dL (11.4-16.0); Lymphocytes # (A) 2.7 k/uL (1.0-4.8); Lymphocytes % (A) 16 %; MCH 28.4 pg (25.0-35.0); MCHC 32.8 g/dL (31.0-37.0); MCV 86.5 fL (80.0-100.0); Mean Platelet Volume 7.1; Monocytes # (A) 0.7 k/uL (0-1.0); Monocytes % (A) 4 %; Neutrophils # (A) 13.6 k/uL (1.3-7.7); Neutrophils % (A) 79 %; Platelet Count 288 k/uL (150-450); RBC 3.71 m/uL (3.80-5.40); RDW 17.2 % (11.5-15.5); WBC 17.3 k/uL (3.8-10.6)
[2019-03-14 11:41] LABS: INR 0.9 (<1.2); Prothrombin Time 10.2 sec (9.0-12.0)
[2019-03-14 15:41] LABS: Anion Gap 12.3 mmol/L (4.00-12.00); Carbon Dioxide 26.7 mmol/L (21.6-31.8); Potassium 4.8 mmol/L (3.5-5.5)
== END | disposition home or self-care (01) ==
LOC: LABWHC1 10:30
PROVIDERS: ATTEND Orthopaedic Surgery
DX: Z01.812 Encounter for preprocedural laboratory examination (principal); M16.11 Unilateral primary osteoarthritis, right hip
CPT/HCPCS: 36415; 80051; 85025; 85610